=== PATIENT | male | born 1955 | race Two or more races ===

== ENCOUNTER → 2017-04-24 | Outpatient (CLI) | payer MEDICAID ==
[~2017-04-24] VITALS: Ht 167.6 cm; Wt 72.6 kg
== END | disposition home or self-care (01) ==
LOC: Rad HDHVI 09:44
PROVIDERS: ATTEND Internal Medicine Cardiovascular Disease
DX: I10 Essential (primary) hypertension (principal); E78.5 Hyperlipidemia, unspecified; I31.3 Pericardial effusion (noninflammatory); R07.89 Other chest pain; K21.9 Gastro-esophageal reflux disease without esophagitis
CPT/HCPCS: 78452; 93017; 93306; 96374; A9500

== ENCOUNTER 2020-01-12 16:06 | Inpatient (IN) | payer MEDICAID, OTHER ==
[~2020-01-12] VITALS: Ht 167.6 cm; Wt 73.6 kg
[2020-01-12 17:13] LABS: Basophils # (auto) 0 10 ^3/uL (0-0.2); Basophils % (auto) 0.1 % (0.0-2.0); Eosinophils # (auto) 0 10 ^3/uL (0-0.8); Hematocrit 48.8 % (41.0-53.0); Hemoglobin 16.4 g/dL (13.5-17.5); Lymphocytes # (auto) 0.6 10 ^3/uL (0.4-5.4); Mean Corpuscular Hemoglobin 27.4 pg (28.0-32.0); Mean Corpuscular Hgb Conc. 33.5 g/dL (32.0-36.0); Mean Corpuscular Volume 81.8 fL (80.0-100.0); Monocytes # (auto) 0.2 10 ^3/uL (0-1.3); Monocytes % (auto) 4.5 % (0.0-12.0); Neutrophils % (auto) 79.4 % (37.0-80.0); Nucleated Red Blood Cells % 0.3 %; Platelet Count (auto) 98 10^3/uL (140-450); Red Blood Cells 5.97 10^6/uL (4.5-5.90); Red Cell Distribution Width 14.6 % (11.8-14.3); White Blood Cell 3.8 10^3/uL (4.4-10.8)
[2020-01-12 17:26] LABS: Albumin 3.5 g/dL (3.4-5.0); Anion Gap 8 (5-15); BUN/Creatinine Ratio 16.2; Blood Urea Nitrogen 16 mg/dL (7-18); Calcium 9.2 mg/dL (8.5-10.1); Carbon Dioxide 27 mmol/L (21-32); Chloride 104 mmol/L (98-107); GFR African American 97 mL/min; GFR Non-African American 80 mL/min; Glucose 331 mg/dL (74-106); Magnesium 2.2 mg/dL (1.6-2.6); Potassium 4.2 mmol/L (3.5-5.1); Sodium 139 mmol/L (136-145)
[2020-01-12 17:31] LABS: Alanine Aminotransferase 60 U/L (16-61); Alkaline Phosphatase 88 U/L (45-117); Aspartate Aminotransferase 72 U/L (15-37); Bilirubin, Total 0.6 mg/dL (0.2-1.0); Total Protein 8.2 g/dL (6.4-8.2)
[2020-01-12 17:42] LABS: INR 1.03 (0.9-1.15); Partial Thromboplastin Time 34.2 sec (23.64-32.05)
[2020-01-12] MEDS ORDERED: SODIUM CHLORIDE 0.9% 1,000 ML IVB ONE (17:52)
[2020-01-12] MEDS ORDERED: DOXYCYCLINE 100 MG TAB/CAP PO ONE (18:00)
[2020-01-12] MEDS ORDERED: AZITHROMYCIN 500MG/ 250ML 250 ML IV ONE (18:00)
[2020-01-12] MEDS ORDERED: ASCORBIC ACID 500 MG TAB PO ONE (18:00)
[2020-01-12] MEDS ORDERED: ZINC SULFATE 220mg CAP or TAB PO ONE (18:00)
[2020-01-12] MEDS ORDERED: SODIUM CHLORIDE 0.9% 1,000 ML IV SCH (20:55)
[2020-01-12] MEDS ORDERED: MORPHINE SULF INJ 2 MG/ML SYRINGE 1ML IV PRN (21:00)
[2020-01-12] MEDS ORDERED: DEXTROSE (50%) 50ML SYRG IV PRN (21:00)
[2020-01-12] MEDS ORDERED: TEMAZEPAM 15 MG CAP PO PRN (21:00)
[2020-01-12] MEDS ORDERED: ONDANSETRON HCL 4 MG/2 ML VIAL IV PRN (21:00)
[2020-01-12] MEDS ORDERED: NITROGLYCERIN 0.4 MG SL TAB SL PRN (21:00)
[2020-01-12] MEDS ORDERED: cloNIDine HCL 0.1 MG TAB PO PRN (21:45)
[2020-01-12] MEDS: ALBUTEROL SULF HFA 90MCG INH 200DOSE IN SCH (22:00)
[2020-01-12 23:30] VITALS: BP 152/83
--- NOTE | 2020-01-12 23:30 | NUR ---
Telemetry admit from SEKOU WOODARD admitted to Telemetry unit. Patient oriented to primary RN, unit, room, bed, and unit policies regarding patient care and visiting hours. Patient now on continuous telemetry monitoring, tele box #21 and telemetry reading on arrival to unit is NSR. Patient placed on bedside oxygen, weighed by bedscale and encouraged to call if they need something. All questions and concerns addressed, patient verbalized understanding. Bed in lowest locked position, call light within reach, side rails upx 2. Will continue to monitor Q1hr and PRN.
[2020-01-12] MEDS: FAMOTIDINE 20 MG TAB PO SCH (23:35)
[2020-01-12] MEDS: DOXYCYCLINE 100MG/250ML 250 ML IV SCH (23:35)
[2020-01-13 00:36] VITALS: BP 133/80
[2020-01-13] MEDS: ACETAMINOPHEN 325 MG TAB PO PRN ×2 (00:50→23:30)
[2020-01-13] MEDS: InsuLIN REG 1unit/0.01ml Soln (100units/ml) SC SCH ×5 (00:50→23:45)
[2020-01-13] MEDS: ACCU-CHEK COMFORT CURVE STRIP VI SCH ×5 (00:51→23:29)
[2020-01-13 05:00] VITALS: BP 144/77
[2020-01-13 06:37] LABS: Basophils # (auto) 0 10 ^3/uL (0-0.2); Basophils % (auto) 0.4 % (0.0-2.0); Eosinophils # (auto) 0 10 ^3/uL (0-0.8); Hematocrit 46.7 % (41.0-53.0); Hemoglobin 15.5 g/dL (13.5-17.5); Lymphocytes # (auto) 0.8 10 ^3/uL (0.4-5.4); Lymphocytes % (auto) 17.3 % (10.0-50.0); Mean Corpuscular Hgb Conc. 33.1 g/dL (32.0-36.0); Mean Corpuscular Volume 81.5 fL (80.0-100.0); Monocytes # (auto) 0.2 10 ^3/uL (0-1.3); Monocytes % (auto) 5.4 % (0.0-12.0); Neutrophils # (auto) 3.5 10 ^3/uL (1.6-8.6); Neutrophils % (auto) 76.9 % (37.0-80.0); Nucleated Red Blood Cells % 0.2 %; Platelet Count (auto) 82 10^3/uL (140-450); Red Blood Cells 5.74 10^6/uL (4.5-5.90); Red Cell Distribution Width 14.7 % (11.8-14.3); White Blood Cell 4.6 10^3/uL (4.4-10.8)
[2020-01-13 07:02] LABS: Calcium 8.3 mg/dL (8.5-10.1); Magnesium 1.8 mg/dL (1.6-2.6); Potassium 3.9 mmol/L (3.5-5.1)
[2020-01-13 07:10] LABS: BUN/Creatinine Ratio 17.6; Bilirubin, Total 0.6 mg/dL (0.2-1.0); CRP High Sensitivity 10.7 mg/dL (< 0.3); Total Protein 7.1 g/dL (6.4-8.2)
[2020-01-13] MEDS: ALBUTEROL SULF HFA 90MCG INH 200DOSE IN SCH ×3 (08:12→23:05)
--- NOTE | 2020-01-13 08:12 | NUR ---
RT NOTE: MEDS HAD NOT BEEN ORDERED FROM PHARMACY PRIOR TO SHIFT CHANGE. WILL NOTIFY PHARMACY TO BULLET MEDS UP FOR NEXT SCHEDULED TX.
[2020-01-13 08:34] VITALS: BP 130/72
[2020-01-13] MEDS: ZINC SULFATE 220mg CAP or TAB PO SCH (09:57)
[2020-01-13] MEDS: ENOXAPARIN SOD 40 MG/0.4 ML SYRINGE SC SCH (09:58)
[2020-01-13] MEDS: ASCORBIC ACID 1,000 MG TAB PO SCH (09:58)
[2020-01-13] MEDS: DOXYCYCLINE 100MG/250ML 250 ML IV SCH ×2 (09:58→22:33)
[2020-01-13] MEDS: CHOLECALCIFEROL (VITD3) 1,000UNIT=25mCg TAB PO SCH (09:58)
[2020-01-13] MEDS: FAMOTIDINE 20 MG TAB PO SCH ×2 (09:58→22:33)
[2020-01-13 12:26] VITALS: BP 139/71
[2020-01-13] MEDS: amLODIPine BESYLATE 5 MG TAB PO SCH (13:34)
--- NOTE | 2020-01-13 16:26 | NUR ---
Assessment Patient is a 64- year-old male who is alert and oriented. Prior to admission patient lived home with family and function independently. Per patient he can care for her own ADLs. Per patient he does not have any medical equipment now. Per patient he will return to his prior living arrangements post discharge and family will transport him home. Patient PCP Dr. Lizarraga. Advise patient there is a social service consult for home oxygen and home health safety evaluation. Informed patient clinical information will be faxed to and contracted agencies for home health. Advised patient to follow up with his primary doctor. Informed patient he has the right to participate in all discharge planning. Patient verbalized understanding and agreed to discharge plan. Faxed clinical information to requesting to deliver portable oxygen to front lobby. Faxed clinical information to [facility] and [facility]. [facility] and [place] are unable to accommodate patient needs at this time. Per Ayleen with [facility] they can accept patient and will be seen within 24-48hrs upon d/c day. faxed clinical information to [facility] requesting authorization for home health and SG. Placed call to ABHINAV Quezada with [facility]. Per ABHINAV Quezada they will authorized for home health and SG. SG will deliver oxygen portable to front lobby between 16:00-19:00. Addendum: 01/13/20 at 1633 by KELBY SINGH Amended: Links added.
[2020-01-13] MEDS ORDERED: AML5T PO (16:40)
[2020-01-13] MEDS ORDERED: DOXY-338 PO (16:40)
[2020-01-13] MEDS ORDERED: ALBUAER3 IN (16:40)
[2020-01-13] MEDS ORDERED: IPRIH IN (16:40)
[2020-01-13 16:59] VITALS: BP 154/80
--- NOTE | 2020-01-13 19:20 | NUR ---
Opening note pt is A&Ox4. respirations even and nonlabored on 4Lnc. pt has a nonproductive cough. pt is ambulatory, and is encouraged to ask for standby assistance if wanting to get out of bed. POC discussed. bed in low locked position, call light within reach.
[2020-01-13 22:00] VITALS: BP 160/83
[2020-01-14 00:35] VITALS: BP 125/90
[2020-01-14 05:00] VITALS: BP 144/79
[2020-01-14] MEDS: ACCU-CHEK COMFORT CURVE STRIP VI SCH ×3 (05:17→17:44)
[2020-01-14] MEDS: InsuLIN REG 1unit/0.01ml Soln (100units/ml) SC SCH ×3 (05:22→17:46)
--- NOTE | 2020-01-14 07:18 | NUR ---
Closing note Pt is A&Ox4. respirations even and nonlabored on 4Lnc. Spo2 saturations are at 92%. no s/s of pain or discomfort at this time. pt is ambulatory. Endorsed care to day shift RN. Bed in low locked position, call light within reach.
[2020-01-14] MEDS: ALBUTEROL SULF HFA 90MCG INH 200DOSE IN SCH ×2 (07:30→15:52)
[2020-01-14 09:02] VITALS: BP 131/71
[2020-01-14] MEDS ORDERED: DexAMETHasone SOD PHOS 4 MG/1ML SDV INJ IV SCH (10:00)
[2020-01-14] MEDS: ASCORBIC ACID 1,000 MG TAB PO SCH (11:32)
[2020-01-14] MEDS: amLODIPine BESYLATE 5 MG TAB PO SCH (11:33)
[2020-01-14] MEDS: DOXYCYCLINE 100MG/250ML 250 ML IV SCH (11:34)
[2020-01-14] MEDS: CHOLECALCIFEROL (VITD3) 1,000UNIT=25mCg TAB PO SCH (11:34)
[2020-01-14] MEDS: FAMOTIDINE 20 MG TAB PO SCH (11:34)
[2020-01-14] MEDS: ACETAMINOPHEN 325 MG TAB PO PRN (11:34)
[2020-01-14] MEDS: ENOXAPARIN SOD 40 MG/0.4 ML SYRINGE SC SCH (11:36)
[2020-01-14] MEDS ORDERED: DexAMETHasone SOD PHOS 10MG/1ML VIAL INJ IV SCH (11:36)
[2020-01-14] MEDS: ZINC SULFATE 220mg CAP or TAB PO SCH (12:00)
[2020-01-14 12:30] VITALS: BP 151/79
[2020-01-14] MEDS ORDERED: PRED20TA2 PO (13:57)
[2020-01-14 17:30] VITALS: BP 132/72
--- NOTE | 2020-01-14 17:50 | NUR ---
spoke with dr nova. stated pt was cleared to dc.
--- NOTE | 2020-01-14 18:15 | NUR ---
SPOKE WITH SON REGARDING DC. STATED HE COULD BE HERE AT 1930.
[2020-01-14 18:28] VITALS: BP 132/72
--- NOTE | 2020-01-14 18:55 | NUR ---
DURING DC PROCESSES, HOME O2 TANKS AT BEDSIDE WERE FOUND TO BE LEAKING O2 WHEN VALVE WAS OPENED. PHONED SG REGARDING THIS AND UPDATED SON. SG STATED THEY WOULD REACH OUT TO A RESOURCE COORDINATOR AND CALLBACK. DC ENDORSED TO LAI SILVA.
--- NOTE | 2020-01-14 19:15 | NUR ---
Opening note pt A&Ox4. [place] Islander speaking. Respirations even and nonlabored on 3Lnc. pt denies pain or discomfort at this time. Pt will be discharged today, pending delivery of functional home oxygen tank delivery by [employer].
--- NOTE | 2020-01-14 20:35 | NUR ---
Jesus Alberto of [employer] delivered oxygen tank for pt.
--- NOTE | 2020-01-14 21:00 | NUR ---
Discharge IV and tele monitor removed. Pt escorted to down to the main entrance with Resource RN Rocio, EVS, and Public Safety. Pt escorted via wheel chair. Pts Son Chris is waiting at main entrance for picking tech.
--- NOTE | 2020-01-15 14:51 | NUR ---
Received page for consult for hospice eval. Per pt's sister Laurel she is requesting [facility]. Contacted DAMARIS Fairchild for [facility], and faxed clinical information. Pt accepted onto service and portatble tank to be delivered to the bedside. Transportation setup through [employer] for a 4 pm orange picking supervisor. No further social service concerns or issues.
== END 2020-01-14 21:15 | disposition home health service (06) | DRG 177 ==
LOC: ER 16:06 → TELE 16:07 → TELE-EAST 23:26
PROVIDERS: ADMIT Nurse Practitioner; ATTEND Internal Medicine
DX: U07.1 COVID-19 (principal); J12.89 Other viral pneumonia; J96.01 Acute respiratory failure with hypoxia; J98.11 Atelectasis; E11.9 Type 2 diabetes mellitus without complications; I10 Essential (primary) hypertension; E66.9 Obesity, unspecified; E78.5 Hyperlipidemia, unspecified; Z79.4 Long term (current) use of insulin; Z82.49 Family history of ischemic heart disease and other diseases of the circulatory system; Z83.3 Family history of diabetes mellitus; Z68.26 Body mass index [BMI] 26.0-26.9, adult
CPT/HCPCS: 36415; 71045; 80053; 82728; 82962; 83605; 83615; 83735; 84443; 84484; 85025; 85379; 85610; 85730; 86141; 87040; 93005; 94640; 96365; 96366; G0378; J1100; J1815; J3490

== ENCOUNTER 2020-01-18 19:28 | Inpatient (IN) | payer OTHER ==
[~2020-01-18] VITALS: Ht 170.2 cm; Wt 84.2 kg
[2020-01-18] MEDS: LORazepam 2MG/ML-1ML VIAL IV PRN (00:05)
[~2020-01-18 19:28] MED LIST: ALBUAER3 IN; AML5T PO; DOXY-338 PO; IPRIH IN; PRED20TA2 PO
[2020-01-18 20:44] LABS: Basophils # (auto) 0 10 ^3/uL (0-0.2); Basophils % (auto) 0.1 % (0.0-2.0); Eosinophils # (auto) 0 10 ^3/uL (0-0.8); Lymphocytes # (auto) 0.7 10 ^3/uL (0.4-5.4); Monocytes # (auto) 0.7 10 ^3/uL (0-1.3)
[2020-01-18 20:45] LABS: Hematocrit 51.6 % (41.0-53.0); Hemoglobin 16.6 g/dL (13.5-17.5); Lymphocytes % (auto) 8.4 % (10.0-50.0); Mean Corpuscular Hemoglobin 26.3 pg (28.0-32.0); Mean Corpuscular Hgb Conc. 32.2 g/dL (32.0-36.0); Mean Corpuscular Volume 81.8 fL (80.0-100.0); Monocytes % (auto) 8.1 % (0.0-12.0); Neutrophils # (auto) 7.2 10 ^3/uL (1.6-8.6); Neutrophils % (auto) 83.4 % (37.0-80.0); Nucleated Red Blood Cells % 0.2 %; Platelet Count (auto) 182 10^3/uL (140-450); Red Blood Cells 6.31 10^6/uL (4.5-5.90); Red Cell Distribution Width 15.9 % (11.8-14.3); White Blood Cell 8.6 10^3/uL (4.4-10.8)
[2020-01-18 20:58] LABS: Urine WBC None Seen /hpf (0 - 3)
[2020-01-18 21:02] LABS: Albumin 2.9 g/dL (3.4-5.0); Anion Gap 12 (5-15); Blood Urea Nitrogen 33 mg/dL (7-18); Calcium 9.2 mg/dL (8.5-10.1); Carbon Dioxide 22 mmol/L (21-32); Chloride 100 mmol/L (98-107); Potassium 4.5 mmol/L (3.5-5.1); Sodium 134 mmol/L (136-145)
[2020-01-18 21:04] LABS: Alanine Aminotransferase 47 U/L (16-61); Aspartate Aminotransferase 49 U/L (15-37); Bilirubin, Total 0.8 mg/dL (0.2-1.0); GFR African American 76 mL/min; GFR Non-African American 63 mL/min; Total Protein 7.8 g/dL (6.4-8.2)
[2020-01-18 21:11] LABS: Alkaline Phosphatase 111 U/L (45-117)
[2020-01-18 21:21] LABS: Glucose 616 mg/dL (74-106)
[2020-01-18 21:23] LABS: Urine Bacteria NONE SEEN /hpf (None Seen); Urine Blood Negative /uL (Negative); Urine Specific Gravity 1.028 (1.001-1.035)
[2020-01-18] MEDS ORDERED: SODIUM CHLORIDE 0.9% 1,000 ML IV ONE (21:30)
[2020-01-18] MEDS ORDERED: LORazepam 2MG/ML-1ML VIAL IV ONE ×2 (21:30→22:30)
[2020-01-18] MEDS ORDERED: InsuLIN REG 1unit/0.01ml Soln (100units/ml) IV ONE (21:30)
[2020-01-18] MEDS ORDERED: SUCCINYLCHOLINE CHLORIDE 20 MG/ML 10ML VIAL IV ONE (22:30)
[2020-01-18] MEDS: MIDAZOLAM DRIP 50 mg/50mL 50 ML IV SCH ×2 (22:30→23:20)
[2020-01-18] MEDS ORDERED: ETOMIDATE (2MG/ML) 20ML VIAL IV ONE (22:30)
[2020-01-18] MEDS: NOREPINEPHRINE 8 MG/250ML KIT 250 ML IV SCH ×2 (22:30→23:19)
[2020-01-19] MEDS: LORazepam 2MG/ML-1ML VIAL IV PRN ×3 (00:05→15:29)
[2020-01-19] MEDS ORDERED: InsuLIN REG 1unit/0.01ml Soln (100units/ml) IV ONE (00:30)
[2020-01-19] MEDS ORDERED: SODIUM CHLORIDE 0.9% 1,000 ML IV SCH (05:54)
[2020-01-19] MEDS ORDERED: NITROGLYCERIN 0.4 MG SL TAB SL PRN (06:00)
[2020-01-19] MEDS ORDERED: ONDANSETRON HCL 4 MG/2 ML VIAL IV PRN (06:00)
[2020-01-19] MEDS ORDERED: MORPHINE SULF INJ 2 MG/ML SYRINGE 1ML IV PRN (06:00)
[2020-01-19] MEDS ORDERED: DEXTROSE (50%) 50ML SYRG IV PRN (06:00)
[2020-01-19] MEDS: ALBUTEROL SULF HFA 90MCG INH 200DOSE IN SCH ×2 (06:15→13:42)
[2020-01-19] MEDS: ACCU-CHEK COMFORT CURVE STRIP VI SCH ×3 (06:49→18:00)
[2020-01-19] MEDS: InsuLIN REG 1unit/0.01ml Soln (100units/ml) SC SCH ×3 (06:50→18:00)
[2020-01-19] MEDS: levoFLOXacin 750MG 150 ML IV SCH (07:00)
[2020-01-19 07:38] LABS: Magnesium 2.4 mg/dL (1.6-2.6)
[2020-01-19 07:47] LABS: CRP High Sensitivity 9.62 mg/dL (< 0.3)
[2020-01-19] MEDS ORDERED: ENOXAPARIN SOD 40 MG/0.4 ML SYRINGE SC SCH (10:00)
[2020-01-19] MEDS: DexAMETHasone SOD PHOS 10MG/1ML VIAL INJ IV SCH (10:30)
[2020-01-19] MEDS: ASCORBIC ACID 1,000 MG TAB PO SCH (10:30)
[2020-01-19] MEDS: ZINC SULFATE 220mg CAP or TAB PO SCH (10:30)
[2020-01-19] MEDS: DOXYCYCLINE 100MG/250ML 250 ML IV SCH ×2 (10:30→23:05)
[2020-01-19] MEDS: ENOXAPARIN SOD 40 MG/0.4 ML SYRINGE SC SCH (10:30)
[2020-01-19] MEDS: CHOLECALCIFEROL (VITD3) 2,000 UNIT CAP PO SCH (10:30)
[2020-01-19] MEDS: FAMOTIDINE 20 MG TAB PO SCH ×2 (10:30→23:05)
[2020-01-19 14:10] VITALS: BP 137/64
[2020-01-19 23:39] LABS: BUN/Creatinine Ratio 28.8; Calcium 8.6 mg/dL (8.5-10.1); Potassium 3.9 mmol/L (3.5-5.1)
[2020-01-20] MEDS: LORazepam 2MG/ML-1ML VIAL IV PRN ×2 (00:05→07:48)
[2020-01-20] MEDS: ALBUTEROL SULF HFA 90MCG INH 200DOSE IN SCH ×2 (00:11→06:00)
[2020-01-20] MEDS: InsuLIN REG 1unit/0.01ml Soln (100units/ml) SC SCH ×4 (00:38→18:01)
[2020-01-20] MEDS: ACCU-CHEK COMFORT CURVE STRIP VI SCH ×4 (00:46→18:01)
[2020-01-20] MEDS: levoFLOXacin 750MG 150 ML IV SCH (07:27)
[2020-01-20 07:38] LABS: Basophils # (auto) 0 10 ^3/uL (0-0.2); Eosinophils # (auto) 0 10 ^3/uL (0-0.8); Mean Corpuscular Hgb Conc. 32.9 g/dL (32.0-36.0); Nucleated Red Blood Cells % 0.2 %
[2020-01-20 07:41] LABS: Basophils % (auto) 0.2 % (0.0-2.0); Hematocrit 53.2 % (41.0-53.0); Hemoglobin 17.5 g/dL (13.5-17.5); Lymphocytes # (auto) 0.6 10 ^3/uL (0.4-5.4); Lymphocytes % (auto) 3.8 % (10.0-50.0); Mean Corpuscular Hemoglobin 26.8 pg (28.0-32.0); Mean Corpuscular Volume 81.5 fL (80.0-100.0); Monocytes % (auto) 6.6 % (0.0-12.0); Neutrophils # (auto) 14.1 10 ^3/uL (1.6-8.6); Neutrophils % (auto) 89.4 % (37.0-80.0); Platelet Count (auto) 185 10^3/uL (140-450); Red Blood Cells 6.53 10^6/uL (4.5-5.90); Red Cell Distribution Width 15.4 % (11.8-14.3); White Blood Cell 15.7 10^3/uL (4.4-10.8)
[2020-01-20 07:55] LABS: Calcium 8.6 mg/dL (8.5-10.1); Potassium 3.9 mmol/L (3.5-5.1)
[2020-01-20 07:59] LABS: Albumin 2.7 g/dL (3.4-5.0); BUN/Creatinine Ratio 29.9; Magnesium 2.2 mg/dL (1.6-2.6)
[2020-01-20 08:02] LABS: Bilirubin, Total 1.1 mg/dL (0.2-1.0); Total Protein 7.8 g/dL (6.4-8.2)
[2020-01-20 08:04] LABS: Lactic Acid w/Reflex 3.3 mmol/L (0.4-2.0)
[2020-01-20] MEDS ORDERED: SUCCINYLCHOLINE CHLORIDE 20 MG/ML 10ML VIAL IV ONE ×2 (08:45→11:30)
[2020-01-20] MEDS ORDERED: ETOMIDATE (2MG/ML) 20ML VIAL IV ONE ×2 (08:45→11:30)
[2020-01-20 08:46] LABS: Alcohol, Urine < 3.0 mg/dL (0-10); Amphetamine Screen, Urine NEGATIVE (NEGATIVE); Barbiturate Scree,Urine NEGATIVE (NEGATIVE); Benzodiazephine Screen, Urine NEGATIVE (NEGATIVE); Cannabinoid Screen, Urine NEGATIVE (NEGATIVE); Cocaine Screen, Urine NEGATIVE (NEGATIVE); Opiate Scree,Urine NEGATIVE (NEGATIVE); Phencyclidine Screen, Urine NEGATIVE (NEGATIVE)
[2020-01-20] MEDS ORDERED: MIDAZOLAM DRIP 50 mg/50mL 50 ML IV ONE (08:46)
[2020-01-20 09:20] VITALS: BP 143/88
[2020-01-20] MEDS: ZINC SULFATE 220mg CAP or TAB PO SCH (10:00)
[2020-01-20] MEDS: FAMOTIDINE 20 MG TAB PO SCH ×2 (10:00→22:00)
[2020-01-20] MEDS ORDERED: LORazepam 2MG/ML-1ML VIAL ONE (10:08)
[2020-01-20] MEDS ORDERED: LORazepam 2MG/ML-1ML VIAL IV ONE (10:15)
[2020-01-20] MEDS ORDERED: HALOPERIDOL LACTATE 5 MG/ML INJ VIAL IM ONE (10:15)
[2020-01-20] MEDS: hydrOXYchloroQUINE SULFATE 200 MG TAB PO SCH (10:30)
[2020-01-20] MEDS: ASCORBIC ACID 1,000 MG TAB PO SCH (10:30)
[2020-01-20] MEDS: CHOLECALCIFEROL (VITD3) 2,000 UNIT CAP PO SCH (10:31)
[2020-01-20] MEDS: ENOXAPARIN SOD 40 MG/0.4 ML SYRINGE SC SCH (10:32)
[2020-01-20] MEDS: DexAMETHasone SOD PHOS 10MG/1ML VIAL INJ IV SCH (10:48)
[2020-01-20] MEDS: DOXYCYCLINE 100MG/250ML 250 ML IV SCH ×2 (10:49→22:48)
[2020-01-20 11:09] VITALS: BP 138/81
[2020-01-20] MEDS ORDERED: PROPOFOL 100 ML IV ONE (11:33)
[2020-01-20] MEDS: MIDAZOLAM DRIP 50 mg/50mL 50 ML IV SCH (11:38)
[2020-01-20 11:40] VITALS: BP 114/75
[2020-01-20] MEDS: fentaNYL Drip 2500mCg/250mlNS 250 ML IV SCH (11:40)
[2020-01-20] MEDS: PROPOFOL 100 ML IV SCH (11:40)
[2020-01-20 15:10] VITALS: BP 114/75
[2020-01-20 19:05] VITALS: BP 97/69
[2020-01-20 22:51] VITALS: BP 92/58
[2020-01-20] MEDS: ALBUTEROL SULF 2.5 MG/0.5ML(0.5%) NEB SOLN NEB SCH (23:09)
[2020-01-21] MEDS: PIPERACILLIN-TAZOB 3.375GM 100 ML IV SCH ×4 (00:44→18:11)
[2020-01-21] MEDS: InsuLIN REG 1unit/0.01ml Soln (100units/ml) SC SCH ×4 (00:45→18:28)
[2020-01-21] MEDS: ACCU-CHEK COMFORT CURVE STRIP VI SCH ×4 (00:45→18:21)
[2020-01-21 02:12] VITALS: BP 99/69
[2020-01-21 06:52] VITALS: BP 100/67
[2020-01-21] MEDS: ALBUTEROL SULF 2.5 MG/0.5ML(0.5%) NEB SOLN NEB SCH ×3 (06:52→22:23)
[2020-01-21 07:55] LABS: Basophils # (auto) 0 10 ^3/uL (0-0.2); Eosinophils # (auto) 0 10 ^3/uL (0-0.8); Hemoglobin 15.7 g/dL (13.5-17.5); Lymphocytes # (auto) 0.2 10 ^3/uL (0.4-5.4); Lymphocytes % (auto) 1.4 % (10.0-50.0); Mean Corpuscular Hemoglobin 26.8 pg (28.0-32.0); Mean Corpuscular Hgb Conc. 32.8 g/dL (32.0-36.0); Mean Corpuscular Volume 81.7 fL (80.0-100.0); Monocytes # (auto) 0.4 10 ^3/uL (0-1.3); Monocytes % (auto) 3.7 % (0.0-12.0); Red Cell Distribution Width 15.3 % (11.8-14.3)
[2020-01-21 07:57] LABS: Basophils % (auto) 0.2 % (0.0-2.0); Hematocrit 47.9 % (41.0-53.0); Neutrophils # (auto) 11.1 10 ^3/uL (1.6-8.6); Neutrophils % (auto) 94.7 % (37.0-80.0); Platelet Count (auto) 119 10^3/uL (140-450); Red Blood Cells 5.86 10^6/uL (4.5-5.90); White Blood Cell 11.7 10^3/uL (4.4-10.8)
[2020-01-21 08:14] LABS: Albumin 2.4 g/dL (3.4-5.0)
[2020-01-21 08:20] LABS: BUN/Creatinine Ratio 37.8; Bilirubin, Total 0.9 mg/dL (0.2-1.0); Total Protein 6.9 g/dL (6.4-8.2)
[2020-01-21] MEDS: DexAMETHasone SOD PHOS 10MG/1ML VIAL INJ IV SCH (09:48)
[2020-01-21] MEDS: DOXYCYCLINE 100MG/250ML 250 ML IV SCH ×2 (09:48→22:00)
[2020-01-21] MEDS: ZINC SULFATE 220mg CAP or TAB PO SCH (09:49)
[2020-01-21] MEDS: FAMOTIDINE 20 MG TAB PO SCH ×2 (09:49→22:00)
[2020-01-21] MEDS: ASCORBIC ACID 1,000 MG TAB PO SCH (09:49)
[2020-01-21] MEDS: CHOLECALCIFEROL (VITD3) 2,000 UNIT CAP PO SCH (09:49)
[2020-01-21] MEDS: ENOXAPARIN SOD 40 MG/0.4 ML SYRINGE SC SCH (09:49)
[2020-01-21] MEDS: hydrOXYchloroQUINE SULFATE 200 MG TAB PO SCH (09:49)
[2020-01-21 10:20] VITALS: BP 98/59
[2020-01-21] MEDS: fentaNYL Drip 2500mCg/250mlNS 250 ML IV SCH (11:25)
[2020-01-21] MEDS: PROPOFOL 100 ML IV SCH (11:26)
[2020-01-21] MEDS: MIDAZOLAM DRIP 50 mg/50mL 50 ML IV SCH ×2 (11:26→23:00)
[2020-01-21 14:30] VITALS: BP 99/67
--- NOTE | 2020-01-21 14:56 | NUR ---
Nutrition Assessment Notes please see attached link for complete assessment [employer] needs BW 65 [id number] kcals (25-30 kcal/kgBW), Est Protein needs: 65-78 gms/day (1.0-1.2 gm/kgBW). Will continue to monitor and reassess prn. Rec: En support with Glucerna @ 65 ml/hr per MD approval Addendum: 01/21/20 at [address] Amended: Links added.
[2020-01-21 19:01] VITALS: BP 94/61
[2020-01-21 22:52] VITALS: BP 100/61
[2020-01-22] VITALS (30 sets, daily range): BP systolic 93–121; BP diastolic 57–74
[2020-01-22] MEDS: PROPOFOL 100 ML IV SCH
[2020-01-22] MEDS: MIDAZOLAM DRIP 50 mg/50mL 50 ML IV SCH ×2 (04:00→19:21)
[2020-01-22] MEDS: PIPERACILLIN-TAZOB 3.375GM 100 ML IV SCH ×4 (06:00→20:12)
[2020-01-22] MEDS: ALBUTEROL SULF 2.5 MG/0.5ML(0.5%) NEB SOLN NEB SCH ×3 (06:37→22:22)
[2020-01-22] MEDS: ACCU-CHEK COMFORT CURVE STRIP VI SCH ×4 (07:07→20:12)
[2020-01-22] MEDS: InsuLIN REG 1unit/0.01ml Soln (100units/ml) SC SCH ×4 (07:08→20:12)
--- NOTE | 2020-01-22 09:28 | NUR ---
WOUND CARE NOTE: SPECIALTY AIR BED ORDERED AT THIS TIME. PATIENT TO BE PLACED, PENDING DELIVERY BY ALFRED TAYLOR
[2020-01-22] MEDS ORDERED: MIDAZOLAM DRIP 50 mg/50mL 50 ML IV ONE (09:59)
[2020-01-22] MEDS: ENOXAPARIN SOD 40 MG/0.4 ML SYRINGE SC SCH (10:16)
[2020-01-22] MEDS: FAMOTIDINE 20 MG TAB PO SCH ×2 (10:16→22:00)
[2020-01-22] MEDS: ASCORBIC ACID 1,000 MG TAB PO SCH (10:16)
[2020-01-22] MEDS: CHOLECALCIFEROL (VITD3) 2,000 UNIT CAP PO SCH (10:16)
[2020-01-22] MEDS: hydrOXYchloroQUINE SULFATE 200 MG TAB PO SCH (10:16)
[2020-01-22] MEDS: DexAMETHasone SOD PHOS 10MG/1ML VIAL INJ IV SCH (10:16)
[2020-01-22] MEDS: ZINC SULFATE 220mg CAP or TAB PO SCH (10:16)
[2020-01-22] MEDS: DOXYCYCLINE 100MG/250ML 250 ML IV SCH ×2 (10:40→21:26)
[2020-01-22] MEDS: fentaNYL Drip 2500mCg/250mlNS 250 ML IV SCH (11:21)
[2020-01-22] MEDS ORDERED: DEXTROSE (50%) 50ML SYRG IV PRN (12:45)
[2020-01-22] MEDS ORDERED: INSULIN LANTUS (GLARGINE) 1 /0.01ml (100units/ml) SC ONE (12:45)
--- NOTE | 2020-01-22 14:30 | NUR ---
WOUND CARE NOTE: IN TO SEE PATIENT AT THIS TIME PER WOUND CARE CONSULT REQUEST. PATIENT IS INTUBATED, SEDATED IN ER. PATIENT IS AIRBORNE ISOLATION FOR COVID 19. HE WAS ADMITTED TO [facility] WITH DIAGNOSIS OF PNA, COVID 19. CURRENT STORM SCORE IS 10. PATIENT IS INTUBATED, SEDATED. DELIVERY OF IRONS ROM BED IS PENDING, PATIENT CONTINUES TO REST ON GURNEY. PATIENT TURNED TO RIGHT SIDE. HE IS NOTED TO HAVE A BLANCHABLE REDDENED SACRUM NOTED. SKIN INTACT, BLANCHES. APPLIED OPTIFOAM GENTLE SACRAL DRESSING PREVENTATIVE. RECOMMEND: FREQUENT TURN SCHEDULE Q 2 HOURS, PRN CONDITION PERMITS, WITH PRESSURE REDISTRIBUTION USING PILLOWS/WEDGES, BID/PRN APPLICATION WITH MOISTURE BARRIER CREAM, OPTIFOAM GENTLE SACRAL DRESSING, SKIN/WOUND CARE PLAN, [facility] AIR BED, DIETARY CONSULT FOR INTUBATION, CONTINUED MONITORING BY WOUND CARE TEAM.
[2020-01-22] MEDS ORDERED: [UNRECOGNIZED DRUG - OTHER] IV SCH (17:00)
--- NOTE | 2020-01-22 18:05 | NUR ---
Received patient from ED, report given from assigned RN. COVID 19 positive . Assumed care of patient in ICU. Paitient on Mechanical Vent AC 16 FIO2 55% PEEP 12 TV 450. Vega catheter to gravity yellow/pink urine. NSR HR 80-'s . Patient on Versed, Fentanyl and Propofol. Active bowel sounds. Last BSC 379, new orders for steep sliding scale and Lantus.Will continue care.
--- NOTE | 2020-01-22 19:00 | NUR ---
Report given to assigned PM nurse. Endorsed care.
--- NOTE | 2020-01-22 19:00 | NUR ---
Patient in no signs of distress. Sedated on propofol, versed and fentanyl. Oral secretions scant and clear. ETT secretions via inline suctioning scant, clear. Oral care completed. Vega catheter total 800 ml urine output. Skin WNL. Left 3x Lumen IJ central line.
--- NOTE | 2020-01-22 19:26 | NUR ---
Opening Shift Note Assumed care of patient sedated and intubated. Patient on continuous bedside patient monitor and continuous pulse oximetry. No S/S of distress/SOB. Bed is in lowest position and locked. Board updated. Ventilator settings match orders. FiO2 is 55%. Vega catheter secured to bedside and non-moveable part of bed rail. Instructed on POC and to call for assist PRN, will continue to monitor for changes Q1hr and PRN.
--- NOTE | 2020-01-22 20:38 | NUR ---
Received a call from Chris, patient's son and NOK and set up password with him and gave him an update on his father's condition.
--- NOTE | 2020-01-22 20:59 | NUR ---
Spoke to MD Lentz, who is on-call for MD Cunningham, and notified him of critical blood glucose level (428). Order received: Increase Lantus to 15 units q AM and give Lantus 15 units SC now. Order repeated, verified, and placed.
--- NOTE | 2020-01-22 21:00 | NUR ---
Unable to perform sedation vacation at this time. Patient is too hemodynamically unstable and requires 55% FiO2 to maintain oxygen saturation in low 90s. Addendum: 01/23/20 at 0104 by RAFFAELE RANGEL RN Amended: Links added.
[2020-01-22] MEDS: INSULIN LANTUS (GLARGINE) 1 /0.01ml (100units/ml) SC SCH (21:26)
[2020-01-23] VITALS (79 sets, daily range): BP systolic 96–125; BP diastolic 57–75
[2020-01-23] MEDS: ACCU-CHEK COMFORT CURVE STRIP VI SCH ×4 (00:14→17:55)
[2020-01-23] MEDS: InsuLIN REG 1unit/0.01ml Soln (100units/ml) SC SCH ×5 (00:24→17:56)
[2020-01-23] MEDS: PIPERACILLIN-TAZOB 3.375GM 100 ML IV SCH ×4 (00:24→19:00)
--- NOTE | 2020-01-23 00:24 | NUR ---
Cooling measures started. Patient's temp is currently 98.8. Will continue to assess.
--- NOTE | 2020-01-23 00:29 | NUR ---
Spoke to MD Lentz and notified him of elevated blood glucose of 439. Also notified him of ST elevation and EKG results (Normal sinus rhythm). MD Lentz ordered potassium draw for AM but BMP is already ordered so I will draw that instead. MD Lentz was told that patient was on aggressive scale q 6 hrs. No other orders given.
[2020-01-23] MEDS ORDERED: SODIUM BICARBONATE 8.4 % INJ 50ML VIAL IV ONE (02:45)
[2020-01-23] MEDS ORDERED: SODIUM BICARBONATE 8.4% INJ 50ML SYRINGE ONE (02:46)
[2020-01-23] MEDS ORDERED: DULA0.5I SC (03:07)
--- NOTE | 2020-01-23 03:25 | NUR ---
Bed bath and complete linen change performed. Patient tolerated well.
[2020-01-23 04:53] LABS: Basophils # (auto) 0 10 ^3/uL (0-0.2); Eosinophils # (auto) 0 10 ^3/uL (0-0.8); Hematocrit 44.8 % (41.0-53.0); Lymphocytes # (auto) 0.1 10 ^3/uL (0.4-5.4); Monocytes # (auto) 0.4 10 ^3/uL (0-1.3); Neutrophils # (auto) 7.7 10 ^3/uL (1.6-8.6); Nucleated Red Blood Cells % 0.2 %; White Blood Cell 8.2 10^3/uL (4.4-10.8)
[2020-01-23 04:57] LABS: Basophils % (auto) 0.2 % (0.0-2.0); Hemoglobin 14.5 g/dL (13.5-17.5); Lymphocytes % (auto) 0.9 % (10.0-50.0); Mean Corpuscular Hemoglobin 26.7 pg (28.0-32.0); Mean Corpuscular Hgb Conc. 32.4 g/dL (32.0-36.0); Mean Corpuscular Volume 82.3 fL (80.0-100.0); Monocytes % (auto) 5.1 % (0.0-12.0); Neutrophils % (auto) 93.8 % (37.0-80.0); Platelet Count (auto) 98 10^3/uL (140-450); Red Blood Cells 5.44 10^6/uL (4.5-5.90); Red Cell Distribution Width 15.7 % (11.8-14.3)
[2020-01-23 05:11] LABS: Calcium 7.8 mg/dL (8.5-10.1); Potassium 4.8 mmol/L (3.5-5.1)
[2020-01-23 05:22] LABS: Albumin 1.9 g/dL (3.4-5.0); BUN/Creatinine Ratio 37.9; Bilirubin, Total 0.7 mg/dL (0.2-1.0); CRP High Sensitivity 5.26 mg/dL (< 0.3); Total Protein 6.5 g/dL (6.4-8.2)
--- NOTE | 2020-01-23 05:48 | NUR ---
Patient's temp is now 98.2. Cooling measures stopped. Will continue to assess.
[2020-01-23] MEDS: INSULIN LANTUS (GLARGINE) 1 /0.01ml (100units/ml) SC SCH (06:44)
[2020-01-23] MEDS: MIDAZOLAM DRIP 50 mg/50mL 50 ML IV SCH ×2 (06:58→21:30)
[2020-01-23] MEDS ORDERED: INSULIN LANTUS (GLARGINE) 1 /0.01ml (100units/ml) SC SCH (07:00)
--- NOTE | 2020-01-23 07:00 | NUR ---
Report received from NIGHT RN, assumed care of patient. Patient in no signs of distress. Mechanical vent settings TV 450 AC 16 FIO2 50% PEEP 5 SPO2 93%. Sedation propofol 15 mcg, Versed 4 mg, Fentanyl 50 mcg. Patient in NSR HR 60, patient has peaked T-waves, doctor notified by p.m. nurse. Patient withdraws to pain, pupils 3mm brisk. No BM, NPO. Vega catheter to gravity, output 1150 ml. Skin WNL. Will continue to monitor.
--- NOTE | 2020-01-23 07:12 | NUR ---
Report given to day shift RN. Patient exhibiting no signs of distress or SOB at this time.
--- NOTE | 2020-01-23 08:30 | NUR ---
AM care Patient repositioned, able to tolerate lying flat, sedation vacation until patient started coughing. Oral care and partial hygiene completed. Patient tolerated . Will continue to monitor.
[2020-01-23] MEDS: ALBUTEROL SULF 2.5 MG/0.5ML(0.5%) NEB SOLN NEB SCH ×3 (08:40→22:31)
[2020-01-23] MEDS: CHOLECALCIFEROL (VITD3) 2,000 UNIT CAP PO SCH (10:00)
[2020-01-23] MEDS: ENOXAPARIN SOD 40 MG/0.4 ML SYRINGE SC SCH (10:00)
--- NOTE | 2020-01-23 10:00 | NUR ---
RN bedside patient repositioned and oral care completed. SPO2 upon entry into room 88%, repsponded to suctioning and repositioning.
--- NOTE | 2020-01-23 10:49 | NUR ---
Consult/Nutrition Followup Note Wt 64.8kg Pt is covid positive transferred to ICU. Pt is intubated and sedated per MD note with propofol running at 5.171 ml/hr which provides 137 kcal from lipids. Consider TF of Glucerna 1.2 at 65ml/hr if GI is accessible. Est Energy needs BW 65 [id number] kcals (25-30 kcal/kgBW), Est Protein needs: 65-78 gms/day (1.0-1.2 gm/kgBW). Will continue to monitor and reassess prn. Rec: En support with Glucerna @ 65 ml/hr per MD approval Labs: BUN 39H, GLUC 361H, Alb 1.9L, Ca 7.8L BM: pt with no recorded BMs per RN note Skin: BS 10 high risk, skin intact, full details in special needs child caregiver note PES; Altered nutrition related lab values r.t current chronic medical condition aeb elev BUN hyperglycemia, mod hypoalb Impaired swallowing r.t current medical condition aeb pt`s intubated sedated with order of NPO Comments: 1) consider EN support with Glucerna @ 65 ml/hr per MD approval at current rate of propofol 2) advanced diet as medically feasible 3) refer to CDE on DC 4) continue current plan of care Expected Outcomes/Goals: pt will have improved labs pt will get > 75% of needs F/u high 2-3 days
[2020-01-23] MEDS: DOXYCYCLINE 100MG/250ML 250 ML IV SCH ×2 (11:24→22:00)
[2020-01-23] MEDS: hydrOXYchloroQUINE SULFATE 200 MG TAB PO SCH (11:25)
[2020-01-23] MEDS: ZINC SULFATE 220mg CAP or TAB PO SCH (11:25)
[2020-01-23] MEDS: ASCORBIC ACID 1,000 MG TAB PO SCH (11:25)
[2020-01-23] MEDS: FAMOTIDINE 20 MG TAB PO SCH ×2 (11:25→22:00)
[2020-01-23] MEDS: DexAMETHasone SOD PHOS 10MG/1ML VIAL INJ IV SCH (11:27)
--- NOTE | 2020-01-23 11:30 | NUR ---
RN bedside. Patient tolerating repositioning, ETT incline secretions scant/none , clear. Oral secretions scant. Patient withdraws to pain and moves when sedation is backed off.
--- NOTE | 2020-01-23 12:10 | NUR ---
RN bedside, repositioning, oral care. Patient in no signs of distress, tolerating ventilation well.
[2020-01-23] MEDS: PROPOFOL 100 ML IV SCH (12:15)
--- NOTE | 2020-01-23 13:00 | NUR ---
Primary physician bedside. Requesting information as to why patient was not given prescribed Tocilizumab . RN spoke with pharmacist - per protocol, patient does not meet parameters for administration of the medication. The pharmacist has tried to call physician in response to the order, but has been unable to reach him. Pharmacy is faxing/bulletting protocol to the unit and RN will let adebayo know - additionally the lpn medical assistant has not approved of the medication.
--- NOTE | 2020-01-23 13:56 | NUR ---
Patients son called for update on status. 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 Family teaching regarding quarantine and tracing. The [place] and is around many of the residents as described by the family.
--- NOTE | 2020-01-23 14:20 | NUR ---
RN bedside, patient tolerating repositioning, oral care. In no signs of distress.
--- NOTE | 2020-01-23 16:00 | NUR ---
RN bedside patient tolerating repositioning well, including lying flat while in room. Oral care completed.
--- NOTE | 2020-01-23 17:30 | NUR ---
RN bedside for repositioning and oral care. Patient in no signs of distress, withdraws to pain, moves eyebrows when suctioning.
--- NOTE | 2020-01-23 17:49 | NUR ---
Dr. Edmond on unit, updated on status. New order for tube feeding at Nutrition recommendation.
--- NOTE | 2020-01-23 19:34 | NUR ---
Report given to Annalisa HOYT
--- NOTE | 2020-01-23 19:45 | NUR ---
Opening Shift Note: Patient is intubated/sedated. ET size 8.0/24 @ lip. Settings: AC rate 16, FiO2 55%, PEEP 5, vT 450. Neuro: 3 mm/brisk pupils; flaccid extremities; moves mouth and head with deep pain; positive cough/gag. Cardio: NSR 60s with slight ST elevation, MD aware; BPs 110s; pulses palpable. Resp: ET secretions thick/creamy small amount; scant oral secretions; anterior lung sounds clear/diminished in bases and lateral. GI: OGT glucerna started at 15 ml/hr with a goal of 65 ml. Vega inserted on 01/20/20 for strict I/O. Skin: blanchable redness to sacral area: optifoam in place. IV: right IJ TLC running propofol @ 10; Versed @ 4; Fentanyl @ 50 inserted on 01/20/20. Will continue to round/reposition/perform oral care prn.
[2020-01-24] VITALS (98 sets, daily range): BP systolic 88–139; BP diastolic 52–79
[2020-01-24] MEDS: PIPERACILLIN-TAZOB 3.375GM 100 ML IV SCH ×4 (00:38→18:00)
[2020-01-24] MEDS: InsuLIN REG 1unit/0.01ml Soln (100units/ml) SC SCH ×3 (00:38→14:57)
--- NOTE | 2020-01-24 03:00 | NUR ---
Patient bathe/linen change Patient given complete CHG bath. Skin integrity assessed for any changes; optifoam changed. Linens and gown changed. Patient repositioned for comfort.
[2020-01-24 04:16] LABS: Hemoglobin 14.8 g/dL (13.5-17.5); Mean Corpuscular Hemoglobin 26.9 pg (28.0-32.0); Mean Corpuscular Hgb Conc. 32.9 g/dL (32.0-36.0); Mean Corpuscular Volume 81.7 fL (80.0-100.0); Red Cell Distribution Width 15.4 % (11.8-14.3)
[2020-01-24 04:18] LABS: Platelet Count (auto) 139 10^3/uL (140-450); Red Blood Cells 5.51 10^6/uL (4.5-5.90); White Blood Cell 7.5 10^3/uL (4.4-10.8)
[2020-01-24 04:26] LABS: Band Neutrophils % (manual) 0; Basophils % (manual) 0 (0.0-2.0); Blast Cells 0; Eosinophils % (manual) 0 (0-7); Metamyelocytes % 0; Myelocytes % 0; Promyelocytes % 0; Reactive Lymphocytes 0
[2020-01-24 04:37] LABS: Calcium 7.9 mg/dL (8.5-10.1)
[2020-01-24 04:41] LABS: Bilirubin, Total 0.8 mg/dL (0.2-1.0); Total Protein 6.2 g/dL (6.4-8.2)
[2020-01-24 05:22] LABS: Lymphocytes % (manual) 1 (10.0-50.0); Monocytes % (manual) 2 (0-12)
[2020-01-24] MEDS: INSULIN LANTUS (GLARGINE) 1 /0.01ml (100units/ml) SC SCH (05:47)
[2020-01-24] MEDS: ACCU-CHEK COMFORT CURVE STRIP VI SCH ×3 (05:47→12:02)
[2020-01-24] MEDS: ALBUTEROL SULF 2.5 MG/0.5ML(0.5%) NEB SOLN NEB SCH ×3 (06:52→21:58)
--- NOTE | 2020-01-24 06:58 | NUR ---
Respiratory note: RECEIVED PATIENT ON V2 V200 VENT ORALLY INTUBATED WITH AN 8.0 ETT SECURED VIA CARLEE AT THE 24CM MARKING AT THE LIP, AND MECHANICALLY VENTILATED WITH THE CHARTED SETTINGS. SPO2 94%, LUNG SOUNDS DIM T/O, NO SECRETIONS WHEN SUCTIONED. SKIN IS WARM/DRY TO THE TOUCH AND IS INTACT NEAR CARLEE SITE. THERE IS AN OGT IN PLACE AND IS SECURED TO THE ETT. EDEMA NOTED THROUGHOUT UPPER EXTREMITIES AND HANDS. LEG SEQUENTIALS IN PLACE AND OPERATIONAL. AM CXR ASSESSED AND IT SHOWS ETT IN SATISFACTORY POSITION SITTING APPROX 4.8 CM ABOVE THE INGRIS; NO INDICATION TO ADJUST TUBE. PATIENT IS UNRESPONSIVE TO BOTH VERBAL/TACTILE STIMULI AND IS SEDATED ON VERSED, PROPOFOL, AND FENTANYL DRIPS. HE IS RESTING COMFORTABLY AND TOLERATING VENT WELL, NO CHANGES MADE. VENT PLUGGED INTO RED OUTLET AND ALL ALARMS ARE SET AND AUDIBLE. WILL CONTINUE TO ASSES PATIENT WELL VENTILATOR FUNCTION. MED-NEB RUN INLINE.
--- NOTE | 2020-01-24 07:10 | NUR ---
Received report from Annalisa HOYT. Patient remains mechanically ventilated with TV 450 PEEP 54 FIO2 55% AC 16. Patient saturation SPO2 94%. ETT tube secretions bernabe creamy, moderate. Oral secretions bernabe, creamy, small. Patient is in no signs of distress. Patient is sedated on Propofol 15 mcg, Versed 4 mcg, Fentanyl 50 mcg. Patient responds to stimulation, will turn head and open eyes on command when sedation is decreased. Patient moves all extremities. NSR HR 80's, pulses palpable WNL, no edema. Vega catheter to gravity, cameron urine. Active bowel sounds, tube feeding at 40 ml/hr with 5 ml residual. Patient in no signs of distress, will continue to monitor.
--- NOTE | 2020-01-24 09:00 | NUR ---
RN bedside, patient moving around, RN assessed airway, suctioned ETT and oral and repositioned patient then increased sedation.
--- NOTE | 2020-01-24 10:00 | NUR ---
RN bedside, patient is moving around in bed without environmental stimulation. Increased sedation.
--- NOTE | 2020-01-24 10:19 | NUR ---
Dr. Powell on unit. New orders to downgrade to Telemetry upon result of second COVID 19 swab collected at 1015. Oil Boiler consult for movement to [facility]. Addendum: 01/24/20 at 1203 by Jordan Isaacs RN WRONG PATIENT
[2020-01-24] MEDS: DexAMETHasone SOD PHOS 10MG/1ML VIAL INJ IV SCH (11:00)
[2020-01-24] MEDS: ZINC SULFATE 220mg CAP or TAB PO SCH (11:00)
[2020-01-24] MEDS: FAMOTIDINE 20 MG TAB PO SCH ×2 (11:00→22:00)
[2020-01-24] MEDS: CHOLECALCIFEROL (VITD3) 2,000 UNIT CAP PO SCH (11:01)
[2020-01-24] MEDS: hydrOXYchloroQUINE SULFATE 200 MG TAB PO SCH (11:01)
[2020-01-24] MEDS: ASCORBIC ACID 1,000 MG TAB PO SCH (11:01)
[2020-01-24] MEDS: MIDAZOLAM DRIP 50 mg/50mL 50 ML IV SCH (11:04)
[2020-01-24] MEDS: fentaNYL Drip 2500mCg/250mlNS 250 ML IV SCH (11:21)
--- NOTE | 2020-01-24 11:25 | NUR ---
Called Pharmacy for Fentanyl IV drip.
--- NOTE | 2020-01-24 12:00 | NUR ---
RN bedside, for cool bathing measures and PRN Acetaminophhen. Patient given cool bath and ice bags at groin and head for Temp of 101.5 F
--- NOTE | 2020-01-24 12:16 | NUR ---
PHARMACY received and signed for Fentanyl IV drip for patient.
--- NOTE | 2020-01-24 13:38 | NUR ---
Paging hospitalist to notify of Fever of 101.5, and hypotension.
[2020-01-24] MEDS ORDERED: SODIUM CHLORIDE 0.9% 500 ML IV ONE (14:00)
--- NOTE | 2020-01-24 14:02 | NUR ---
Dr. Trinidad returned call. Order for 0.9% NS 500ml bolus, draw lactic/blood cultures, and norephinephrine per protocol to maintain systolic BP greater than 90 /MAP greater or equal to 65.
--- NOTE | 2020-01-24 14:35 | NUR ---
Blood cultures drawn and lactic acid by RN central line. Patient receiving 500 ml bolus and cooling measures.
[2020-01-24 15:03] LABS: Lactic Acid w/Reflex 2.6 mmol/L (0.4-2.0)
--- NOTE | 2020-01-24 16:30 | NUR ---
Patient received 500 ml bolus, Levophed on standby if needed.
--- NOTE | 2020-01-24 20:00 | NUR ---
Opening Shift Note: Patient is intubated/sedated. ET size 8.0/24 @ lip. Settings: AC rate 16, FiO2 55%, PEEP 5, vT 450. Neuro: 3 mm/brisk pupils; flaccid extremities; moves mouth and head with deep pain; positive cough/ hypoactive gag. Cardio: NSR 60s with slight ST elevation, MD aware; BPs 100s-110s; pulses palpable. Resp: ET secretions none; oral secretions none; anterior lung sounds clear/diminished in bases and lateral. GI: OGT glucerna at 40 ml/hr with a goal of 65 ml; 5 ml residual; feedings increased to 45 ml/hr. Vega inserted on 01/20/20 for strict I/O. Skin: blanchable redness to sacral area: optifoam in place. IV: right IJ TLC running propofol @ 15; Versed @ 10; Fentanyl @ 100 inserted on 01/20/20. Will continue to round/reposition/perform oral care prn.
[2020-01-24] MEDS: SODIUM CHLORIDE 0.9% 1,000 ML IV SCH (20:30)
--- NOTE | 2020-01-24 20:35 | NUR ---
RN spoke with Yuli, the patients daughter in law , updated on status and change in condition with fever and elevated Lactic Acid, meaning patient is septic.
[2020-01-25] VITALS (96 sets, daily range): BP systolic 81–170; BP diastolic 17–83
[2020-01-25] MEDS: ACETAMINOPHEN 325 MG TAB PO PRN ×3 (00:30→21:30)
[2020-01-25] MEDS: MIDAZOLAM DRIP 50 mg/50mL 50 ML IV SCH ×4 (01:00→18:35)
[2020-01-25] MEDS: PROPOFOL 100 ML IV SCH ×2 (01:00→14:30)
[2020-01-25] MEDS: PIPERACILLIN-TAZOB 3.375GM 100 ML IV SCH ×4 (01:00→18:39)
[2020-01-25] MEDS: NOREPINEPHRINE 8 MG/250ML KIT 250 ML IV SCH ×2 (03:00→14:00)
--- NOTE | 2020-01-25 03:00 | NUR ---
Desaturation/low blood pressure: Patient started to sustain in high 80s for oxygen saturation on current vent settings. Patient ET suctioned, repositioned, and oral suctioned with no change in saturations. Patient started to present with stacking breaths over the vent and unable to pull adequate volumes. Propofol increased to help with ventilator synchrony. No change in oxygen saturations and in turn, patient also become hypotensive with SBPs in the 80s sustaining. Levophed started per order protocol. Oxygen was increased by RT to 100%.
[2020-01-25] MEDS: SODIUM CHLORIDE 0.9% 1,000 ML IV SCH ×3 (03:30→21:27)
[2020-01-25] MEDS: ACCU-CHEK COMFORT CURVE STRIP VI SCH ×4 (05:31→18:15)
[2020-01-25] MEDS: InsuLIN REG 1unit/0.01ml Soln (100units/ml) SC SCH ×4 (05:51→18:15)
[2020-01-25] MEDS: INSULIN LANTUS (GLARGINE) 1 /0.01ml (100units/ml) SC SCH (05:53)
[2020-01-25] MEDS: ALBUTEROL SULF 2.5 MG/0.5ML(0.5%) NEB SOLN NEB SCH ×3 (06:41→22:12)
--- NOTE | 2020-01-25 07:30 | NUR ---
REPORT REPORT RECEIVED FROM ARIA RNDEEPIKA. PT IN ISOLATION FOR + COVID AND VISUALIZED PT THROUGH THE GLASS DOOR. VSS AND NO DISTRESS NOTED. PT INTUBATED AND SEDATED. CONTINUE TO MONITOR.
--- NOTE | 2020-01-25 08:30 | NUR ---
ASSESSMENT PT RESTING IN BED WITH EYES CLOSED AND SEDATED. VENTILATOR SETTINGS OF : 8 FR ETT/ 24 AT THE LIP, AC 16, TV 450, 100% FIO2 AND PEEP OF 12. LUNGS CLEAR THROUGHOUT. O2 SAT OF 98%. TELE SR 72. PALPABLE PULSES TO ALL EXTREMITIES. ABD SOFT WITH HYPOACTIVE BOWEL SOUNDS. LAST BM WAS PRIOR TO ADMISSION. OGT WITH + PLACEMENT AND GLUCERNA CARB STEADY INFUSING AT 50 ML/HR WITH RESIDUAL OF 30 ML. NAZARIO CATHETER DRAINING CLEAR WEN URINE. TURNED FOR COMFORT TO HIS RIGHT SIDE. SACRAL OPTIFOAM IN PLACE AND SKIN CLEAR. BED IN LOW POSITION AND RAILS UP X4 FOR PT SAFETY. CONTINUE TO MONITOR.
--- NOTE | 2020-01-25 08:40 | NUR ---
PT TEACHING PT UNABLE TO BENEFIT FROM PT TEACHING AT THIS TIME HE IS INTUBATED AND SEDATED. Addendum: 01/25/20 at 0918 by Venita Whitaker RN Amended: Links added.
[2020-01-25] MEDS: fentaNYL Drip 2500mCg/250mlNS 250 ML IV SCH ×2 (10:35→11:21)
[2020-01-25] MEDS: ZINC SULFATE 220mg CAP or TAB PO SCH (10:36)
[2020-01-25] MEDS: CHOLECALCIFEROL (VITD3) 2,000 UNIT CAP PO SCH (10:36)
[2020-01-25] MEDS: hydrOXYchloroQUINE SULFATE 200 MG TAB PO SCH (10:36)
[2020-01-25] MEDS: ASCORBIC ACID 1,000 MG TAB PO SCH (10:36)
[2020-01-25] MEDS: FAMOTIDINE 20 MG TAB PO SCH ×2 (10:36→21:27)
[2020-01-25] MEDS: DexAMETHasone SOD PHOS 10MG/1ML VIAL INJ IV SCH (10:41)
--- NOTE | 2020-01-25 11:21 | NUR ---
Consult/Nutrition Followup Note Wt 64.8kg Pt is covid positive transferred to ICU. Pt is intubated and sedated per MD note with propofol running at 7.756 ml/hr which provides 205 kcal from lipids. Per MD order pt with a order of Glucerna 1.2 at 65 ml/hr. Pt provided 540 ml TF 01/24 so far per RN note Est Energy needs BW 65 [id number] kcals (25-30 kcal/kgBW), Est Protein needs: 65-78 gms/day (1.0-1.2 gm/kgBW). Will continue to monitor and reassess prn. Rec: En support with Glucerna @ 65 ml/hr per MD approval Labs: GLUC 280H, Ca 7.9L, Alb 2.0L BM: pt with no recorded BMs per RN note Skin: BS 16 mod risk, skin intact, full details in child care worker note PES; Altered nutrition related lab values r.t current chronic medical condition aeb elev BUN hyperglycemia, mod hypoalb Impaired swallowing r.t current medical condition aeb pt`s intubated sedated with order of NPO Comments: 1) consider EN support with Glucerna @ 65 ml/hr per MD approval at current rate of propofol 2) advanced diet as medically feasible 3) refer to CDE on DC 4) continue current plan of care Expected Outcomes/Goals: pt will have improved labs pt will get > 75% of needs F/u high 2-3 days
[2020-01-25] MEDS ORDERED: VANCOMYCIN PER PHARMACY 0 MG IV SCH (13:00)
--- NOTE | 2020-01-25 14:40 | NUR ---
SPOKE WITH DR CHAVEZ, BY PHONE, AND MADE HIM AWARE OF THE ATRIAL FIB/FLUTTER WHICH CONVERTED BACK INTO A SR/ST WITH PACS AT ABOUT 1431. HE ORDERED A 150MG AMIODARONE BOLUS TO BE GIVEN FOR ATRIAL FIB/FLUTTER SUSTAINED OVER 10 MINUTES. IF 10 MINUTES AFTER BOLUS IS GIVEN, THE PT HAS NOT CONVERTED BACK TO SR/ST , THEN START PT ON AMIODARONE DRIP PER PROTOCOL. Addendum: 01/25/20 at 1446 by Venita Whitaker RN ERROR WRONG PATIENT
--- NOTE | 2020-01-25 15:17 | NUR ---
assessment Patient is a 64 year old male who is on vent in ICU. I have left a message for patients bree Perez to return my call for assessment. waiting for call back now. Addendum: 01/25/20 at 1518 by Krissy LAZO Amended: Links added.
--- NOTE | 2020-01-25 16:30 | NUR ---
FAMILY SPOKE WITH PT'S DAUGHTER, MAHAMED, BY PHONE, AFTER VERIFYING THE PASSWORD. SHE WOULD LIKE TO SPEAK WITH THE MD. I CALLED AND SPOKE WITH DR ALMANZA AND HE STATED HE WILL CONTACT HER TOMORROW WHEN HE MAKES ROUNDS. I CALLED MAHAMED AND LET HER KNOW TO EXPECT A CALL FROM DR ALMANZA TOMORROW.
[2020-01-25] MEDS: VANCOMYCIN 1GM/250ML 250 ML IV SCH (16:37)
--- NOTE | 2020-01-25 19:30 | NUR ---
REPORT GIVEN AND CHECKED PT VIA GLASS DOOR.
--- NOTE | 2020-01-25 20:00 | NUR ---
Opening Shift Note: Patient is intubated/sedated. ET size 8.0/24 @ lip. Settings: AC rate 16, FiO2 90%, PEEP 5, vT 450. Neuro: 3 mm/sluggish pupils; flaccid extremities; moves mouth and head with deep pain; positive cough/ hypoactive gag. Cardio: NSR 60s-70s ; BPs 100s-120s; pulses palpable. Resp: ET secretions none; oral secretions none; anterior lung sounds clear/diminished in bases and lateral. GI: OGT glucerna at 50 ml/hr with a goal of 65 ml; 10 ml residual. Vega inserted on 01/20/20 for strict I/O. Skin: blanchable redness to sacral area: optifoam in place. IV: right IJ TLC running propofol @ 15; Versed @ 12; Fentanyl @ 100 inserted on 01/20/20. Will continue to round/reposition/perform oral care prn.
--- NOTE | 2020-01-25 20:45 | NUR ---
Ilya Perez called to receive update on plan of care. All questions and concerns addressed.
[2020-01-25] MEDS ORDERED: MEROPENEM 1GM IVPB 0 ML IV ONE (22:46)
[2020-01-26] VITALS (98 sets, daily range): BP systolic 96–151; BP diastolic 54–77
[2020-01-26] MEDS: VANCOMYCIN 1GM/250ML 250 ML IV SCH ×2 (04:00→15:00)
[2020-01-26] MEDS: InsuLIN REG 1unit/0.01ml Soln (100units/ml) SC SCH ×4 (06:30→17:43)
[2020-01-26] MEDS: PIPERACILLIN-TAZOB 3.375GM 100 ML IV SCH ×4 (06:30→17:43)
[2020-01-26] MEDS: ACCU-CHEK COMFORT CURVE STRIP VI SCH ×4 (06:30→17:43)
[2020-01-26] MEDS: INSULIN LANTUS (GLARGINE) 1 /0.01ml (100units/ml) SC SCH (06:30)
[2020-01-26 06:34] LABS: Basophils # (auto) 0 10 ^3/uL (0-0.2); Eosinophils # (auto) 0 10 ^3/uL (0-0.8); Lymphocytes # (auto) 0.1 10 ^3/uL (0.4-5.4); Monocytes # (auto) 0.2 10 ^3/uL (0-1.3); White Blood Cell 6.4 10^3/uL (4.4-10.8)
[2020-01-26 06:38] LABS: Basophils % (auto) 0.5 % (0.0-2.0); Hematocrit 39.7 % (41.0-53.0); Hemoglobin 13.3 g/dL (13.5-17.5); Lymphocytes % (auto) 1.8 % (10.0-50.0); Mean Corpuscular Hemoglobin 27.2 pg (28.0-32.0); Mean Corpuscular Hgb Conc. 33.4 g/dL (32.0-36.0); Mean Corpuscular Volume 81.4 fL (80.0-100.0); Monocytes % (auto) 3.6 % (0.0-12.0); Neutrophils % (auto) 94.1 % (37.0-80.0); Platelet Count (auto) 145 10^3/uL (140-450); Red Blood Cells 4.88 10^6/uL (4.5-5.90)
[2020-01-26] MEDS: ALBUTEROL SULF 2.5 MG/0.5ML(0.5%) NEB SOLN NEB SCH ×3 (06:50→22:12)
[2020-01-26 06:56] LABS: Albumin 1.5 g/dL (3.4-5.0); Calcium 7.7 mg/dL (8.5-10.1)
[2020-01-26 07:05] LABS: BUN/Creatinine Ratio 24.7; Bilirubin, Total 0.7 mg/dL (0.2-1.0); CRP High Sensitivity 17.8 mg/dL (< 0.3); Total Protein 5.7 g/dL (6.4-8.2)
[2020-01-26 07:15] LABS: Potassium 5.1 mmol/L (3.5-5.1)
--- NOTE | 2020-01-26 08:00 | NUR ---
OPENING Report received from Annalisa MILLER RN. Care initiated and initial assessment complete.
[2020-01-26] MEDS: SODIUM CHLORIDE 0.9% 1,000 ML IV SCH ×2 (08:30→17:43)
[2020-01-26] MEDS: ZINC SULFATE 220mg CAP or TAB PO SCH (10:25)
[2020-01-26] MEDS: hydrOXYchloroQUINE SULFATE 200 MG TAB PO SCH (10:25)
[2020-01-26] MEDS: ASCORBIC ACID 1,000 MG TAB PO SCH (10:25)
[2020-01-26] MEDS: CHOLECALCIFEROL (VITD3) 2,000 UNIT CAP PO SCH (10:25)
[2020-01-26] MEDS: DexAMETHasone SOD PHOS 10MG/1ML VIAL INJ IV SCH (10:25)
[2020-01-26] MEDS: PROPOFOL 100 ML IV SCH ×2 (10:25→18:11)
[2020-01-26] MEDS: FAMOTIDINE 20 MG TAB PO SCH ×2 (10:25→22:23)
[2020-01-26] MEDS: MIDAZOLAM DRIP 50 mg/50mL 50 ML IV SCH ×2 (10:26→18:11)
[2020-01-26] MEDS: fentaNYL Drip 2500mCg/250mlNS 250 ML IV SCH (13:53)
[2020-01-26] MEDS: NOREPINEPHRINE 8 MG/250ML KIT 250 ML IV SCH (13:57)
--- NOTE | 2020-01-26 16:00 | NUR ---
BEDSIDE Dr. Octavio mittal. called patients family to update them on patients condition. New orders received.
--- NOTE | 2020-01-26 19:35 | NUR ---
STARTED WARMING MEASURES TEMP RECTAL 95.5 TURNED OFF COOLING BLANKET TURNED ON WARMING SETTINGS PLACED WARM BLANKET OVER PATIENT INCREASED ROOM TEMPERATURE VS: HR 49 BP 133/76
--- NOTE | 2020-01-26 20:00 | NUR ---
PAUSED FEEDING residual 210 cc feeding was running at 50 cc/hr
--- NOTE | 2020-01-26 21:20 | NUR ---
SPOKE TO MAHAMED (DAUGHTER) UPDATED ON PATIENTS STATUS AND POC, ALL QUESTIONS AND CONCERNS ADDRESSED.
[2020-01-27] VITALS (101 sets, daily range): BP systolic 101–158; BP diastolic 53–81
--- NOTE | 2020-01-27 00:02 | NUR ---
STARTED FEEDING RESIDUAL 2CC STARTING RATE 30
[2020-01-27] MEDS: PIPERACILLIN-TAZOB 3.375GM 100 ML IV SCH ×2 (00:18→06:29)
[2020-01-27] MEDS: ACCU-CHEK COMFORT CURVE STRIP VI SCH ×4 (00:18→17:57)
[2020-01-27] MEDS: PROPOFOL 100 ML IV SCH (00:19)
[2020-01-27] MEDS: MIDAZOLAM DRIP 50 mg/50mL 50 ML IV SCH ×2 (00:19→04:52)
[2020-01-27] MEDS: InsuLIN REG 1unit/0.01ml Soln (100units/ml) SC SCH ×4 (00:20→17:57)
--- NOTE | 2020-01-27 03:03 | NUR ---
INCREASED FEEDING RATE RESIDUAL 30 CC INCREASED FROM 30 CC TO 45 CC/HR
[2020-01-27] MEDS: VANCOMYCIN 1GM/250ML 250 ML IV SCH (03:06)
[2020-01-27 03:42] LABS: Basophils # (auto) 0 10 ^3/uL (0-0.2); Eosinophils # (auto) 0 10 ^3/uL (0-0.8); Lymphocytes # (auto) 0.1 10 ^3/uL (0.4-5.4); Monocytes # (auto) 0.3 10 ^3/uL (0-1.3)
[2020-01-27 03:45] LABS: Basophils % (auto) 0.2 % (0.0-2.0); Hematocrit 40.4 % (41.0-53.0); Hemoglobin 13.3 g/dL (13.5-17.5); Lymphocytes % (auto) 1.2 % (10.0-50.0); Mean Corpuscular Hemoglobin 26.8 pg (28.0-32.0); Mean Corpuscular Hgb Conc. 32.9 g/dL (32.0-36.0); Mean Corpuscular Volume 81.4 fL (80.0-100.0); Monocytes % (auto) 5.5 % (0.0-12.0); Neutrophils # (auto) 5.7 10 ^3/uL (1.6-8.6); Neutrophils % (auto) 93.1 % (37.0-80.0); Nucleated Red Blood Cells % 0.1 %; Platelet Count (auto) 153 10^3/uL (140-450); Red Blood Cells 4.96 10^6/uL (4.5-5.90); Red Cell Distribution Width 15.4 % (11.8-14.3); White Blood Cell 6.1 10^3/uL (4.4-10.8)
[2020-01-27 04:05] LABS: Albumin 1.6 g/dL (3.4-5.0); Calcium 8.1 mg/dL (8.5-10.1); Potassium 4.5 mmol/L (3.5-5.1)
[2020-01-27 04:14] LABS: BUN/Creatinine Ratio 29.4; Bilirubin, Total 0.5 mg/dL (0.2-1.0); CRP High Sensitivity 11.4 mg/dL (< 0.3); Total Protein 5.6 g/dL (6.4-8.2)
--- NOTE | 2020-01-27 05:00 | NUR ---
DECREASED FEEDING RATE RESIDUAL 65 CC DECREASED RATE FROM 45 TO 40 CC/HR.
[2020-01-27] MEDS: INSULIN LANTUS (GLARGINE) 1 /0.01ml (100units/ml) SC SCH (06:55)
[2020-01-27] MEDS: ALBUTEROL SULF 2.5 MG/0.5ML(0.5%) NEB SOLN NEB SCH ×3 (06:56→22:10)
[2020-01-27] MEDS: ZINC SULFATE 220mg CAP or TAB PO SCH (09:26)
[2020-01-27] MEDS: CHOLECALCIFEROL (VITD3) 2,000 UNIT CAP PO SCH (09:26)
[2020-01-27] MEDS: DexAMETHasone SOD PHOS 10MG/1ML VIAL INJ IV SCH (09:26)
[2020-01-27] MEDS: FAMOTIDINE 20 MG TAB PO SCH ×2 (09:26→21:46)
[2020-01-27] MEDS: ASCORBIC ACID 1,000 MG TAB PO SCH ×2 (09:26→21:46)
[2020-01-27] MEDS ORDERED: VANCOMYCIN 1GM/250ML 250 ML IV SCH (11:00)
[2020-01-27] MEDS: fentaNYL Drip 2500mCg/250mlNS 250 ML IV SCH (11:20)
--- NOTE | 2020-01-27 11:24 | NUR ---
Consult/Nutrition Followup Note Wt 64.8kg, pt wt up 15kg to 79.5 kg per new wt, will continue to monitor wt Pt is covid positive transferred to ICU. Pt is intubated and sedated per MD note with propofol running at 7.756 ml/hr which provides 205 kcal from lipids. Per MD order pt with a order of Glucerna 1.2 at 65 ml/hr. Pt TF was running at 45 ml/hr, per RN note pt with high residuals, TF turned down to 40 ml/hr. Pt provided 421 ml TF 01/26 so far per RN note Est Energy needs BW 65 [id number] kcals (25-30 kcal/kgBW), Est Protein needs: 65-78 gms/day (1.0-1.2 gm/kgBW). Will continue to monitor and reassess prn. Rec: En support with Glucerna @ 65 ml/hr per MD approval Labs: BUN 20H, Creat 0.68L, GLUC 304H BM: pt with no recorded BMs per RN note Skin: BS 10 low risk, skin intact, full details in acute care occupational therapist note PES; Altered nutrition related lab values r.t current chronic medical condition aeb elev BUN hyperglycemia, mod hypoalb Impaired swallowing r.t current medical condition aeb pt`s intubated sedated with order of NPO Comments: 1) consider EN support with Glucerna @ 65 ml/hr per MD approval at current rate of propofol 2) advanced diet as medically feasible 3) refer to CDE on DC 4) continue current plan of care Expected Outcomes/Goals: pt will have improved labs pt will get > 75% of needs F/u high 2-3 days
--- NOTE | 2020-01-27 11:40 | NUR ---
ROUNDING Dr. Eleuterio Lugo rounding. New orders received and verified.
[2020-01-27] MEDS: amLODIPine BESYLATE 5 MG TAB PO SCH (11:45)
--- NOTE | 2020-01-27 11:59 | NUR ---
UPDATED FAMILY Family of Bobby updated.
--- NOTE | 2020-01-27 12:30 | NUR ---
ROUNDING Dr. Fatima rounding. Patient excluded from HIT.
--- NOTE | 2020-01-27 15:21 | NUR ---
assessment Patient is a 64 year old male who is on a vent in ICU. Per patients daughter Courtney prior to admission patient lived home with his and family and was independent. Patient is Covid positive. Patient was just discharged from the hospital with oxygen. Patient was re-admitted for increased shortness of breath per Courtney. Patients PCP is Dr Lizarraga. Patient is on service with [facility]. Patient will return home on discharge with family per Courtney. I informed Courtney I will continue to monitor and follow up as appropriate. Courtney verbalized understanding. Addendum: 01/27/20 at 1525 by Krissy LAZO Amended: Links added.
--- NOTE | 2020-01-27 19:30 | NUR ---
Opening Shift Note: Patient is intubated/sedated. ET size 8.0/24 @ lip. Settings: AC rate 16, FiO2 55%, PEEP 5, vT 450. Neuro: 3 mm/sluggish pupils; flaccid extremities; moves mouth and head with deep pain; positive cough/ hypoactive gag. Cardio: SB 50s- NSR 60s ; BPs 100s-120s; pulses palpable. Resp: ET secretions none; oral secretions none; anterior lung sounds clear/diminished in bases and lateral. GI: OGT glucerna at 40 ml/hr with a goal of 65 ml; 50 ml residual; feedings held at this time. Vega inserted on 01/20/20 for strict I/O. Skin: blanchable redness to sacral area: optifoam in place. IV: right IJ TLC running propofol @ 25; Fentanyl @ 200 inserted on 01/20/20. Will continue to round/reposition/perform oral care prn.
--- NOTE | 2020-01-27 20:30 | NUR ---
Consents for convalescent plasma/CTA received over the phone with LAI Winchester from next of kin: Son: Chris [phone]
--- NOTE | 2020-01-27 22:14 | NUR ---
Per blood bank, convalescent plasma has been ordered but has not arrived yet. There is no estimated time of arrival. Will place consents in the front of the hard chart.
[2020-01-28] VITALS (98 sets, daily range): BP systolic 86–174; BP diastolic 47–91
[2020-01-28] MEDS: InsuLIN REG 1unit/0.01ml Soln (100units/ml) SC SCH ×4 (00:05→18:17)
[2020-01-28] MEDS: ACCU-CHEK COMFORT CURVE STRIP VI SCH ×4 (00:05→18:16)
[2020-01-28] MEDS: fentaNYL Drip 2500mCg/250mlNS 250 ML IV SCH (01:10)
[2020-01-28] MEDS: PROPOFOL 100 ML IV SCH (01:57)
[2020-01-28] MEDS: INSULIN LANTUS (GLARGINE) 1 /0.01ml (100units/ml) SC SCH (05:01)
[2020-01-28 05:24] LABS: Basophils # (auto) 0 10 ^3/uL (0-0.2); Basophils % (auto) 0.1 % (0.0-2.0); Eosinophils # (auto) 0 10 ^3/uL (0-0.8); Eosinophils % (auto) 0.1 % (0.0-7.0); Hematocrit 41.4 % (41.0-53.0); Hemoglobin 13.9 g/dL (13.5-17.5); Lymphocytes # (auto) 0.3 10 ^3/uL (0.4-5.4); Lymphocytes % (auto) 5.5 % (10.0-50.0); Mean Corpuscular Hemoglobin 27.3 pg (28.0-32.0); Mean Corpuscular Hgb Conc. 33.7 g/dL (32.0-36.0); Mean Corpuscular Volume 80.9 fL (80.0-100.0); Monocytes # (auto) 0.4 10 ^3/uL (0-1.3); Monocytes % (auto) 7.6 % (0.0-12.0); Neutrophils # (auto) 4.5 10 ^3/uL (1.6-8.6); Neutrophils % (auto) 86.7 % (37.0-80.0); Nucleated Red Blood Cells % 0.1 %; Platelet Count (auto) 161 10^3/uL (140-450); Red Blood Cells 5.11 10^6/uL (4.5-5.90); Red Cell Distribution Width 15.4 % (11.8-14.3); White Blood Cell 5.2 10^3/uL (4.4-10.8)
[2020-01-28 05:39] LABS: Potassium 4.4 mmol/L (3.5-5.1)
[2020-01-28 05:48] LABS: Albumin 1.6 g/dL (3.4-5.0); BUN/Creatinine Ratio 39.6; Bilirubin, Total 0.4 mg/dL (0.2-1.0); Total Protein 5.5 g/dL (6.4-8.2)
[2020-01-28] MEDS: ALBUTEROL SULF 2.5 MG/0.5ML(0.5%) NEB SOLN NEB SCH ×3 (06:47→23:07)
[2020-01-28] MEDS: THIAMINE 100mg/ml INJ (200mg/2ml VIAL) IV SCH (10:00)
[2020-01-28] MEDS: CHOLECALCIFEROL (VITD3) 2,000 UNIT CAP PO SCH (10:00)
[2020-01-28] MEDS: FAMOTIDINE 20 MG TAB PO SCH ×2 (10:00→19:28)
[2020-01-28] MEDS: ZINC SULFATE 220mg CAP or TAB PO SCH (10:00)
[2020-01-28] MEDS: ASCORBIC ACID 1,000 MG TAB PO SCH ×2 (10:00→19:28)
[2020-01-28] MEDS: amLODIPine BESYLATE 5 MG TAB PO SCH (10:00)
[2020-01-28] MEDS: ENOXAPARIN SOD 40 MG/0.4 ML SYRINGE SC SCH (10:00)
[2020-01-28] MEDS: DexAMETHasone SOD PHOS 10MG/1ML VIAL INJ IV SCH (10:00)
[2020-01-28] MEDS: MIDAZOLAM DRIP 50 mg/50mL 50 ML IV SCH (11:21)
--- NOTE | 2020-01-28 14:00 | NUR ---
TITRATED FIO2 TO 50%, PT TOLERATING CHANGES SPO2 93%.
[2020-01-29] VITALS (83 sets, daily range): BP systolic 79–200; BP diastolic 45–101
[2020-01-29] MEDS: ACCU-CHEK COMFORT CURVE STRIP VI SCH ×4 (00:13→17:36)
[2020-01-29] MEDS: InsuLIN REG 1unit/0.01ml Soln (100units/ml) SC SCH ×4 (00:15→17:41)
[2020-01-29] MEDS: fentaNYL Drip 2500mCg/250mlNS 250 ML IV SCH ×2 (00:30→14:19)
[2020-01-29] MEDS: PROPOFOL 100 ML IV SCH ×4 (00:31→16:41)
[2020-01-29 04:37] LABS: Basophils # (auto) 0 10 ^3/uL (0-0.2); Eosinophils # (auto) 0 10 ^3/uL (0-0.8); Eosinophils % (auto) 0.1 % (0.0-7.0); Hemoglobin 14.9 g/dL (13.5-17.5); Lymphocytes # (auto) 0.5 10 ^3/uL (0.4-5.4); Monocytes # (auto) 0.7 10 ^3/uL (0-1.3); Neutrophils % (auto) 84.4 % (37.0-80.0); Nucleated Red Blood Cells % 0.3 %
[2020-01-29 04:40] LABS: Basophils % (auto) 0.2 % (0.0-2.0); Hematocrit 44.8 % (41.0-53.0); Lymphocytes % (auto) 6.1 % (10.0-50.0); Mean Corpuscular Hemoglobin 27.3 pg (28.0-32.0); Mean Corpuscular Hgb Conc. 33.3 g/dL (32.0-36.0); Mean Corpuscular Volume 81.9 fL (80.0-100.0); Monocytes % (auto) 9.2 % (0.0-12.0); Neutrophils # (auto) 6.4 10 ^3/uL (1.6-8.6); Platelet Count (auto) 183 10^3/uL (140-450); Red Blood Cells 5.47 10^6/uL (4.5-5.90); Red Cell Distribution Width 15.4 % (11.8-14.3); White Blood Cell 7.5 10^3/uL (4.4-10.8)
[2020-01-29] MEDS: MIDAZOLAM DRIP 50 mg/50mL 50 ML IV SCH (04:46)
[2020-01-29 04:55] LABS: Potassium 3.5 mmol/L (3.5-5.1)
[2020-01-29 05:09] LABS: BUN/Creatinine Ratio 30.8; Bilirubin, Total 0.5 mg/dL (0.2-1.0); CRP High Sensitivity 3.57 mg/dL (< 0.3); Calcium 8.4 mg/dL (8.5-10.1)
[2020-01-29] MEDS: INSULIN LANTUS (GLARGINE) 1 /0.01ml (100units/ml) SC SCH (05:21)
[2020-01-29] MEDS: ALBUTEROL SULF 2.5 MG/0.5ML(0.5%) NEB SOLN NEB SCH ×3 (06:52→22:20)
--- NOTE | 2020-01-29 07:15 | NUR ---
START OF SHIFT RECEIVED PATIENT RELAXED AND ON VENTILATOR SUPPORT WITH SEDATION OF PROPOFOL AT 50MCG/KG AND FENTANYL AT 200MCG/HR TO KEEP PATIENT FROM BUCKING THE VENT, MODERATELY SEDATED. ORAL GASTRIC TUBE IN PLACE WITH TUBE FEEDING RESIDUAL OF 150, FEEDING HELD FOR 1 HOUR AND WILL RECHECK RESIDUAL, ABDOMEN ROUND AND SOFT WITH HYPOACTIVE BOWEL SOUND, NO BM. NAZARIO IN PLACE AND DRAINING ADEQUATE URINE FOR THE HOUR. ORAL CARE WITH ORAL AND ET SUCTIONING SMALL AMOUNT SECRETION. SCD IN PLACE. CENTRAL LINE AT RIGHT SIDE OF NECK INTACT AND PATENT. TOTAL ISOLATION PROTOCOL FOR COVID PATIENT.
[2020-01-29] MEDS: ASCORBIC ACID 1,000 MG TAB PO SCH ×2 (10:18→22:00)
[2020-01-29] MEDS: CHOLECALCIFEROL (VITD3) 2,000 UNIT CAP PO SCH (10:18)
[2020-01-29] MEDS: ZINC SULFATE 220mg CAP or TAB PO SCH (10:18)
[2020-01-29] MEDS: FAMOTIDINE 20 MG TAB PO SCH ×2 (10:18→22:00)
[2020-01-29] MEDS: DexAMETHasone SOD PHOS 10MG/1ML VIAL INJ IV SCH (10:19)
[2020-01-29] MEDS: THIAMINE 100mg/ml INJ (200mg/2ml VIAL) IV SCH (10:19)
[2020-01-29] MEDS: ENOXAPARIN SOD 40 MG/0.4 ML SYRINGE SC SCH (10:20)
[2020-01-29] MEDS: POLYETHYLENE GLYCOL 17 GM PWDR PO PRN (12:19)
--- NOTE | 2020-01-29 13:29 | NUR ---
Nutrition Followup Notes Wt 78.90kg Pt is covid positive transferred to ICU. Pt is intubated and sedated per MD note with propofol running at 20.684 ml/hr providing 546 kcal from lipids. Per MD order pt with a order of Glucerna 1.2 at 65 ml/hr goal rate. Pt TF was running at 20 ml/hr, per RN d/t pt with high residuals of 150 ml. Will continue to monitor PO status, skin status, pertinent labs and weight trends. Will f/u in 2-3 days. Est Energy needs BW 65 [id number] kcals (25-30 kcal/kgBW), Est Protein needs: 65-78 gms/day (1.0-1.2 gm/kgBW). Will continue to monitor and reassess prn. Rec: EN support with Glucerna @ 65 ml/hr goal rate per MD approval Labs: GLUC 169 H, Ca 8.4 L, Alb 2.0 L BM: Pt with no recorded BMs, last BM unknown per RN note Skin: BS 10 high risk, skin intact, full details in hospice home care coordinator note PES; Altered nutrition related lab values r.t current chronic medical condition aeb elev BUN hyperglycemia, mod hypoalb Impaired swallowing r.t current medical condition aeb pt`s intubated sedated with order of NPO Comments: 1) consider EN support with Glucerna @ 65 ml/hr per MD approval at current rate of propofol 2) advanced diet as medically feasible 3) refer to CDE on DC 4) continue current plan of care
--- NOTE | 2020-01-29 15:30 | NUR ---
RN COMMUNICATION PER BLOOD BANK, PATIENT STILL WAITING FOR CONVALESCENT PLASMA ACCORDING TO HIS BLOOD TYPE OF B+, AVAILABLE IN THE BLOOD BANK IS O. BLOOD BANK STAFF WILL CALL NURSE WHEN PLASMA AVAILABLE.
--- NOTE | 2020-01-29 17:45 | NUR ---
SHIFT SUMMARY REMAINS INTUBATED AND ON VENTILATOR SUPPORT, FIO2 DOWN TO 45% AND DR KAPADIA AWARE, PATIENT TOLERATING VENT SETTINGS, REMAINS ON PROPOFOL, FENTANYL AND VERSED DRIP TO KEEP CALM.
--- NOTE | 2020-01-29 18:10 | NUR ---
WOUND CARE NOTE: Wound care in to see patient for skin integrity monitoring. Patient continue resting on air bed in ICU Rm. 105. Patient is intubated, sedated and mechanically ventilated. Patient appears to be in no pain using Daugherty Purcell Faces pain Scale. His Landry score is 10. Skin assessment done with the assistance of patient's nurse, LAI Gupta. Patient's L buttock noted with thin scabbed abrasion, surrounding skin is pink and blanchable, clean and dry. Mariah care given,applied Z Guard cream and covered with Opti foam sacral dressing. Patient's L heel noted with 2.5x1.5cm non-blanchable redness (Stage 1 pressure injury), advised LAI Gupta to apply Foam boots to patient's BLE. Patient's heels are offloaded on pillows at this time. Photographs of mentioned skin issue are taken for reference. Repositioned patient for comfort facing his Lt. side, redistributed pressure points with pillows. Patient tolerated well. LAI Gupta at bedside. RECOMMENDATION: [place] foam boots to BLE per MD order, Continuation of all other wound care orders prescribed by MD, continue with skin/wound plan of care, continue monitoring by wound care while patient is hospitalized. Addendum: 01/29/20 at 1856 by Chantelle Yap RN Amended: Links added.
--- NOTE | 2020-01-29 19:51 | NUR ---
DR CABA CALLED UNIT DR. Aileen CABA CALLED UNIT FOR UPDATE ON PT CONDITION. UPDATE PROVIDED. MD FURTHER INQUIRING REGARDING ACTEMRA AND REMDESIVIR ORDERING. PER MD COMMUNICATION ORDER PLACED IN MEDICAL RECORD. UPDATED MD REGARDING ORDERING PROCESS THROUGH DR. WILSON OR DR. BLAND.
[2020-01-30] VITALS (86 sets, daily range): BP systolic 82–196; BP diastolic 42–97
[2020-01-30] MEDS: InsuLIN REG 1unit/0.01ml Soln (100units/ml) SC SCH ×5 (00:22→22:30)
[2020-01-30] MEDS: ACCU-CHEK COMFORT CURVE STRIP VI SCH ×5 (00:24→22:29)
[2020-01-30 06:00] LABS: Basophils # (auto) 0 10 ^3/uL (0-0.2); Basophils % (auto) 0.3 % (0.0-2.0); Eosinophils # (auto) 0 10 ^3/uL (0-0.8); Eosinophils % (auto) 0.4 % (0.0-7.0); Hematocrit 43.7 % (41.0-53.0); Hemoglobin 14.9 g/dL (13.5-17.5); Lymphocytes # (auto) 0.6 10 ^3/uL (0.4-5.4); Lymphocytes % (auto) 8.7 % (10.0-50.0); Mean Corpuscular Hemoglobin 27.2 pg (28.0-32.0); Mean Corpuscular Hgb Conc. 34.1 g/dL (32.0-36.0); Mean Corpuscular Volume 79.9 fL (80.0-100.0); Monocytes # (auto) 0.5 10 ^3/uL (0-1.3); Monocytes % (auto) 8.3 % (0.0-12.0); Neutrophils # (auto) 5.3 10 ^3/uL (1.6-8.6); Neutrophils % (auto) 82.3 % (37.0-80.0); Nucleated Red Blood Cells % 0.1 %; Platelet Count (auto) 172 10^3/uL (140-450); Red Blood Cells 5.47 10^6/uL (4.5-5.90); Red Cell Distribution Width 15.5 % (11.8-14.3); White Blood Cell 6.4 10^3/uL (4.4-10.8)
[2020-01-30] MEDS: ALBUTEROL SULF 2.5 MG/0.5ML(0.5%) NEB SOLN NEB SCH ×3 (06:24→22:25)
[2020-01-30] MEDS: INSULIN LANTUS (GLARGINE) 1 /0.01ml (100units/ml) SC SCH (06:25)
[2020-01-30 06:31] LABS: Potassium 3.4 mmol/L (3.5-5.1)
[2020-01-30 06:44] LABS: BUN/Creatinine Ratio 34.7; Bilirubin, Total 0.9 mg/dL (0.2-1.0); Calcium 8.2 mg/dL (8.5-10.1); Total Protein 6.1 g/dL (6.4-8.2)
--- NOTE | 2020-01-30 07:00 | NUR ---
START OF SHIFT RECEIVED PATIENT ORALLY INTUBATED AND ON VENTILATOR SUPPORT, KEPT SEDATED ON PROPOFOL AT 40MCG/KG, VERSED AT 5MG/HR AND FENTANYL AT200 MCG. PATIENT TOTALLY RELAXED AND NOT REACHING FOR THE ET TUBE, NOTED ORAL GASTRIC TUBE CURRENTLY OFF FEEDING DUE TO RESIDUAL ABOVE 100, MEDICATIONS GIVEN, STILL NO BM BUT ABDOMEN SOFT AND HAS BOWEL SOUNDS, NAZARIO INTACT AND DRAINING WELL.
[2020-01-30] MEDS: ASCORBIC ACID 1,000 MG TAB PO SCH ×2 (08:37→21:55)
[2020-01-30] MEDS: FAMOTIDINE 20 MG TAB PO SCH ×2 (08:37→21:55)
[2020-01-30] MEDS: ENOXAPARIN SOD 40 MG/0.4 ML SYRINGE SC SCH (08:37)
[2020-01-30] MEDS: ZINC SULFATE 220mg CAP or TAB PO SCH (08:37)
[2020-01-30] MEDS: DexAMETHasone SOD PHOS 10MG/1ML VIAL INJ IV SCH (08:37)
[2020-01-30] MEDS: POLYETHYLENE GLYCOL 17 GM PWDR PO PRN (08:38)
[2020-01-30] MEDS: CHOLECALCIFEROL (VITD3) 2,000 UNIT CAP PO SCH (08:38)
[2020-01-30] MEDS: THIAMINE 100mg/ml INJ (200mg/2ml VIAL) IV SCH (08:38)
[2020-01-30] MEDS: PROPOFOL 100 ML IV SCH ×3 (10:22→23:50)
[2020-01-30] MEDS: MIDAZOLAM DRIP 50 mg/50mL 50 ML IV SCH (11:21)
[2020-01-30] MEDS ORDERED: fentaNYL Drip 2500mCg/250mlNS 250 ML IV ONE (13:36)
--- NOTE | 2020-01-30 14:00 | NUR ---
Respiratory note: TITRATED FIO2 TO 45%, SPO2 95%.BS CLEAR AND DIMINISHED. RN AT BEDSIDE TURNING PT. MED NEB TX GIVEN INLINE,VIA AEROGEN, TOLERATED WELL. ALARMS VERIFIED AND AUDIBLE. NO VENT CHANGES ORDERED AT THIS TIME. WILL CONTINUE TO MONITOR.
--- NOTE | 2020-01-30 18:00 | NUR ---
SHIFT SUMMARY PATIENT REMAINS CALM ON VENTILATOR SUPPORT WITH SEDATION OF PROPOFOL AT 40 MCG/KG AND VERSED AT 4MG AND FENTANYL AT 200MCG, LOW RESIDUAL AND TUBE FEEDING RESUMED AT 10ML/HOUR, NO BM THIS SHIFT.
--- NOTE | 2020-01-30 19:00 | NUR ---
RECD REPORT FROM DAY RN FULLY SEDATED AND VENTILATED, VSS,AFEBRILE,TUBE FEEDING ON FLOW.FC IN PLACE GOOD OUTPUT. SECRETIONS MINIMAL CLEAR.
--- NOTE | 2020-01-30 23:28 | NUR ---
2100 Sedation vacation not performed patients condition contraindicated at this time
[2020-01-31] VITALS (98 sets, daily range): BP systolic 74–191; BP diastolic 41–96
[2020-01-31] MEDS: MIDAZOLAM DRIP 50 mg/50mL 50 ML IV SCH ×2 (04:25→23:22)
[2020-01-31] MEDS: fentaNYL Drip 2500mCg/250mlNS 250 ML IV SCH ×2 (04:26→20:55)
[2020-01-31] MEDS: InsuLIN REG 1unit/0.01ml Soln (100units/ml) SC SCH ×4 (05:56→23:23)
[2020-01-31] MEDS: ACCU-CHEK COMFORT CURVE STRIP VI SCH ×4 (05:57→23:25)
--- NOTE | 2020-01-31 06:07 | NUR ---
STABLE OVERNIGHT FULLY SEDATED RASS-3 ,CURRENTLY ON FENTANYL AT 150MCG,VERSED AT 4MG AND PROPOFOL AT 40 MCG/KG/MIN.VSS, AFEBRILE,SECRETIONS MINIMAL CLEAR, GOOD OURPUT WEN YELLOW TOLERATED TUBE FEEDING AT 20ML/HR. NO BM TODAY.GOOD BOWEL SOUND, LUNGS DIMINISHED. BSL WNL.
[2020-01-31] MEDS: INSULIN LANTUS (GLARGINE) 1 /0.01ml (100units/ml) SC SCH (06:31)
[2020-01-31] MEDS: ALBUTEROL SULF 2.5 MG/0.5ML(0.5%) NEB SOLN NEB SCH ×3 (06:57→22:26)
--- NOTE | 2020-01-31 07:10 | NUR ---
0700 REPORT GIVEN TO LAI MAYFIELD FOR CONTINUITY OF CARE
--- NOTE | 2020-01-31 09:01 | NUR ---
PT UNSTABLE FOR TRANSPORT TO CT. WILL DC ORDER AND REORDER WHEN PT IS STABLE PER PROTOCOL. CHAPARRO HOYT AWARE
[2020-01-31] MEDS: CHOLECALCIFEROL (VITD3) 2,000 UNIT CAP PO SCH (10:00)
[2020-01-31] MEDS: ZINC SULFATE 220mg CAP or TAB PO SCH (10:00)
[2020-01-31] MEDS: ASCORBIC ACID 1,000 MG TAB PO SCH ×2 (10:00→22:10)
[2020-01-31] MEDS: FAMOTIDINE 20 MG TAB PO SCH ×2 (10:00→22:10)
[2020-01-31] MEDS: THIAMINE 100mg/ml INJ (200mg/2ml VIAL) IV SCH (10:00)
[2020-01-31] MEDS: ENOXAPARIN SOD 40 MG/0.4 ML SYRINGE SC SCH (10:00)
--- NOTE | 2020-01-31 12:42 | NUR ---
Nutrition Followup Notes Wt 78.20 kg Pt is covid positive. Pt is intubated and sedated per MD note with propofol running at 2.585 ml/hr providing 68 kcal from lipids. Pt with En nutrition support Glucerna 1.2 at 20 ml/hr d/t pt previous residuals. Will continue to monitor PO status, skin status, pertinent labs and weight trends. Will f/u in 2-3 days. Est Energy needs BW 65 [id number] kcals (25-30 kcal/kgBW), Est Protein needs: 65-78 gms/day (1.0-1.2 gm/kgBW). Will continue to monitor and reassess prn. Rec: EN support with Glucerna @ 65 ml/hr goal rate per MD approval Labs: GLUC 154 H, Alb 2.0 L BM: Pt with no recorded BMs, last BM unknown per RN note Skin: BS 10 high risk, skin intact, full details in hospice home care coordinator note PES; Altered nutrition related lab values r.t current chronic medical condition aeb elev BUN hyperglycemia, mod hypoalb Impaired swallowing r.t current medical condition aeb pt`s intubated sedated with order of NPO Comments: 1) consider EN support with Glucerna @ 65 ml/hr per MD approval at current rate of propofol 2) advanced diet as medically feasible 3) refer to CDE on DC 4) continue current plan of care
[2020-01-31] MEDS: NOREPINEPHRINE 8 MG/250ML KIT 250 ML IV SCH (12:52)
[2020-01-31] MEDS: ACETAMINOPHEN 325 MG TAB PO PRN (15:52)
--- NOTE | 2020-01-31 16:13 | NUR ---
VENT CHANGES MADE PER DR CABA ORDERS. PT NOW ON AC RR 16, VT 450, PEEP 10. 45% FIO2.
--- NOTE | 2020-01-31 21:01 | NUR ---
2100 No sedation vacation at this time no weaning trial as plan at the moment continue current sedation see flow sheet spread
[2020-01-31] MEDS: PROPOFOL 100 ML IV SCH (23:21)
[2020-02-01] VITALS (95 sets, daily range): BP systolic 89–139; BP diastolic 46–78
[2020-02-01] MEDS: ACETAMINOPHEN 325 MG TAB PO PRN ×2 (04:46→18:20)
[2020-02-01] MEDS: InsuLIN REG 1unit/0.01ml Soln (100units/ml) SC SCH ×4 (06:00→23:35)
[2020-02-01] MEDS: ACCU-CHEK COMFORT CURVE STRIP VI SCH ×4 (06:00→23:33)
[2020-02-01] MEDS: INSULIN LANTUS (GLARGINE) 1 /0.01ml (100units/ml) SC SCH (06:14)
--- NOTE | 2020-02-01 06:50 | NUR ---
STABLE OVERNIGHT REMAINS ON 1 PRESSOR LEVOPHED AT LOW DOSE 5MCG, SEDATED WITH FENTANYL 150MCG,DIPRIVAN AT 35 MCG, AND VERSED 5 MG, VSS MAINTAINING MAP>65mmhg ,FEBRILE LOW GRADE 100.6 TMAX GIVEN TYLENOL AND TSB TEMP DOWN TO 99.3 CONTINUE CARE. COVID SWAB TAKEN YESTERDAY CAME BACK POSITIVE STILL.
[2020-02-01] MEDS: ALBUTEROL SULF 2.5 MG/0.5ML(0.5%) NEB SOLN NEB SCH ×3 (07:01→22:23)
--- NOTE | 2020-02-01 07:08 | NUR ---
Respiratory note: RECEIVED PATIENT ON V2 V200 VENT ORALLY INTUBATED WITH AN 8.0 ETT SECURED VIA CARLEE AT THE 24CM MARKING AT THE LIP, AND MECHANICALLY VENTILATED WITH THE CHARTED SETTINGS. SPO2 95%, LUNG SOUNDS DIM T/O, SMALL AMOUNT OF MAO SECRETIONS WHEN SUCTIONED. SKIN IS WARM/DRY TO THE TOUCH AND IS INTACT NEAR CARLEE SITE. THERE IS A TRIPLE LUMEN CENTRAL LINE PLACED IN THE RIGHT IJ AND IT IS PATENT. PITTING EDEMA NOTED IN BILATERAL UPPER EXTREMITIES. LEG SEQUENTIALS ARE IN PLACE AND OPERATIONAL. NO NEW AM CXR TO ASSESS. PATIENT IS UNRESPONSIVE TO BOTH VERBAL/TACTILE STIMULI AND IS SEDATED ON PROPOFOL, VERSED, AND FENTANYL DRIPS. HE IS RESTING COMFORTABLY AND TOLERATING VENT WELL, NO CHANGES MADE. VENT PLUGGED INTO RED OUTLET AND ALL ALARMS ARE SET AND AUDIBLE. WILL CONTINUE TO ASSESS PATIENT WELL VENTILATOR FUNCTION. MED-[employer] RUN INLINE.
[2020-02-01] MEDS: MIDAZOLAM DRIP 50 mg/50mL 50 ML IV SCH ×2 (09:00→21:07)
[2020-02-01] MEDS: FAMOTIDINE 20 MG TAB PO SCH ×2 (10:00→21:57)
[2020-02-01] MEDS: CHOLECALCIFEROL (VITD3) 2,000 UNIT CAP PO SCH (10:00)
[2020-02-01] MEDS: ENOXAPARIN SOD 40 MG/0.4 ML SYRINGE SC SCH (10:00)
[2020-02-01] MEDS: DexAMETHasone SOD PHOS 4 MG/1ML SDV INJ IV SCH (10:00)
[2020-02-01] MEDS: THIAMINE 100mg/ml INJ (200mg/2ml VIAL) IV SCH (10:00)
[2020-02-01] MEDS: ZINC SULFATE 220mg CAP or TAB PO SCH (10:00)
[2020-02-01] MEDS: ASCORBIC ACID 1,000 MG TAB PO SCH ×2 (10:00→21:57)
[2020-02-01] MEDS: fentaNYL Drip 2500mCg/250mlNS 250 ML IV SCH (11:41)
--- NOTE | 2020-02-01 12:26 | NUR ---
FAMILY UPDATED SPOKE TO REMY ERVIN, UPDATED ON PATIENTS CURRENT STATUS. ALL QUESTIONS ANSWERED.
[2020-02-01] MEDS: NOREPINEPHRINE 8 MG/250ML KIT 250 ML IV SCH (12:52)
--- NOTE | 2020-02-01 19:00 | NUR ---
RECD REPORT FROM LAI MAYFIELD REMAINS FULLY SEDATED ON, LOW DOSE OF LEVOPHED VSS, AFEBRILE AT THIS TIME. SB ON TELE HR-58/MIN.CONTINUE CARE.
--- NOTE | 2020-02-01 21:09 | NUR ---
2100 NO SEDATION VACATION CHANTELLE REMAINS FULLY SEDATED WITH FENTANYL AT 125 MCG AND,PROPOFOL AT 35 MCG/KG/HR AND VERSED AT 5 MG/HR. RASS-3
[2020-02-01] MEDS: PROPOFOL 100 ML IV SCH (21:36)
[2020-02-02] VITALS (102 sets, daily range): BP systolic 80–182; BP diastolic 47–100
[2020-02-02] MEDS: MIDAZOLAM DRIP 50 mg/50mL 50 ML IV SCH ×3 (03:22→16:31)
--- NOTE | 2020-02-02 03:22 | NUR ---
0322 accidentally by mistake entered a manual barcobe or this patient for a versed gtt ,its an error and cannot be corrected or undone ,it was a wrong patient
[2020-02-02] MEDS: PROPOFOL 100 ML IV SCH ×4 (04:30→23:21)
[2020-02-02] MEDS ORDERED: SODIUM CHLORIDE 0.9 % NEB SOLN 3ML NEB ONE ×2 (05:32→14:13)
[2020-02-02] MEDS: ALBUTEROL SULF 2.5 MG/0.5ML(0.5%) NEB SOLN NEB SCH ×3 (05:45→23:06)
[2020-02-02] MEDS: ACCU-CHEK COMFORT CURVE STRIP VI SCH ×4 (05:54→23:59)
[2020-02-02] MEDS: INSULIN LANTUS (GLARGINE) 1 /0.01ml (100units/ml) SC SCH (05:56)
[2020-02-02] MEDS: InsuLIN REG 1unit/0.01ml Soln (100units/ml) SC SCH ×3 (05:56→18:07)
--- NOTE | 2020-02-02 06:39 | NUR ---
REMAINS SATUS QOU NO ACUTE CHANGES FULLY SEDATED FENTANYL 125 MCG, PRPOFOL AT 30 MCG, VERSED 5MG, LEVOPHED AT 2 MCG VSS MAINTAINING AFEBRILE,
[2020-02-02] MEDS: fentaNYL Drip 2500mCg/250mlNS 250 ML IV SCH (08:17)
--- NOTE | 2020-02-02 08:50 | NUR ---
AM ASSESSMENT COMPLETED. REMAINS INTUBATED, SEDATED ON LOW DOSE OF LEVOPHED FOR BP SUPPORT. LOW GRADE TEMP. 100.2 R COOLING MEASURES IMPLEMENTED WITH ICE PACKS TO BILAT. ARM PITS, BILAT. GROINS AND BEHIND PT'S NECK. ORAL CARE PROVIDED PER VAP PROTOCOL. REPOSITIONED FOR COMFORT, MONITOR ALARMS VERIFIED. IV TUBING THAT WAS WAS REPLACED. REFER TO IV FLOW SHEET FOR MEDICATION TITRATION AMD THERMOREGULATION.
[2020-02-02] MEDS: ZINC SULFATE 220mg CAP or TAB PO SCH (10:36)
[2020-02-02] MEDS: DexAMETHasone SOD PHOS 4 MG/1ML SDV INJ IV SCH (10:36)
[2020-02-02] MEDS: FAMOTIDINE 20 MG TAB PO SCH ×2 (10:37→21:25)
[2020-02-02] MEDS: CHOLECALCIFEROL (VITD3) 2,000 UNIT CAP PO SCH (10:37)
[2020-02-02] MEDS: ENOXAPARIN SOD 40 MG/0.4 ML SYRINGE SC SCH (10:38)
[2020-02-02] MEDS: THIAMINE 100mg/ml INJ (200mg/2ml VIAL) IV SCH (10:42)
[2020-02-02] MEDS: ASCORBIC ACID 1,000 MG TAB PO SCH ×2 (10:42→21:25)
--- NOTE | 2020-02-02 12:27 | NUR ---
Nutrition Followup Notes Wt 78.0 kg Pt is covid positive. Pt is intubated and sedated per MD note with propofol running at 15.513 ml/hr providing 410 kcal from lipids. Pt with EN nutrition support is suspended for now d/t high residuals per RN. Will continue to monitor PO status, skin status, pertinent labs and weight trends. Will f/u in 2-3 days. Est Energy needs BW 65 [id number] kcals (25-30 kcal/kgBW), Est Protein needs: 65-78 gms/day (1.0-1.2 gm/kgBW). Will continue to monitor and reassess prn. Rec: EN support with Glucerna @ 65 ml/hr goal rate per MD approval Labs: GLUC 148 H, Alb 2.0 L BM: Pt with no recorded BMs, last BM unknown per RN note Skin: BS 10 high risk, skin intact, full details in clinical care coordinator note PES; Altered nutrition related lab values r.t current chronic medical condition aeb elev BUN hyperglycemia, mod hypoalb Impaired swallowing r.t current medical condition aeb pt`s intubated sedated with order of NPO Comments: 1) consider EN support with Glucerna @ 65 ml/hr per MD approval at current rate of propofol 2) advanced diet as medically feasible 3) refer to CDE on DC 4) continue current plan of care
[2020-02-02] MEDS: NOREPINEPHRINE 8 MG/250ML KIT 250 ML IV SCH (12:52)
--- NOTE | 2020-02-02 13:18 | NUR ---
UPDATED PT'S SON ARCADIO ON PT'S CONDITION. HE REQUESTED TO KNOW PT'S BLOOD TYPE AND HE ALSO WANTED TO KNOW IF PT HAD RECEIVED PLASMA. I INFORMED HIM THE PLASMA HAD BEEN ORDERED BUT IT HAS NOT ARRIVED YET. THERE IS A SHORTAGE AND IT MIGHT BE MORE DIFFICULT TO MATCH DUE TO PT'S BLOOD TYPE. HE ALSO WANTED TO BE UPDATED BY PHYSICIAN. I TOLD HIM TO SPEAK TO HIS SISTER MAHAMED IF MD HAS NOT UPDATED HER YESTERDAY TO LET ME KNOW AND I'LL HAVE PHYSICIAN CALL ONE OF THEM, BUT PHYSICIAN WILL NOT CALL BOTH OF THEM.
--- NOTE | 2020-02-02 15:51 | NUR ---
PT'S DAUGHTER MAHAMED CALLED TO SPEAK TO PT'S PHYSICIAN. SHE WANTED TO KNOW IF SHE COULD DONATE BLOOD FOR PT. I CLARIFIED THAT PT NEEDED PLASMA FROM A PT A SOURCE THAT HAS HAD COVID AND THAT HAS HIS BLOOD TYPE. SHE SAYS THAT SHE BELIEVES SHE HAS HAD COVID , I REFERRED HER TO LOOK ON LINE TO DIFFERENT CENTERS NEAR HER LOCATION WHERE SHE CAN FIND OUT WHERE SHE CAN BE TESTED AND THEN GO TO THE [facility] TO DONATE BLOOD AND FIND OUT HOW TO DESIGNATE BLOOD FOR HER FATHER.
--- NOTE | 2020-02-02 16:10 | NUR ---
DR. Aileen MEJIA CALL TO GET AN UPDATE ON PT'S CONDITION.
--- NOTE | 2020-02-02 16:48 | NUR ---
DR. KAPADIA ROUNDING ON PT. HE WANTS PT'S FIO2 BE DROPPED DOWN TO 30% AND IF PT TOLERATES FIO2 OF 30 THEN THE PEEP CAN BE DROPPED DOWN TO 8 AND PT CAN BE CPAP.
--- NOTE | 2020-02-02 16:52 | NUR ---
DR. KAPADIA IN PT'S ROOM ADJUSTING VENTILATOR SETTINGS.
--- NOTE | 2020-02-02 17:00 | NUR ---
DR. KAPADIA STATES IF PT TOLERATES FIO2 OF 30% FOR THE NEXT HOUR THEN THE PEEP OF 10 CAN BE DROP DOWN TO 8 AND PT CAN BE CPAP BY 0800. HE WANTS ALL SEDATION TO BE OFF BY 0800 AND PT TO BE ON CPAP TRIAL IN AM. SETTINGS GIVEN.
--- NOTE | 2020-02-02 19:35 | NUR ---
OPEN NOTES RECEIVED PATIENT SEDATED WITH IV VERSED, PROPOFOL AND FENTANYL. PUPILS BOTH REACTIVE TO LIGHT. NO SPONTANEOUS LIMB MOVEMENT NOTED. HYPOACTIVE COUGH AND GAG. WILL WEAN DOWN SEDATION FOR POSSIBLE CPAP IN AM. INTUBATED AND VENTILATED, ON AC MODE, FIO2 30%. ROCK SOUNDS CLEAR DIMINISHED. SUCTIONED SMALL AMOUNT OF ETT SECRETIONS. ORAL CARE DONE. ECG SR, BP STABLE. ON IV LEVOPHED AT 2MCG/MIN-WILL TITRATE TO KEEP SBP >90 MMHG. OGT CHECKED - ASPIRATED 80MLS OF GREENISH OUTPUT. NAZARIO CATHETER IN PLACED WITH YELLOWISH OUTPUT WITH SEDIMENTS FULL ASSESSMENT DONE -REFER INTERVENTIONS WILL CONTINUE TO MONITOR
--- NOTE | 2020-02-02 19:45 | NUR ---
LEVOPHED WEANED OFF BP HAS BEEN 120-130 MMHG SYSTOLIC FOR FEW READINGS LEVOPHED WEANED OFF REFER IV SPREADSHEET
--- NOTE | 2020-02-02 20:05 | NUR ---
AT BEDSIDE Dr. Eleuterio Pink at bedside informed of CPAP orders for the morning orders received for CBC and CMP in AM
--- NOTE | 2020-02-02 21:50 | NUR ---
CENTRAL LINE DRESSING CHANGED
--- NOTE | 2020-02-02 22:00 | NUR ---
LEVOPHED RE-STARTED BP 83/51 MMHG BP HAS BEEN LOW FOR THE LAST 30MINUTES IV LEVOPHED RE-STARTED AT 2MCG/MIN REFER IV SPREADSHEET FOR TITRATION
[2020-02-03] VITALS (100 sets, daily range): BP systolic 76–191; BP diastolic 44–100
[2020-02-03] MEDS: InsuLIN REG 1unit/0.01ml Soln (100units/ml) SC SCH ×4 (00:17→18:20)
--- NOTE | 2020-02-03 00:43 | NUR ---
RESPIRATORY PATIENT'S SPO2 87-88% - SUCTIONED DONE. NOTED STACKING BREATHS - INCREASED PROPOFOL BACK TO 30MCG/KG/MIN WITH ALL THESE INTERVENTION DONE PATIENT IS STILL DESATURATING RT PAGED - SHE WILL COME AND SEE PATIENT
--- NOTE | 2020-02-03 01:00 | NUR ---
FIO2 INCREASED TO 45% SATS 93-95% STILL STACKING BREATHS ON AND OFF
--- NOTE | 2020-02-03 02:00 | NUR ---
RESPIRATORY SATS 94-95% RR 16-20/MIN NOTED STILL WITH EPISODES OF STACKING BREATHS BUT LESSER THAN EARLIER KEPT SEDATION AT SAME RATE WILL CONTINUE TO MONITOR
[2020-02-03] MEDS: fentaNYL Drip 2500mCg/250mlNS 250 ML IV SCH ×2 (02:46→21:33)
[2020-02-03] MEDS: PROPOFOL 100 ML IV SCH ×5 (03:08→20:54)
--- NOTE | 2020-02-03 03:30 | NUR ---
HYGIENE PATIENT CLEANED WITH CHG WIPES. LINENS CHANGED. ORAL CARE DONE REPOSITIONED.
--- NOTE | 2020-02-03 04:00 | NUR ---
RESPIRATORY PATIENT IS STILL STACKING BREATHS. SATS 92-93% SUCTIONED ETT AND ORALLY - MINIMAL SECRETIONS TRIED TALKING TO PATIENT AND EXPLAIN - NO EFFECT SEDATION INCREASED -REFER IV SPREADSHEET
--- NOTE | 2020-02-03 05:00 | NUR ---
TEMP 100F COOLING MEASURES RENDERED
[2020-02-03] MEDS: ACCU-CHEK COMFORT CURVE STRIP VI SCH ×3 (05:26→18:12)
[2020-02-03] MEDS: INSULIN LANTUS (GLARGINE) 1 /0.01ml (100units/ml) SC SCH (05:26)
[2020-02-03 05:29] LABS: Basophils # (auto) 0 10 ^3/uL (0-0.2); Basophils % (auto) 0.2 % (0.0-2.0); Eosinophils # (auto) 0 10 ^3/uL (0-0.8); Eosinophils % (auto) 0.6 % (0.0-7.0); Hematocrit 44.7 % (41.0-53.0); Hemoglobin 14.7 g/dL (13.5-17.5); Lymphocytes # (auto) 0.6 10 ^3/uL (0.4-5.4); Lymphocytes % (auto) 9.5 % (10.0-50.0); Mean Corpuscular Hemoglobin 26.3 pg (28.0-32.0); Mean Corpuscular Hgb Conc. 32.9 g/dL (32.0-36.0); Mean Corpuscular Volume 79.8 fL (80.0-100.0); Monocytes # (auto) 0.4 10 ^3/uL (0-1.3); Monocytes % (auto) 6.5 % (0.0-12.0); Neutrophils # (auto) 5.1 10 ^3/uL (1.6-8.6); Neutrophils % (auto) 83.2 % (37.0-80.0); Nucleated Red Blood Cells % 0.1 %; Platelet Count (auto) 178 10^3/uL (140-450); Red Cell Distribution Width 15.9 % (11.8-14.3); White Blood Cell 6.2 10^3/uL (4.4-10.8)
--- NOTE | 2020-02-03 05:30 | NUR ---
UNABLE TO WEIGH BED WEIGHT SHOWS -2.9LBS
[2020-02-03 05:44] LABS: Potassium 3.6 mmol/L (3.5-5.1)
[2020-02-03 05:51] LABS: Albumin 2.1 g/dL (3.4-5.0); BUN/Creatinine Ratio 32.4; Bilirubin, Total 1.2 mg/dL (0.2-1.0); Calcium 7.9 mg/dL (8.5-10.1); Total Protein 6.3 g/dL (6.4-8.2)
--- NOTE | 2020-02-03 06:00 | NUR ---
TEMP RE-ASSESS TEMP 99.1F RECTALLY
--- NOTE | 2020-02-03 06:10 | NUR ---
UNABLE TO WEAN OFF SEDATION PATIENT IS STILL STACKING BREATHS TV GOES 0-1000MLS SATS 92-94% PATIENT OPENS EYES TO STIMULATION BUT NOT FOLLOWING COMMANDS MITTENS APPLIED IN BOTH HANDS WILL CONTINUE TO MONITOR
[2020-02-03] MEDS: ALBUTEROL SULF 2.5 MG/0.5ML(0.5%) NEB SOLN NEB SCH ×3 (06:43→22:42)
--- NOTE | 2020-02-03 07:10 | NUR ---
REPORT REPORT GIVEN TO LAI TAVAREZ
--- NOTE | 2020-02-03 07:21 | NUR ---
OPENING Report received from Ny MILLER RN.
[2020-02-03] MEDS: THIAMINE 100mg/ml INJ (200mg/2ml VIAL) IV SCH (09:35)
[2020-02-03] MEDS: ENOXAPARIN SOD 40 MG/0.4 ML SYRINGE SC SCH (09:36)
[2020-02-03] MEDS: FAMOTIDINE 20 MG TAB PO SCH ×2 (09:36→21:23)
[2020-02-03] MEDS: DexAMETHasone SOD PHOS 4 MG/1ML SDV INJ IV SCH (09:36)
[2020-02-03] MEDS: CHOLECALCIFEROL (VITD3) 2,000 UNIT CAP PO SCH (09:36)
[2020-02-03] MEDS: ASCORBIC ACID 1,000 MG TAB PO SCH ×2 (09:36→21:23)
[2020-02-03] MEDS: ZINC SULFATE 220mg CAP or TAB PO SCH (09:36)
[2020-02-03] MEDS: NOREPINEPHRINE 8 MG/250ML KIT 250 ML IV SCH ×2 (12:52→14:45)
--- NOTE | 2020-02-03 13:25 | NUR ---
ROUNDING Dr. Lugo rounding. No new orders received. Updated on vent and sedation changes due to low saturations and patient breathing over the vent.
--- NOTE | 2020-02-03 13:35 | NUR ---
SPOKE TO FAMILY Spoke to Chris, patients son, and updated him on current status. All questions and concerns answered.
--- NOTE | 2020-02-03 13:40 | NUR ---
SPEAKING WITH FAMILY Dr. Eleuterio Grimaldo on the phone with the patients son Chris, updating him on patient condition and plan of care.
--- NOTE | 2020-02-03 16:14 | NUR ---
HANDOFF REPORT GIVEN Report given to Venita HOYT.
--- NOTE | 2020-02-03 16:15 | NUR ---
REPORT REPORT RECEIVED FROM LAI TAVAREZ. CHECKED PT FROM [facility] PT IS ON ISOLATION , + COVID.
--- NOTE | 2020-02-03 16:30 | NUR ---
ASSESSMENT PT RESTING IN BED WITH EYES CLOSED. DOES NOT RESPOND TO VERBAL STIMULI BUT OPENS EYES TO PAIN. NO TRACKING NOTED. VENTILATOR SETTINGS OF: 8 FR ETT/ 24 AT THE LIP, AC 16, TV 450, 45% FIO2 AND PEEP OF 8. LUNGS CLEAR AND DIMINISHED THROUGHOUT. O2 SAT OF 99%. TELE ST 107. PALPABLE PULSES TO ALL EXTREMITIES. ABD SOFT WIT HYPOACTIVE BOWEL SOUNDS. OGT WITH PLACEMENT VERIFIED AND 60 ML BILE RESIDUAL. PASSED SMALL AMOUNT OF MAO MUCUS ROM RECTUM. FIDELIA CARE GIVEN. . NAZARIO CATHETER DRAINING CLEAR GREENISH YELLOW URINE. DTI NOTED TO BOTH LEFT AND RIGHT HEEL AND ABRASION NOTED TO RIGHT INNER COCCYX. OPTIFOAM TO SACRUM. TURNED TO THE RIGHT SIDE. RAILS UP X4 AND BED IN LOW POSITION FOR PT SAFETY.
--- NOTE | 2020-02-03 18:00 | NUR ---
PT TURNED FOR COMFORT. ACCUCHECK OF 218 AND PT GIVEN 8 UNITS REGULAR INSULIN SQ. NAZARIO WITH 975 ML OUT.
--- NOTE | 2020-02-03 18:00 | NUR ---
PT TEACHING PT UNABLE TO BENEFIT FROM PT TEACHING AT THIS TIME HE IS SEDATED WHILE INTUBATED. Addendum: 02/03/20 at 1953 by Venita Whitaker RN Amended: Links added.
--- NOTE | 2020-02-03 18:50 | NUR ---
Respiratory note: RECEIVED PT ON VENT V2, VENT CONNECTED TO RED OUTLET AND O2 SOURCE. ALARMS ARE SET AND AUDIBLE. AMBU BAG AND MASK AT BEDSIDE. PTS CURRENT TEMP READING 99.1F. VENT CHECK DONE FROM PTS ROOM DOOR DUE TO COVID PRECAUTIONS. NO CHANGES MADE WILL CONTINUE TO MONITOR.
--- NOTE | 2020-02-03 19:15 | NUR ---
REPORT REPORT GIVEN TO USMAN KNAPP RN. CHECKED ON THE PT AT THE [facility] PT IN ISOLATION FOR +COVID.
--- NOTE | 2020-02-03 20:00 | NUR ---
FAMILY CALLED PATIENT'S SON ARCADIO CALLED. CORRECT PASSWORD GIVEN. HE IS ASKING IF WHAT WOULD BE THE APPROPRIATE TIME TO CALL AND TALK TO THE MD TOMORROW. THEY HAVE QUESTIONS REGARDING TRACHEOSTOMY AND DIRECT DONOR DONATION TOLD HIM THIS RN WILL TRY TO SET THE TIME FOR TOMORROW IF DR. Eleuterio CABA IS STILL HERE IN THE HOSPITAL BUT IF NOT DAY SHIFT WILL DO IT. THEY'RE AVAILABILITY TIME IS 1200 NOON IF POSSIBLE. HIS NUMBER IS [phone]
--- NOTE | 2020-02-03 20:00 | NUR ---
Respiratory note: VENT CHECK DONE FROM PTS ROOM DOOR DUE TO COVID PRECAUTIONS. PTS CURRENT TEMP READING 99.9F. NO CHANGES MADE WILL CONTINUE TO MONITOR.
--- NOTE | 2020-02-03 20:01 | NUR ---
TRIED PAGING DR. Eleuterio CABA BUT IT GOES TO [employer] NUMBER TRIED CALLING THE FLOOR TO CHECK IF HE IS STILL HERE IN THE HOSPITAL - BUT HE IS NOT WILL WAIT FOR AWHILE IF HE'LL MAKE ROUNDS [place]
--- NOTE | 2020-02-03 21:00 | NUR ---
SEDATION VACATION NOT DONE PATIENT IS STACKING BREATHS WHILE WEANING DOWN SEDATION RR 20-25/MIN Addendum: 02/03/20 at 2136 by Ny Baez RN Amended: Links added.
--- NOTE | 2020-02-03 21:03 | NUR ---
CALLED FAMILY.TALKED TO ARCADIO. INFORMED THAT THIS RN TRIED LOCATING IF DR. CABA IS IN THE HOSPITAL BUT HE IS NOT. AND HIS EXCHANGE SERVICE GOES TO A DIFFERENT DR [employer]. INFORMED THAT THIS RN WILL TALKED TO DAY SHIFT RN TO GET HOLD OFF THE DR TOMORROW. ARCADIO SAID THAT HE TALKED TO [facility] AND THAT THEY SAID THEY CAN DO DIRECT DONATION BUT THE MD NEEDS TO SPEAK TO THE HOSPITAL BLOOD BANK TO COORDINATE IT. ALL THESE INFO WILL RELAY TO DAY SHIFT RN
--- NOTE | 2020-02-03 22:42 | NUR ---
Respiratory note: AT BEDSIDE IN FULL PPE FOR COVID PRECAUTIONS. MED NEB TX GIVEN INLINE VIA AEROGEN NO ADVERSE REACTION NEEDED. BS ARE COURSE SXD VIA ETT FOR MODERATE THICK PALE YELLOW SECRETIONS.PTS CURRENT TEMP READING 99.5F. NO CHANGES MADE WILL CONTINUE TO MONITOR.
[2020-02-04] VITALS (89 sets, daily range): BP systolic 74–189; BP diastolic 45–97
[2020-02-04] MEDS: InsuLIN REG 1unit/0.01ml Soln (100units/ml) SC SCH ×5 (01:30→23:09)
[2020-02-04] MEDS: ACCU-CHEK COMFORT CURVE STRIP VI SCH ×5 (01:30→23:36)
--- NOTE | 2020-02-04 02:25 | NUR ---
Respiratory note: VENT CHECK DONE FROM PTS ROOM DOOR DUE TO COVID PRECAUTIONS.PTS CURRENT TEMP READING 99.9F. NO CHANGES MADE WILL CONTINUE TO MONITOR.
[2020-02-04] MEDS: PROPOFOL 100 ML IV SCH ×5 (05:01→23:34)
[2020-02-04] MEDS: INSULIN LANTUS (GLARGINE) 1 /0.01ml (100units/ml) SC SCH ×2 (06:05→11:39)
[2020-02-04] MEDS: ALBUTEROL SULF 2.5 MG/0.5ML(0.5%) NEB SOLN NEB SCH ×3 (06:35→22:51)
[2020-02-04] MEDS: hydrALAZINE HCL 20 MG/ML VL IV PRN ×2 (10:22→10:31)
[2020-02-04] MEDS: DexAMETHasone SOD PHOS 4 MG/1ML SDV INJ IV SCH (10:28)
[2020-02-04] MEDS: ZINC SULFATE 220mg CAP or TAB PO SCH (10:28)
[2020-02-04] MEDS: amLODIPine BESYLATE 5 MG TAB PO SCH (10:28)
[2020-02-04] MEDS: THIAMINE 100mg/ml INJ (200mg/2ml VIAL) IV SCH (10:28)
[2020-02-04] MEDS: ASCORBIC ACID 1,000 MG TAB PO SCH ×2 (10:29→22:06)
[2020-02-04] MEDS: CHOLECALCIFEROL (VITD3) 2,000 UNIT CAP PO SCH (10:29)
[2020-02-04] MEDS: FAMOTIDINE 20 MG TAB PO SCH ×2 (10:29→22:05)
[2020-02-04] MEDS: fentaNYL Drip 2500mCg/250mlNS 250 ML IV SCH ×2 (10:30→21:53)
[2020-02-04] MEDS: ENOXAPARIN SOD 40 MG/0.4 ML SYRINGE SC SCH (10:30)
--- NOTE | 2020-02-04 12:50 | NUR ---
Nutrition Followup Notes Wt 78.0 kg Pt is covid positive. Pt is intubated and sedated per MD note with propofol running at 18.72 ml/hr providing 494 kcal from lipids. Pt with EN nutrition support is still suspended for now d/t high residuals per RN doc. Consider initiating TPN nutrition support if pt EN support remains suspended over the next 48 hours. Will continue to monitor PO status, skin status, pertinent labs and weight trends. Will f/u in 2-3 days. Est Energy needs BW 65 [id number] kcals (25-30 kcal/kgBW), Est Protein needs: 65-78 gms/day (1.0-1.2 gm/kgBW). Will continue to monitor and reassess prn. Rec: EN support with Glucerna @ 45 ml/hr goal rate at current rate of propofol (18.72 ml/hr) per MD approval If pt EN support remains suspended over the next 48 hours, consider initiating TPN nutrition support Labs: GLUC 132 H, Alb 2.1 L BM: Pt with no recorded BMs, last BM unknown per RN note Skin: BS 10 high risk, skin intact, full details in elderly caregiver note PES; Altered nutrition related lab values r.t current chronic medical condition aeb elev BUN hyperglycemia, mod hypoalb Impaired swallowing r.t current medical condition aeb pt`s intubated sedated with order of NPO Comments: 1) consider EN support with Glucerna @ 45 ml/hr per MD approval at current rate of propofol 2) advanced diet as medically feasible 3) refer to CDE on DC 4) continue current plan of care
[2020-02-04] MEDS: NOREPINEPHRINE 8 MG/250ML KIT 250 ML IV SCH (12:52)
--- NOTE | 2020-02-04 18:45 | NUR ---
Patient in general had a good day with no major concerns or issues. Patient awoke looking straight ahead; increased Propofol to help with this. Patient remains under sedation with no signs or symptoms of acute distress.
--- NOTE | 2020-02-04 19:10 | NUR ---
OPENING NOTES ASSUMED CARE, ON VENT AC MODE, SEDATION WITH PROPOFOL AND FENTANYL INFUSING IN THE RIGHT IJ, OGT IN PLACE, NAZARIO CATHETER DRAINING TO A LIGHT WEN URINE, SCD'S ON BOTH LEGS. CLEAR LUNG SOUNDS NOTED W/ MODERATE THICK CREAMY SECRETIONS NOTED, SINUS RHYTHM-ST NOTED. BED IN LOWEST POSITION WITH SIDE RAILS UP,BED ALARM ON. WILL CONTINUE CARE AND MONITORING.
--- NOTE | 2020-02-04 20:35 | NUR ---
NASOPHARYNGEAL SWAB FOR COVID TESTING DONE. SPECIMEN SENT TO LAB
--- NOTE | 2020-02-04 21:00 | NUR ---
LEVOPHED OFF, SBP INCREASED TO 170'S 180'S. WILL CONTINUE TO MONITOR VS
[2020-02-04] MEDS: ACETAMINOPHEN 325 MG TAB PO PRN (23:31)
--- NOTE | 2020-02-04 23:32 | NUR ---
HYPERTHERMIA TEMP 102, COOLING MEASURES DONE, ACETAMINOPHEN GIVEN PRN ORDERED
[2020-02-05] VITALS (97 sets, daily range): BP systolic 80–147; BP diastolic 47–81
--- NOTE | 2020-02-05 00:45 | NUR ---
TEMP 102.2, COOLING BLANKET PROVIDED
--- NOTE | 2020-02-05 01:14 | NUR ---
MD SANTOS SPOKE WITH DR. HENSLEY THRU PHONE, UPDATED ON PT'S STATUS RE: TACHYCARDIA, TACHYPNEA AND STACKING BREATHING, ON AND OF DESATURATION, 83-88%, GAVE AN ORDER TO START VERSED DRIP. WILL CARRY OUT AN ORDER.
[2020-02-05] MEDS ORDERED: MIDAZOLAM DRIP 50 mg/50mL 50 ML IV ONE (01:17)
[2020-02-05] MEDS: MIDAZOLAM DRIP 50 mg/50mL 50 ML IV SCH ×3 (01:20→22:34)
--- NOTE | 2020-02-05 01:36 | NUR ---
MIDAZOLAM STARTED @ 2MG/HR, HR 120, R 30, SPO2 83-84%, RT AWARE.
[2020-02-05 03:46] LABS: Platelet Count (auto) 155 10^3/uL (140-450)
[2020-02-05 03:49] LABS: Hematocrit 44.3 % (41.0-53.0); Hemoglobin 14.8 g/dL (13.5-17.5); Mean Corpuscular Hemoglobin 26.6 pg (28.0-32.0); Mean Corpuscular Hgb Conc. 33.5 g/dL (32.0-36.0); Mean Corpuscular Volume 79.5 fL (80.0-100.0); Red Blood Cells 5.57 10^6/uL (4.5-5.90); Red Cell Distribution Width 16.2 % (11.8-14.3); White Blood Cell 13.2 10^3/uL (4.4-10.8)
[2020-02-05 03:52] LABS: Band Neutrophils % (manual) 0; Basophils % (manual) 0 (0.0-2.0); Blast Cells 0; Eosinophils % (manual) 0 (0-7); Metamyelocytes % 0; Myelocytes % 0; Promyelocytes % 0; Reactive Lymphocytes 0
--- NOTE | 2020-02-05 04:00 | NUR ---
Morning care done, partial linens changed, repositioned for comfort
[2020-02-05 04:09] LABS: Albumin 2.2 g/dL (3.4-5.0); Potassium 3.6 mmol/L (3.5-5.1)
[2020-02-05 04:15] LABS: BUN/Creatinine Ratio 16.1; Bilirubin, Total 1.7 mg/dL (0.2-1.0); Total Protein 6.5 g/dL (6.4-8.2)
[2020-02-05 04:34] LABS: Lymphocytes % (manual) 5 (10.0-50.0); Monocytes % (manual) 1 (0-12)
[2020-02-05] MEDS: InsuLIN REG 1unit/0.01ml Soln (100units/ml) SC SCH ×3 (06:00→18:26)
--- NOTE | 2020-02-05 06:00 | NUR ---
Oral care done
--- NOTE | 2020-02-05 06:00 | NUR ---
Status update Latest temp 98.5, rectal, HR 78, R 20 BP 99/60, SPO2 96%, Pt resting comfortably w/ no signs of distress.
[2020-02-05] MEDS: ACCU-CHEK COMFORT CURVE STRIP VI SCH ×3 (06:01→18:08)
[2020-02-05] MEDS ORDERED: SODIUM CHLORIDE 0.9 % NEB SOLN 3ML NEB ONE ×2 (06:23→14:23)
--- NOTE | 2020-02-05 10:30 | NUR ---
DR. KAPADIA AT BEDSIDE: ORDERS MD UPDATED ON PT'S CURRENT STATUS, LABS AND POC FOR TODAY. ORDERS GIVEN AND TO BE CARRIED OUT. CONTINUE CARE. INFORMED CURRENT FIO2 AT 80%.
[2020-02-05] MEDS: ZINC SULFATE 220mg CAP or TAB PO SCH (10:38)
[2020-02-05] MEDS: amLODIPine BESYLATE 5 MG TAB PO SCH (10:38)
[2020-02-05] MEDS: ASCORBIC ACID 1,000 MG TAB PO SCH ×2 (10:38→22:36)
[2020-02-05] MEDS: DexAMETHasone SOD PHOS 4 MG/1ML SDV INJ IV SCH (10:38)
[2020-02-05] MEDS: THIAMINE 100mg/ml INJ (200mg/2ml VIAL) IV SCH (10:38)
[2020-02-05] MEDS: FAMOTIDINE 20 MG TAB PO SCH ×2 (10:38→22:36)
[2020-02-05] MEDS: CHOLECALCIFEROL (VITD3) 2,000 UNIT CAP PO SCH (10:39)
[2020-02-05] MEDS: ENOXAPARIN SOD 40 MG/0.4 ML SYRINGE SC SCH (10:39)
[2020-02-05] MEDS: ALBUTEROL SULF 2.5 MG/0.5ML(0.5%) NEB SOLN NEB SCH ×3 (11:35→22:08)
--- NOTE | 2020-02-05 11:48 | NUR ---
WOUND CARE NOTE: Attempted to see patient for reevaluation of wound and skin integrity monitoring. Per RN Dolores's recommendation to delay skin assessment as patient does not tolerate turning as his O2 saturation drops when turn. Wound care will try to see patient at later time when patient is stable to turn.
[2020-02-05] MEDS: NOREPINEPHRINE 8 MG/250ML KIT 250 ML IV SCH (11:54)
--- NOTE | 2020-02-05 14:14 | NUR ---
DR. Babak CABA AT BEDSIDE: ORDERS MD UPDATED ON PT'S CURRENT STATUS, LABS AND POC FOR TODAY. INFORMED PATIENT CONTINUES AT FIO2 AT 80%. COVID TESTING FROM YESTERDAY STILL REMAINS POSITIVE. INFORMED THAT BOTH DR. VENTURA AND DR. VANEGAS WANT TO HOLD OFF ON TRACH AND PEG AT THIS TIME. VERBALIZES UNDERSTANDING. MD OK TO HOLD CT ANGIO AT THIS TIME DUE TO PATIENT BEING UNSTABLE FOR TRANSPORT. OTHER ORDERS GIVEN AND TO BE CARRIED OUT. CONTINUE CARE.
--- NOTE | 2020-02-05 15:06 | NUR ---
PEEP + ON VENT. INCREASED TO +10 BY Juan Antonio MERCADO AT THIS TIME, PER DR. KAPADIA' ORDERS. CURRENT FIO2 NOW AT 75%. CONTINUE CARE.
--- NOTE | 2020-02-05 20:21 | NUR ---
RECEIVED A CALL FROM PT'S SON, ARCADIO, UPDATED ON PT'S STATUS AND POC, ALL QUESTIONS AND CONCERNS WERE ADDRESSED. VERBALIZED UNDERSTANDING.
[2020-02-06] VITALS (100 sets, daily range): BP systolic 77–130; BP diastolic 41–70
--- NOTE | 2020-02-06 05:00 | NUR ---
Morning care done, linens and gown changed
--- NOTE | 2020-02-06 05:20 | NUR ---
Oral care done
[2020-02-06] MEDS: ACCU-CHEK COMFORT CURVE STRIP VI SCH ×4 (05:50→18:04)
[2020-02-06] MEDS: INSULIN LANTUS (GLARGINE) 1 /0.01ml (100units/ml) SC SCH (06:20)
[2020-02-06] MEDS: InsuLIN REG 1unit/0.01ml Soln (100units/ml) SC SCH ×4 (06:20→18:05)
[2020-02-06] MEDS: ALBUTEROL SULF 2.5 MG/0.5ML(0.5%) NEB SOLN NEB SCH ×3 (06:59→22:17)
[2020-02-06] MEDS: PROPOFOL 100 ML IV SCH ×4 (09:42→21:05)
[2020-02-06] MEDS: ZINC SULFATE 220mg CAP or TAB PO SCH (09:56)
[2020-02-06] MEDS: DexAMETHasone SOD PHOS 4 MG/1ML SDV INJ IV SCH (09:56)
[2020-02-06] MEDS: ENOXAPARIN SOD 40 MG/0.4 ML SYRINGE SC SCH (09:56)
[2020-02-06] MEDS: amLODIPine BESYLATE 5 MG TAB PO SCH (09:57)
[2020-02-06] MEDS: FAMOTIDINE 20 MG TAB PO SCH ×2 (09:58→22:00)
[2020-02-06] MEDS: THIAMINE 100mg/ml INJ (200mg/2ml VIAL) IV SCH (09:59)
[2020-02-06] MEDS: ASCORBIC ACID 1,000 MG TAB PO SCH ×2 (10:00→22:00)
--- NOTE | 2020-02-06 10:32 | NUR ---
WOUND CARE NOTE: Wound care in to see patient for skin integrity monitoring. Patient continue resting on air bed in ICU Rm. 105. Patient is intubated, sedated and mechanically ventilated. Patient appears to be in no pain using Daugherty Purcell Faces pain Scale. His Landry score is 12. Skin assessment done with the assistance of patient's nurse, LAI Radford. Patient's L buttock continue to display scabbed abrasion with pink and red surrounding skin. Mariah care given,applied Z Guard cream and covered upper sacrum with Opti foam sacral dressing. Patient's L heel Stage 1 pressure injury looks improving now blanches slowly. Patient's Rt lateral ear noted with 0.8x0.8cm dry dark brown scab, area is clean and dry, left open to air. New photographs of mentioned skin issue are taken for reference. Repositioned patient for comfort facing his Lt. side, redistributed pressure points with pillows. Patient tolerated well. LAI Radford at bedside. RECOMMENDATION: Continuation of all wound care orders prescribed by MD, continue with skin/wound plan of care, continue monitoring by wound care while patient is hospitalized. Addendum: 02/06/20 at 1604 by Chantelle Yap RN Amended: Links added.
--- NOTE | 2020-02-06 11:00 | NUR ---
Nutrition Followup Notes Wt 78.2 kg Pt is covid positive. Pt is intubated and sedated per MD note with propofol running at 25.855 ml/hr providing 683 kcal from lipids. Pt with EN nutrition support, pt received 50ml 8/9 so far per RN note. Continue with TF as tolerated. Est Energy needs BW 65 [id number] kcals (25-30 kcal/kgBW), Est Protein needs: 65-78 gms/day (1.0-1.2 gm/kgBW). Will continue to monitor and reassess prn. Rec: EN support with Glucerna @ 45 ml/hr goal rate at current rate of propofol per MD approval Labs: Gluc 180H, Creat 0.62L, Ca 8.0L, Alb 2.2L BM: Pt with no recorded BMs, last BM unknown per RN note Skin: BS 10 high risk, skin intact, full details in laboratory animal care veterinarian note PES; Altered nutrition related lab values r.t current chronic medical condition aeb elev BUN hyperglycemia, mod hypoalb Impaired swallowing r.t current medical condition aeb pt`s intubated sedated with order of NPO Comments: 1) consider EN support with Glucerna @ 45 ml/hr per MD approval at current rate of propofol 2) advanced diet as medically feasible 3) refer to CDE on DC 4) continue current plan of care
--- NOTE | 2020-02-06 11:59 | NUR ---
Resumed care at 0720, orders reviewed and ongoing assessments being done. Being treated for multiple problems and remains intubated and sedated. Is Covid 19 positive and in isolation per protocol. Not able to open eyes or follow any simple commands due to sedation. Cough and gag intact. Alana jewel hole cornerer was in earlier today and skin assessment done and pictures retaken of documented wounds. Total bed linen changed and wounds cleansed and redressed. Dr. St, scrap shear operator was in and rounded earlier today. Continue current plan of care.
[2020-02-06] MEDS: CHOLECALCIFEROL (VITD3) 2,000 UNIT CAP PO SCH (12:35)
[2020-02-06] MEDS: NOREPINEPHRINE 8 MG/250ML KIT 250 ML IV SCH (12:52)
--- NOTE | 2020-02-06 15:14 | NUR ---
TITRATED FIO2 TO 50%. SPO2 96% AFTER CHANGE. RN JORDIN AWARE.
[2020-02-06 15:47] LABS: Basophils # (auto) 0 10 ^3/uL (0-0.2); Basophils % (auto) 0.1 % (0.0-2.0); Eosinophils # (auto) 0 10 ^3/uL (0-0.8); Hemoglobin 12.7 g/dL (13.5-17.5); Lymphocytes # (auto) 0.2 10 ^3/uL (0.4-5.4); Mean Corpuscular Hemoglobin 26.4 pg (28.0-32.0); Monocytes # (auto) 0.2 10 ^3/uL (0-1.3); Monocytes % (auto) 2.1 % (0.0-12.0); Neutrophils # (auto) 9.8 10 ^3/uL (1.6-8.6); Nucleated Red Blood Cells % 0.1 %; White Blood Cell 10.3 10^3/uL (4.4-10.8)
[2020-02-06 15:48] LABS: Eosinophils % (auto) 0.2 % (0.0-7.0); Hematocrit 38.9 % (41.0-53.0); Mean Corpuscular Hgb Conc. 32.6 g/dL (32.0-36.0); Neutrophils % (auto) 95.6 % (37.0-80.0); Platelet Count (auto) 135 10^3/uL (140-450); Red Cell Distribution Width 16.6 % (11.8-14.3)
[2020-02-06 16:01] LABS: INR 1.11 (0.9-1.15); Partial Thromboplastin Time 24.7 sec (23.0-31.2)
[2020-02-06 16:12] LABS: Calcium 7.9 mg/dL (8.5-10.1); Potassium 3.7 mmol/L (3.5-5.1)
[2020-02-06 16:17] LABS: Albumin 1.8 g/dL (3.4-5.0); BUN/Creatinine Ratio 25.6; Bilirubin, Direct 1.3 mg/dL (0-0.2); Bilirubin, Total 1.7 mg/dL (0.2-1.0); Magnesium 2.2 mg/dL (1.6-2.6); Total Protein 5.9 g/dL (6.4-8.2)
[2020-02-06] MEDS: fentaNYL Drip 2500mCg/250mlNS 250 ML IV SCH (17:47)
[2020-02-06] MEDS: MIDAZOLAM DRIP 50 mg/50mL 50 ML IV SCH ×2 (17:48→23:48)
[2020-02-06] MEDS: FUROSEMIDE 40 MG/4 ML VIAL IV SCH (17:50)
--- NOTE | 2020-02-06 19:30 | NUR ---
Report received from LAI Blue. Patient intubated with ETT 8.0 at 24 CM L/L. Vent setting: AC 16, Vt 450, FiO2 40%, PEEP 10. IVF: Fentanyl drip infusion at 150 mcg/hr; Propofol drip infusion at 50 mcg/kg/min; Versed drip infusion at 10 mg/hr; and, Levophed dip at 2 mcg/min. Will continue with POC; and, will continue to monitor VS, focus on BP, RASS -3, and clinical status.
--- NOTE | 2020-02-06 21:05 | NUR ---
Propofol drip changed to new bottle.
--- NOTE | 2020-02-06 22:00 | NUR ---
Rtn scheduled medication given. See e-MAR.
[2020-02-07] VITALS (95 sets, daily range): BP systolic 85–170; BP diastolic 48–96
--- NOTE | 2020-02-07 | NUR ---
Accucheck 187 mg/dl. Patient covered with Regular Insulin 4 units SQ.
[2020-02-07] MEDS: PROPOFOL 100 ML IV SCH ×6 (01:15→23:00)
--- NOTE | 2020-02-07 04:00 | NUR ---
AM blood collected from CVC Line by public relations writer. Specimens sent to lab.
--- NOTE | 2020-02-07 04:45 | NUR ---
PCXR done at bedside.
[2020-02-07 05:14] LABS: Basophils # (auto) 0 10 ^3/uL (0-0.2); Eosinophils # (auto) 0 10 ^3/uL (0-0.8); Hemoglobin 13.1 g/dL (13.5-17.5); Lymphocytes # (auto) 0.4 10 ^3/uL (0.4-5.4); Monocytes # (auto) 0.5 10 ^3/uL (0-1.3)
[2020-02-07 05:16] LABS: Basophils % (auto) 0.2 % (0.0-2.0); Eosinophils % (auto) 0.4 % (0.0-7.0); Hematocrit 39.7 % (41.0-53.0); Lymphocytes % (auto) 4.1 % (10.0-50.0); Mean Corpuscular Hemoglobin 26.4 pg (28.0-32.0); Mean Corpuscular Hgb Conc. 32.9 g/dL (32.0-36.0); Mean Corpuscular Volume 80.4 fL (80.0-100.0); Monocytes % (auto) 4.9 % (0.0-12.0); Neutrophils # (auto) 9.3 10 ^3/uL (1.6-8.6); Neutrophils % (auto) 90.4 % (37.0-80.0); Nucleated Red Blood Cells % 0.2 %; Platelet Count (auto) 184 10^3/uL (140-450); Red Blood Cells 4.94 10^6/uL (4.5-5.90); White Blood Cell 10.3 10^3/uL (4.4-10.8)
[2020-02-07 05:36] LABS: Magnesium 1.9 mg/dL (1.6-2.6); Potassium 3.3 mmol/L (3.5-5.1)
--- NOTE | 2020-02-07 05:38 | NUR ---
Respiratory note: AM CXR ASSESSED AND IT SHOWS ETT IN SATISFACTORY POSITION SITTING APPROX 3.8 CM ABOVE THE INGRIS.
[2020-02-07 05:51] LABS: Albumin 1.9 g/dL (3.4-5.0); BUN/Creatinine Ratio 29.5; Bilirubin, Direct 0.8 mg/dL (0-0.2); Bilirubin, Total 1.2 mg/dL (0.2-1.0); CRP High Sensitivity 16.1 mg/dL (< 0.3); Total Protein 6.1 g/dL (6.4-8.2)
--- NOTE | 2020-02-07 05:52 | NUR ---
Propofol bottle changed to new bag.
[2020-02-07] MEDS: ACCU-CHEK COMFORT CURVE STRIP VI SCH ×4 (06:00→18:10)
[2020-02-07] MEDS: InsuLIN REG 1unit/0.01ml Soln (100units/ml) SC SCH ×4 (06:00→18:33)
[2020-02-07] MEDS: FUROSEMIDE 40 MG/4 ML VIAL IV SCH ×2 (06:00→18:25)
--- NOTE | 2020-02-07 06:00 | NUR ---
Accucheck 129 mg/dl. No coverage required.
[2020-02-07 06:06] LABS: INR 1.07 (0.9-1.15); Partial Thromboplastin Time 23.3 sec (23.0-31.2)
[2020-02-07] MEDS: MIDAZOLAM DRIP 50 mg/50mL 50 ML IV SCH ×4 (06:30→23:30)
--- NOTE | 2020-02-07 06:30 | NUR ---
Versed drip changed to new bag.
--- NOTE | 2020-02-07 07:15 | NUR ---
Respiratory note: RECEIVED PATIENT ON V2 V200 ORALLY INTUBATED WITH AN 8.0 ETT SECURED VIA CARLEE AT THE 24CM MARKING AT THE LIP,AND MECHANICALLY VENTILATED WITH THE CHARTED SETTINGS. SPO2 92%, LUNG SOUNDS DIM T/O, SMALL AMOUNT OF DARK MAO SECRETIONS WHEN SUCTIONED. SKIN IS WARM/DRY TO THE TOUCH AND IS INTACT NEAR CARLEE SITE. AM CXR ASSESSED AND IT SHOWS ETT IN SATISFACTORY POSITION SITTING APPROX 3.8 CM ABOVE THE INGRIS. PATIENT IS UNRESPONSIVE TO BOTH VERBAL/TACTILE STIMULI AND IS SEDATED ON VERSED, PROPOFOL, AND FENTANYL DRIPS. HE IS RESTING COMFORTABLY AND TOLERATING VENT WELL, NO CHANGES MADE. VENT PLUGGED INTO RED OUTLET AND ALL ALARMS ARE SET AND AUDIBLE. WILL CONTINUE TO ASSESS PATIENT WELL VENTILATOR FUNCTION. Pidgon RUN INLINE.
[2020-02-07] MEDS: ALBUTEROL SULF 2.5 MG/0.5ML(0.5%) NEB SOLN NEB SCH ×3 (07:16→22:42)
[2020-02-07] MEDS: INSULIN LANTUS (GLARGINE) 1 /0.01ml (100units/ml) SC SCH (07:19)
--- NOTE | 2020-02-07 07:20 | NUR ---
Rtn scheduled medication given. See e-MAR.
--- NOTE | 2020-02-07 08:10 | NUR ---
Resumed care at 0715, orders reviewed and ongoing assessments being done. Being treated for multiple problems and remains intubated and sedated. At this time not able to open eyes or follow any direction. Will attempts sedation vacation later today. Remains on Levophed gtt for BP support and will titrate as appropriate. Covid-19 in-house nasal swab collected and walked down to Laboratory and recorded. Is Covid-19 positive and in isolation per protocol.
[2020-02-07] MEDS: amLODIPine BESYLATE 5 MG TAB PO SCH (10:00)
[2020-02-07] MEDS: fentaNYL Drip 2500mCg/250mlNS 250 ML IV SCH (10:18)
[2020-02-07] MEDS: FAMOTIDINE 20 MG TAB PO SCH ×2 (10:23→21:48)
[2020-02-07] MEDS: ASCORBIC ACID 1,000 MG TAB PO SCH ×2 (10:23→21:49)
[2020-02-07] MEDS: THIAMINE 100mg/ml INJ (200mg/2ml VIAL) IV SCH (10:23)
[2020-02-07] MEDS: ZINC SULFATE 220mg CAP or TAB PO SCH (10:23)
[2020-02-07] MEDS: CHOLECALCIFEROL (VITD3) 2,000 UNIT CAP PO SCH (10:23)
[2020-02-07] MEDS: DexAMETHasone SOD PHOS 4 MG/1ML SDV INJ IV SCH (10:23)
[2020-02-07] MEDS: ENOXAPARIN SOD 40 MG/0.4 ML SYRINGE SC SCH (10:23)
[2020-02-07] MEDS ORDERED: POTASSIUM CHL 20MEQ/100ML 100 ML IV ONE (10:30)
[2020-02-07] MEDS: MAGNESIUM SULFATE 1GM/100ML 100 ML IV SCH ×2 (11:15→12:45)
[2020-02-07] MEDS: NOREPINEPHRINE 8 MG/250ML KIT 250 ML IV SCH (13:34)
--- NOTE | 2020-02-07 13:56 | NUR ---
Dr. Pink was in at 1246. Discussed condition and plan of care. Made him aware that today's Covid-19 test is still negative. Repeat chest xray was done. In am 0631 chest xray could not rule out small right side pneumothorax. Chest x ray done at 1317 confirmed no pneumothorax. Continue with current plan of care. Dr. St rv repair technician rounded earlier today.
--- NOTE | 2020-02-07 15:13 | NUR ---
No sedation vacation today. Continues to requiring a peep of 10 on ventilator.
--- NOTE | 2020-02-07 19:17 | NUR ---
Report given to Serjio HOYT who will resume care.
--- NOTE | 2020-02-07 20:55 | NUR ---
SPOKE TO ARCADIO (SON) REGARDING PATIENTS POC AND STATUS, ALL QUESTIONS AND CONCERNS ADDRESSED.
--- NOTE | 2020-02-07 22:00 | NUR ---
No sedation vacation today. Continues to requiring a peep of 10 on ventilator.
[2020-02-08] VITALS (99 sets, daily range): BP systolic 72–135; BP diastolic 37–82
[2020-02-08] MEDS: InsuLIN REG 1unit/0.01ml Soln (100units/ml) SC SCH ×4 (00:33→18:07)
[2020-02-08] MEDS: fentaNYL Drip 2500mCg/250mlNS 250 ML IV SCH ×2 (01:37→19:11)
[2020-02-08 04:33] LABS: Basophils # (auto) 0 10 ^3/uL (0-0.2); Basophils % (auto) 0.3 % (0.0-2.0); Eosinophils # (auto) 0.1 10 ^3/uL (0-0.8); Hemoglobin 13.4 g/dL (13.5-17.5); Lymphocytes # (auto) 0.5 10 ^3/uL (0.4-5.4); Mean Corpuscular Hemoglobin 26.4 pg (28.0-32.0); Monocytes # (auto) 0.4 10 ^3/uL (0-1.3); Neutrophils # (auto) 4.8 10 ^3/uL (1.6-8.6); White Blood Cell 5.8 10^3/uL (4.4-10.8)
[2020-02-08 04:35] LABS: Eosinophils % (auto) 1.4 % (0.0-7.0); Hematocrit 40.3 % (41.0-53.0); Lymphocytes % (auto) 8.4 % (10.0-50.0); Mean Corpuscular Hgb Conc. 33.1 g/dL (32.0-36.0); Mean Corpuscular Volume 79.6 fL (80.0-100.0); Monocytes % (auto) 7.4 % (0.0-12.0); Neutrophils % (auto) 82.5 % (37.0-80.0); Nucleated Red Blood Cells % 0.1 %; Platelet Count (auto) 182 10^3/uL (140-450); Red Blood Cells 5.06 10^6/uL (4.5-5.90); Red Cell Distribution Width 16.5 % (11.8-14.3)
[2020-02-08 04:53] LABS: Albumin 1.9 g/dL (3.4-5.0); Calcium 8.1 mg/dL (8.5-10.1); Magnesium 1.9 mg/dL (1.6-2.6)
[2020-02-08] MEDS: PROPOFOL 100 ML IV SCH ×2 (05:00→22:00)
[2020-02-08 05:03] LABS: BUN/Creatinine Ratio 32.6; Bilirubin, Direct 0.7 mg/dL (0-0.2); CRP High Sensitivity 11.6 mg/dL (< 0.3); INR 1.05 (0.9-1.15); Partial Thromboplastin Time 24.3 sec (23.0-31.2)
[2020-02-08 05:14] LABS: Potassium 2.9 mmol/L (3.5-5.1)
--- NOTE | 2020-02-08 05:26 | NUR ---
DANIELLE NOLASCO REGARDING LOW K 2.9 FOR NOW I WILL HOLD 0600 ROSARIO PATINO MD
[2020-02-08] MEDS: FUROSEMIDE 40 MG/4 ML VIAL IV SCH (06:00)
[2020-02-08] MEDS: MIDAZOLAM DRIP 50 mg/50mL 50 ML IV SCH ×2 (06:00→19:12)
--- NOTE | 2020-02-08 06:00 | NUR ---
COOLING MEASURES, TEMP 99.9 F APPLIED ICE PACKS BILATERAL AXILLA. ICE PACK TO ABDOMEN.
[2020-02-08] MEDS: ACCU-CHEK COMFORT CURVE STRIP VI SCH ×4 (06:08→18:07)
[2020-02-08] MEDS: INSULIN LANTUS (GLARGINE) 1 /0.01ml (100units/ml) SC SCH (06:10)
[2020-02-08] MEDS: ALBUTEROL SULF 2.5 MG/0.5ML(0.5%) NEB SOLN NEB SCH ×3 (06:13→22:21)
--- NOTE | 2020-02-08 08:00 | NUR ---
PAGED DR RUDOLPH REGARDING CRITICAL LAB VALUE: K 2.9
--- NOTE | 2020-02-08 08:33 | NUR ---
SPOKE WITH DR RUDOLPH RECEIVED NEW ORDERS
--- NOTE | 2020-02-08 09:15 | NUR ---
DR KAPADIA AT BEDSIDE DISCUSSED PATIENTS STATUS AND PLAN OF CARE. RECEIVED NEW ORDERS
--- NOTE | 2020-02-08 09:30 | NUR ---
SEDATION VACATION HELD- NOT APPROPRIATE DUE TO RESPIRATORY VENTILATOR DEMANDS Addendum: 02/08/20 at 1143 by Annabella Watt RN Amended: Links added.
[2020-02-08] MEDS: THIAMINE 100mg/ml INJ (200mg/2ml VIAL) IV SCH (10:00)
[2020-02-08] MEDS: POTASSIUM CHL 20MEQ/100ML 100 ML IV SCH ×2 (10:00→13:59)
[2020-02-08] MEDS: amLODIPine BESYLATE 5 MG TAB PO SCH (10:00)
[2020-02-08] MEDS: FAMOTIDINE 20 MG TAB PO SCH ×2 (10:00→21:59)
--- NOTE | 2020-02-08 10:00 | NUR ---
TEMPERATURE PATIENTS RECTAL TEMPERATURE ELEVATED. COOLING MEASURE APPLIED AND COOLING BLANKET. WILL CONTINUE TO MONITOR
[2020-02-08] MEDS: CHOLECALCIFEROL (VITD3) 2,000 UNIT CAP PO SCH (10:10)
[2020-02-08] MEDS: DexAMETHasone SOD PHOS 4 MG/1ML SDV INJ IV SCH (10:10)
[2020-02-08] MEDS: ASCORBIC ACID 1,000 MG TAB PO SCH ×2 (10:10→21:59)
[2020-02-08] MEDS: ZINC SULFATE 220mg CAP or TAB PO SCH (10:10)
[2020-02-08] MEDS: ENOXAPARIN SOD 40 MG/0.4 ML SYRINGE SC SCH (10:10)
--- NOTE | 2020-02-08 10:56 | NUR ---
DR RUDOLPH AT BEDSIDE DISCUSSED PATIENTS PLAN OF CARE, NEW ORDERS PLACED
--- NOTE | 2020-02-08 12:26 | NUR ---
Nutrition Followup Notes Wt 78.0 kg Pt is covid positive, with RN ar bedside when rounded this morning. Pt is intubated and sedated with propofol running at 20.684 ml/hr providing 546 kcal from lipids. Pt sedation vacation cancelled d/t pt respiratory requirements per RN doc. Pt with EN nutrition support suspended for now. Will continue to monitor PO status, skin status, pertinent labs and weight trends. Will f/u in 2-3 days Est Energy needs BW 65 [id number] kcals (25-30 kcal/kgBW), Est Protein needs: 65-78 gms/day (1.0-1.2 gm/kgBW). Will continue to monitor and reassess prn. Rec: EN support with Glucerna @ 40 ml/hr goal rate at current rate of propofol per MD approval Labs: K 2.9 L, Ca 8.1 L, Alb 1.9 L BM: Pt with no recorded BMs, last BM unknown per RN note Skin: BS 11 high risk, skin intact, full details in children's zoo caretaker note PES; 1) Altered nutrition related lab values r.t current chronic medical condition aeb elev BUN hyperglycemia, mod hypoalb 2) Impaired swallowing r.t current medical condition aeb pt`s intubated sedated with order of NPO Comments: 1) consider EN support with Glucerna @ 40 ml/hr per MD approval at current rate of propofol 2) advanced diet as medically feasible 3) refer to CDE on DC 4) continue current plan of care
[2020-02-08] MEDS: NOREPINEPHRINE 8 MG/250ML KIT 250 ML IV SCH (12:52)
--- NOTE | 2020-02-08 14:49 | NUR ---
D/C Planning Regarding social service consult for keno terminal operator care. Placed call to ABHINAV Quezada with [facility] this morning regarding order to transfer to [facility] care after trach and peg. Per ABHINAV Quezada when patient is clear to transfer they will review order and proceed with transfer request.
--- NOTE | 2020-02-08 15:03 | NUR ---
ATTEMPTED TO SPEAK WITH PATIENTS SON AND DAUGHTER TO OBTAIN CONSENT FOR RESMESIVIR, AWAITING RETURN CALL
--- NOTE | 2020-02-08 15:27 | NUR ---
RECEIVED CONSENT FOR REMDESIVIR- CONSENT SENT TO PHARMACY RECEIVED CONSENT FROM DAUGHTER MAHAMED YANG, 2 RNS VERIFIED.
[2020-02-08] MEDS ORDERED: REMDESIVIR 200 MG in NS 210ml LOADING DOSE ADULT IV ONE (20:00)
--- NOTE | 2020-02-08 21:24 | NUR ---
SPOKE TO MAHAMED (SON) UPDATED ON PATIENTS STATUS AND POC, ALL QUESTIONS AND CONCERNS ADDRESSED.
--- NOTE | 2020-02-08 22:25 | NUR ---
NO SEDATION VACATION HIGH PEEP Addendum: 02/08/20 at 2226 by LUIS MANUEL KEITH RN RN Amended: Links added.
[2020-02-09] VITALS (98 sets, daily range): BP systolic 76–165; BP diastolic 42–93
[2020-02-09] MEDS: Glucerna 1.2 Cal 1Liter BOTTLE GT SCH (00:10)
--- NOTE | 2020-02-09 00:10 | NUR ---
STARTED FEEDING STARTED AT 10 CC/HR HOB 35 DEGREES
--- NOTE | 2020-02-09 00:22 | NUR ---
NOTIFIED RT OF LOW SP02 PATIENT MAINTAINING SPO2 AT 88% AFTER REPOSITIONING. SUCTIONING ETT TUBE DID NOT IMPROVE OXYGENATION.
--- NOTE | 2020-02-09 00:47 | NUR ---
FIO2 INCREASED TO .40
[2020-02-09] MEDS: MIDAZOLAM DRIP 50 mg/50mL 50 ML IV SCH ×3 (00:58→22:33)
--- NOTE | 2020-02-09 03:15 | NUR ---
COOLING MEASURES PT IS ON COOLING BLANKET
[2020-02-09 04:32] LABS: Basophils # (auto) 0 10 ^3/uL (0-0.2); Basophils % (auto) 0.9 % (0.0-2.0); Eosinophils # (auto) 0.2 10 ^3/uL (0-0.8); Eosinophils % (auto) 5.2 % (0.0-7.0); Hematocrit 40.9 % (41.0-53.0); Hemoglobin 13.3 g/dL (13.5-17.5); Lymphocytes # (auto) 0.6 10 ^3/uL (0.4-5.4); Lymphocytes % (auto) 11.8 % (10.0-50.0); Mean Corpuscular Hemoglobin 25.8 pg (28.0-32.0); Mean Corpuscular Hgb Conc. 32.5 g/dL (32.0-36.0); Mean Corpuscular Volume 79.5 fL (80.0-100.0); Monocytes # (auto) 0.3 10 ^3/uL (0-1.3); Monocytes % (auto) 6.3 % (0.0-12.0); Neutrophils # (auto) 3.6 10 ^3/uL (1.6-8.6); Neutrophils % (auto) 75.8 % (37.0-80.0); Platelet Count (auto) 189 10^3/uL (140-450); Red Blood Cells 5.14 10^6/uL (4.5-5.90); Red Cell Distribution Width 16.7 % (11.8-14.3); White Blood Cell 4.8 10^3/uL (4.4-10.8)
[2020-02-09 04:50] LABS: Albumin 1.9 g/dL (3.4-5.0); Calcium 7.6 mg/dL (8.5-10.1); Potassium 3.4 mmol/L (3.5-5.1)
[2020-02-09 04:59] LABS: BUN/Creatinine Ratio 31.6; CRP High Sensitivity 10.8 mg/dL (< 0.3); Total Protein 5.9 g/dL (6.4-8.2)
--- NOTE | 2020-02-09 05:31 | NUR ---
COOLING MEASUES ADDED SECOND COOLING BLANKET ON TOP HOLDING TYLENOL - RESIDUAL 65 CC
--- NOTE | 2020-02-09 05:45 | NUR ---
RT AWARE OF LOW SPO2
--- NOTE | 2020-02-09 05:50 | NUR ---
RT AT BEDSIDE
[2020-02-09] MEDS: InsuLIN REG 1unit/0.01ml Soln (100units/ml) SC SCH ×4 (06:00→18:00)
--- NOTE | 2020-02-09 06:00 | NUR ---
COOLING MEASURES APPLIED ICE PACKS BILATERAL AXILLA AND BEHIND NECK.
[2020-02-09] MEDS: PROPOFOL 100 ML IV SCH ×3 (06:10→22:33)
[2020-02-09] MEDS: ACCU-CHEK COMFORT CURVE STRIP VI SCH ×4 (06:13→18:24)
[2020-02-09] MEDS: INSULIN LANTUS (GLARGINE) 1 /0.01ml (100units/ml) SC SCH (06:14)
--- NOTE | 2020-02-09 06:20 | NUR ---
DANIELLE NOLASCO REGARDING LOW K LEFT VOICE MESSAGE
[2020-02-09] MEDS: fentaNYL Drip 2500mCg/250mlNS 250 ML IV SCH (06:45)
[2020-02-09] MEDS ORDERED: SODIUM CHLORIDE 0.9 % NEB SOLN 3ML NEB ONE ×2 (07:01→12:36)
[2020-02-09] MEDS: THIAMINE 100mg/ml INJ (200mg/2ml VIAL) IV SCH (09:24)
[2020-02-09] MEDS: ASCORBIC ACID 1,000 MG TAB PO SCH ×2 (09:25→22:32)
[2020-02-09] MEDS: amLODIPine BESYLATE 5 MG TAB PO SCH (09:25)
[2020-02-09] MEDS: ENOXAPARIN SOD 40 MG/0.4 ML SYRINGE SC SCH ×2 (09:25→22:32)
[2020-02-09] MEDS: CHOLECALCIFEROL (VITD3) 2,000 UNIT CAP PO SCH (09:25)
[2020-02-09] MEDS: ZINC SULFATE 220mg CAP or TAB PO SCH (09:25)
[2020-02-09] MEDS: FAMOTIDINE 20 MG TAB PO SCH ×2 (09:25→22:32)
--- NOTE | 2020-02-09 09:30 | NUR ---
DR KAPADIA AT BEDSIDE
[2020-02-09] MEDS: DexAMETHasone SOD PHOS 4 MG/1ML SDV INJ IV SCH (09:35)
[2020-02-09] MEDS: ALBUTEROL SULF 2.5 MG/0.5ML(0.5%) NEB SOLN NEB SCH ×2 (12:50→22:30)
--- NOTE | 2020-02-09 14:00 | NUR ---
UPDATE GIVEN TO SON OVER PHONE AFTER PASSWORD OBTAINED
[2020-02-09] MEDS: NOREPINEPHRINE 8 MG/250ML KIT 250 ML IV SCH (14:53)
--- NOTE | 2020-02-09 15:21 | NUR ---
DR RUDOLPH AT BEDSIDE DR AWARE OF POTASSIUM LEVEL THIS AM. GAVE ORDER FOR POTASSIUM 40 MEQ IV RIDER ONCE.
[2020-02-09] MEDS: POTASSIUM CHL 20MEQ/100ML 100 ML IV SCH ×2 (17:00→17:30)
--- NOTE | 2020-02-09 19:30 | NUR ---
REPORT GIVEN TO CONSULTING PSYCHOLOGIST RN
--- NOTE | 2020-02-09 20:00 | NUR ---
CONTINUING FEEDING RESIDUAL 40CC RATE 20CC/HR
[2020-02-09] MEDS: REMDESIVIR 100mg in NS 230ml DAILYx4DAYS (NO VENT) IV SCH (20:30)
--- NOTE | 2020-02-09 22:49 | NUR ---
NO SEDATION VACATION PEEP AND FIO2 IS HIGH. Addendum: 02/09/20 at 2250 by LUIS MANUEL KEITH RN RN Amended: Links added.
[2020-02-10] VITALS (97 sets, daily range): BP systolic 81–147; BP diastolic 42–73
--- NOTE | 2020-02-10 00:02 | NUR ---
HOLDING FEEDING RESIDUAL 65 CC FEEDING WAS RUNNING AT 20 CC/HR
--- NOTE | 2020-02-10 03:00 | NUR ---
CHANGED CENTRAL LINE DRESSING AREA CLEANED USING STERILE TECHNIQUE WITH CHLORAPREP APPLICATOR, BIO DISK AND TRANSDERM APPLIED. SKIN INTACT, NO SIGN OF BLEEDING OR DISCHARGE, NO REDNESS OR IRRITATION OF SKIN NOTED. PATIENT TOLERATED CARE WELL.
[2020-02-10] MEDS: MIDAZOLAM DRIP 50 mg/50mL 50 ML IV SCH ×5 (03:10→23:50)
[2020-02-10] MEDS: PROPOFOL 100 ML IV SCH ×4 (03:30→20:50)
[2020-02-10 03:38] LABS: Albumin 1.9 g/dL (3.4-5.0); Calcium 7.7 mg/dL (8.5-10.1); Potassium 3.5 mmol/L (3.5-5.1)
[2020-02-10 03:41] LABS: BUN/Creatinine Ratio 23.1; Total Protein 5.9 g/dL (6.4-8.2)
[2020-02-10] MEDS: fentaNYL Drip 2500mCg/250mlNS 250 ML IV SCH (05:01)
[2020-02-10] MEDS: ALBUTEROL SULF 2.5 MG/0.5ML(0.5%) NEB SOLN NEB SCH ×3 (06:09→22:28)
[2020-02-10] MEDS: ACCU-CHEK COMFORT CURVE STRIP VI SCH ×4 (06:18→18:19)
[2020-02-10] MEDS: InsuLIN REG 1unit/0.01ml Soln (100units/ml) SC SCH ×4 (06:19→18:00)
[2020-02-10] MEDS: INSULIN LANTUS (GLARGINE) 1 /0.01ml (100units/ml) SC SCH (06:20)
[2020-02-10] MEDS: THIAMINE 100mg/ml INJ (200mg/2ml VIAL) IV SCH (10:00)
[2020-02-10] MEDS: DexAMETHasone SOD PHOS 4 MG/1ML SDV INJ IV SCH (11:15)
[2020-02-10] MEDS: ZINC SULFATE 220mg CAP or TAB PO SCH (11:19)
[2020-02-10] MEDS: ENOXAPARIN SOD 40 MG/0.4 ML SYRINGE SC SCH ×2 (11:25→22:00)
[2020-02-10] MEDS: CHOLECALCIFEROL (VITD3) 2,000 UNIT CAP PO SCH (11:28)
[2020-02-10] MEDS: ASCORBIC ACID 1,000 MG TAB PO SCH ×2 (11:29→22:00)
[2020-02-10] MEDS: amLODIPine BESYLATE 5 MG TAB PO SCH (11:32)
[2020-02-10] MEDS: FAMOTIDINE 20 MG TAB PO SCH ×2 (11:32→22:00)
--- NOTE | 2020-02-10 12:05 | NUR ---
Nutrition Followup Notes Wt 78.0 kg Pt is covid positive, with RN ar bedside when rounded this morning. Pt is intubated and sedated with propofol running at 20.684 ml/hr providing 546 kcal from lipids. Pt`s off EN support due to high residuals per RN. Will continue to monitor PO status, skin status, pertinent labs and weight trends. Will f/u in 2-3 days Est Energy needs BW 65 [id number] kcals (25-30 kcal/kgBW), Est Protein needs: 65-78 gms/day (1.0-1.2 gm/kgBW). Will continue to monitor and reassess prn. Labs: CO2 35 H, GLU 137 H CA 7.9 L, BM: Pt with no recorded BMs, last BM unknown per RN note Skin: BS 11 high risk, skin intact, full details in long term care social worker note PES; 1) Altered nutrition related lab values r.t current chronic medical condition aeb elev BUN hyperglycemia, mod hypoalb 2) Impaired swallowing r.t current medical condition aeb pt`s intubated sedated with order of NPO Comments: F/u high 2-3 days 1) consider EN support with Glucerna @ 40 ml/hr per MD approval at current rate of propofol 2) advanced diet as medically feasible 3) refer to CDE on DC 4) continue current plan of care
[2020-02-10] MEDS: NOREPINEPHRINE 8 MG/250ML KIT 250 ML IV SCH (12:52)
--- NOTE | 2020-02-10 19:00 | NUR ---
Report received from LAI Wolf. Patient intubated with ETT 8.0 at 24 CM L/L. Vent settings: AC 16, Vt 450, FiO2 60%, PEEP 5. IVF: Fentanyl drip infusion at 175 mcg/hr; Versed drip infusion at 14 mg/hr; Propofol drip infusion at 40 mcg/kg/min; and Levophed drip infusion at 4 mcg/min. Will continue with POC; and, will continue to monitor VS, focus on BP, RASS -3, and, clinical status.
[2020-02-10] MEDS: REMDESIVIR 100mg in NS 230ml DAILYx4DAYS (NO VENT) IV SCH (19:01)
--- NOTE | 2020-02-10 20:50 | NUR ---
Propofol drip changed to new bottle.
--- NOTE | 2020-02-10 22:00 | NUR ---
Rtn scheduled medication given. See e-MAR.
--- NOTE | 2020-02-10 23:50 | NUR ---
Versed drip changed to new bag.
[2020-02-11] VITALS (90 sets, daily range): BP systolic 80–157; BP diastolic 44–75
--- NOTE | 2020-02-11 | NUR ---
Accucheck 172 mg/dl. Patient covered with Regular Insulin 2 units SQ.
[2020-02-11] MEDS: ACCU-CHEK COMFORT CURVE STRIP VI SCH ×4 (00:28→18:24)
[2020-02-11] MEDS: InsuLIN REG 1unit/0.01ml Soln (100units/ml) SC SCH ×4 (00:30→18:00)
--- NOTE | 2020-02-11 02:15 | NUR ---
Levophed drip decrease to 2.997 mcg/min due to BP 120/61.
[2020-02-11] MEDS: PROPOFOL 100 ML IV SCH (02:34)
--- NOTE | 2020-02-11 02:34 | NUR ---
Propofol drip changed to new bottle.
[2020-02-11] MEDS: MIDAZOLAM DRIP 50 mg/50mL 50 ML IV SCH ×2 (02:59→20:36)
--- NOTE | 2020-02-11 02:59 | NUR ---
Versed drip changed to new bag.
--- NOTE | 2020-02-11 03:50 | NUR ---
Servicenow Administrator Developer collected AM Blood from CVC TLC RI. Specimen given to Transmission And Protection Engineer and sent to lab.
--- NOTE | 2020-02-11 04:00 | NUR ---
Levophed drip increase to 4 mcg/min due to BP 80/44.
[2020-02-11 04:21] LABS: Basophils # (auto) 0 10 ^3/uL (0-0.2); Eosinophils # (auto) 0 10 ^3/uL (0-0.8); Lymphocytes # (auto) 0.8 10 ^3/uL (0.4-5.4); Mean Corpuscular Hemoglobin 25.8 pg (28.0-32.0); Mean Corpuscular Hgb Conc. 32.6 g/dL (32.0-36.0); Monocytes # (auto) 0.4 10 ^3/uL (0-1.3); Nucleated Red Blood Cells % 0.2 %; Red Blood Cells 4.94 10^6/uL (4.5-5.90); White Blood Cell 6.2 10^3/uL (4.4-10.8)
[2020-02-11 04:24] LABS: Basophils % (auto) 0.3 % (0.0-2.0); Eosinophils % (auto) 0.4 % (0.0-7.0); Hemoglobin 12.7 g/dL (13.5-17.5); Lymphocytes % (auto) 13.7 % (10.0-50.0); Monocytes % (auto) 7.1 % (0.0-12.0); Neutrophils # (auto) 4.8 10 ^3/uL (1.6-8.6); Neutrophils % (auto) 78.5 % (37.0-80.0); Platelet Count (auto) 234 10^3/uL (140-450); Red Cell Distribution Width 16.2 % (11.8-14.3)
[2020-02-11 04:43] LABS: Potassium 3.8 mmol/L (3.5-5.1)
[2020-02-11 04:47] LABS: Albumin 1.7 g/dL (3.4-5.0); BUN/Creatinine Ratio 20.6; Calcium 7.7 mg/dL (8.5-10.1); Magnesium 1.7 mg/dL (1.6-2.6)
--- NOTE | 2020-02-11 04:55 | NUR ---
Levophed drip decrease to 2.997 mcg/min due to BP 157/74.
[2020-02-11 04:56] LABS: Bilirubin, Total 0.8 mg/dL (0.2-1.0); CRP High Sensitivity 11.4 mg/dL (< 0.3); Phosphorus 2.2 mg/dL (2.5-4.90); Total Protein 5.8 g/dL (6.4-8.2)
--- NOTE | 2020-02-11 05:10 | NUR ---
Patient given bedbath. Partial linen change done.
--- NOTE | 2020-02-11 05:55 | NUR ---
Accucheck 126 mg/dl. No coverage required.
[2020-02-11] MEDS: ALBUTEROL SULF 2.5 MG/0.5ML(0.5%) NEB SOLN NEB SCH ×3 (06:41→22:13)
[2020-02-11] MEDS: INSULIN LANTUS (GLARGINE) 1 /0.01ml (100units/ml) SC SCH (06:58)
[2020-02-11] MEDS: fentaNYL Drip 2500mCg/250mlNS 250 ML IV SCH (07:07)
--- NOTE | 2020-02-11 07:07 | NUR ---
Fentanyl drip changed to new bag.
[2020-02-11] MEDS: THIAMINE 100mg/ml INJ (200mg/2ml VIAL) IV SCH (10:00)
[2020-02-11] MEDS: NOREPINEPHRINE 8 MG/250ML KIT 250 ML IV SCH (12:52)
[2020-02-11] MEDS: DexAMETHasone SOD PHOS 4 MG/1ML SDV INJ IV SCH (13:22)
[2020-02-11] MEDS: ZINC SULFATE 220mg CAP or TAB PO SCH (13:23)
[2020-02-11] MEDS: ENOXAPARIN SOD 40 MG/0.4 ML SYRINGE SC SCH ×2 (13:24→22:00)
[2020-02-11] MEDS: amLODIPine BESYLATE 5 MG TAB PO SCH (13:24)
[2020-02-11] MEDS: ASCORBIC ACID 1,000 MG TAB PO SCH ×2 (13:25→22:00)
[2020-02-11] MEDS: FAMOTIDINE 20 MG TAB PO SCH ×2 (13:25→22:00)
[2020-02-11] MEDS: CHOLECALCIFEROL (VITD3) 2,000 UNIT CAP PO SCH (13:25)
[2020-02-11] MEDS: REMDESIVIR 100mg in NS 230ml DAILYx4DAYS (NO VENT) IV SCH (20:07)
[2020-02-12] VITALS (76 sets, daily range): BP systolic 88–165; BP diastolic 48–80
[2020-02-12] MEDS: NOREPINEPHRINE 8 MG/250ML KIT 250 ML IV SCH
[2020-02-12] MEDS: MIDAZOLAM DRIP 50 mg/50mL 50 ML IV SCH ×4 (02:50→18:08)
[2020-02-12] MEDS: PROPOFOL 100 ML IV SCH ×4 (03:44→15:15)
--- NOTE | 2020-02-12 03:45 | NUR ---
CHG bath given. Oral care given. Pt tolerating vent. No distress observed. Will continue to monitor.
[2020-02-12] MEDS: InsuLIN REG 1unit/0.01ml Soln (100units/ml) SC SCH ×5 (06:00→23:57)
[2020-02-12] MEDS: ACCU-CHEK COMFORT CURVE STRIP VI SCH ×5 (06:00→23:59)
[2020-02-12] MEDS: ALBUTEROL SULF 2.5 MG/0.5ML(0.5%) NEB SOLN NEB SCH ×3 (06:35→22:21)
--- NOTE | 2020-02-12 06:35 | NUR ---
Respiratory note: PT RECEIVED ON VENT #V2, PLUGGED INTO A RED OUTLET AND PROPER O2 SOURCE. AMBU BAG/MASK AT BEDSIDE. ALARMS ARE PROPERLY SET, FUNCTIONING,AND AUDIBLE. ETT SECURED WITH A HOLISTER. SKIN IS COOL AND DRY TO THE TOUCH WITH EDEMA NOTED BILATERALLY ON THE LOWER EXTREMITIES. BILATERAL BS ARE CLEAR. SX WITH SCANT RETURN. MED NEB TX GIVEN INLINE,TOLERATED WELL. POC:MAINTAIN ADEQUATE OXYGENATION,VENTILATION,AND PULMONARY HYGIENE.
[2020-02-12] MEDS: amLODIPine BESYLATE 5 MG TAB PO SCH (10:00)
[2020-02-12] MEDS: FAMOTIDINE 20 MG TAB PO SCH ×2 (10:05→21:33)
[2020-02-12] MEDS: ASCORBIC ACID 1,000 MG TAB PO SCH ×2 (10:05→21:33)
[2020-02-12] MEDS: CHOLECALCIFEROL (VITD3) 2,000 UNIT CAP PO SCH (10:05)
[2020-02-12] MEDS: ZINC SULFATE 220mg CAP or TAB PO SCH (10:05)
[2020-02-12] MEDS: THIAMINE 100mg/ml INJ (200mg/2ml VIAL) IV SCH (10:06)
[2020-02-12] MEDS: DexAMETHasone SOD PHOS 4 MG/1ML SDV INJ IV SCH (10:06)
[2020-02-12] MEDS: ENOXAPARIN SOD 40 MG/0.4 ML SYRINGE SC SCH ×2 (10:07→21:33)
--- NOTE | 2020-02-12 10:25 | NUR ---
Respiratory note: PEEP CHANGED TO [address] BROWNLEE ORDER. LAI ANGULO AT BEDSIDE. ABG IN ONE HOUR.
--- NOTE | 2020-02-12 10:30 | NUR ---
HOSPITALIST/PULMONOLOGY AT BEDSIDE UPDATED ON PATIENT'S STATUS - ORDERS GIVEN TO Pat RUEDA. NO ORDERS RECEIVED FROM DR RUDOLPH.
[2020-02-12] MEDS: INSULIN LANTUS (GLARGINE) 1 /0.01ml (100units/ml) SC SCH (10:35)
[2020-02-12] MEDS: fentaNYL Drip 2500mCg/250mlNS 250 ML IV SCH (11:39)
--- NOTE | 2020-02-12 12:13 | NUR ---
Nutrition Followup Notes Wt 78.2 kg Pt is covid positive, with RN ar bedside when rounded this morning. Pt is intubated and sedated with propofol running at 15.12 ml/hr providing 399 kcal from lipids. Pt`s off EN support due to high residuals, but will restart today at 10 ml/hr to test pt tolerance per RN. Will continue to monitor PO status, skin status, pertinent labs and weight trends. Will f/u in 2-3 days Est Energy needs BW 65 [id number] kcals (25-30 kcal/kgBW), Est Protein needs: 65-78 gms/day (1.0-1.2 gm/kgBW). Will continue to monitor and reassess prn. Labs: GLU 117 H Alb 1.7 L BM: Pt with no recorded BMs, last BM unknown per RN note Skin: BS 13 mod risk, skin intact, full details in director of home care hospice note PES; 1) Altered nutrition related lab values r.t current chronic medical condition aeb elev BUN hyperglycemia, mod hypoalb 2) Impaired swallowing r.t current medical condition aeb pt`s intubated sedated with order of NPO Comments: F/u high 2-3 days 1) consider EN support with Glucerna @ 40 ml/hr per MD approval at current rate of propofol 2) advanced diet as medically feasible 3) refer to CDE on DC 4) continue current plan of care
[2020-02-12] MEDS: Glucerna 1.2 Cal 1Liter BOTTLE GT SCH (15:15)
--- NOTE | 2020-02-12 15:15 | NUR ---
CENTRAL LINE DRESSING CHANGED RIGHT IJ CENTRAL LINE DRESSING CHANGED VIA STERILE TECHNIQUE.
[2020-02-12] MEDS ORDERED: REMDESIVIR 100mg in NS 230ml DAILYx4DAYS (NO VENT) IV SCH (17:00)
--- NOTE | 2020-02-12 20:30 | NUR ---
son salas called spoke to him and updated patient condition happy with the updates will call back again tomorrow.
--- NOTE | 2020-02-12 21:00 | NUR ---
2100 no sedation vacation at this time still covid positive were not weaning any parameters so far. Addendum: 02/12/20 at 2116 by MARCIAL ROSA RN RN Amended: Links added.
--- NOTE | 2020-02-12 23:25 | NUR ---
pt desaturating to 88-89% after sedation starts to wear off while sedation turn down dose as patient was bradycardic 42-43 and unresponsive,paged RT and came to increase Fio2-60% sedation increase a little bit.
[2020-02-13] VITALS (91 sets, daily range): BP systolic 79–139; BP diastolic 29–85
[2020-02-13] MEDS: fentaNYL Drip 2500mCg/250mlNS 250 ML IV SCH (03:43)
[2020-02-13] MEDS: MIDAZOLAM DRIP 50 mg/50mL 50 ML IV SCH (03:44)
[2020-02-13] MEDS: InsuLIN REG 1unit/0.01ml Soln (100units/ml) SC SCH ×3 (06:00→16:22)
[2020-02-13] MEDS: PROPOFOL 100 ML IV SCH ×2 (06:01→09:38)
[2020-02-13] MEDS: INSULIN LANTUS (GLARGINE) 1 /0.01ml (100units/ml) SC SCH (06:02)
[2020-02-13] MEDS: ACCU-CHEK COMFORT CURVE STRIP VI SCH ×3 (06:02→16:21)
--- NOTE | 2020-02-13 06:30 | NUR ---
INCREASED FIO2 70% At bedside for initial assessment. Pt began to desat with SPO2 85%. Increased FIO2 to 70%. Pt with increased HR 125, RR 31, temp 95.2F. Notified RN, requested to check pt's sedation. ABG drawn, results to follow. Will continue to monitor.
[2020-02-13] MEDS: ALBUTEROL SULF 2.5 MG/0.5ML(0.5%) NEB SOLN NEB SCH ×3 (06:32→22:11)
--- NOTE | 2020-02-13 06:55 | NUR ---
INCREASED FIO2 100% Pt continued to desat to 84-87%, increased FIO2 to 100%. SPO2 currently at 91%.
--- NOTE | 2020-02-13 07:38 | NUR ---
OPENING SHIFT NOTE REPORT RECEIVED FROM DOOR SLINGER RN, MORNING ASSESSMENT ROUNDING PERFORMED WITH DOOR SLINGER RN. PATIENT APPEARS UNSTABLE, HEART RATE IN THE 130'S, RR 30'S, SATURATIONS 85% ON 100% FIO2 WITH NOTED INCREASED WORK OF BREATHING. PER DOOR SLINGER RN, PROPOFOL WAS STOPPED DURING AND VERSED/FENTANYL DECREASED DURING DOOR SLINGER. PER RN, "R.T. WENT IN THIS MORNING TO ASSESS PATIENT WHEN PATIENT'S VITAL SIGNS BECAME UNSTABLE REQUIRING R.T. TO INCREASED FIO2 TO 100%". DOOR SLINGER RN RE-STARTED SEDATION AND WILL MONITOR PATIENT AND NOTIFY MD IF UNABLE TO STABILIZE. CURRENT CORE TEMPERATURE PRIOR TO SHIFT CHANGE IS 95.2 - WILL BEGIN WARMING MEASURES AND CONTINUE TO MONITOR PATIENT.
[2020-02-13] MEDS: DexAMETHasone SOD PHOS 4 MG/1ML SDV INJ IV SCH (09:35)
[2020-02-13] MEDS: amLODIPine BESYLATE 5 MG TAB PO SCH (09:35)
[2020-02-13] MEDS: THIAMINE 100mg/ml INJ (200mg/2ml VIAL) IV SCH (09:35)
[2020-02-13] MEDS: ZINC SULFATE 220mg CAP or TAB PO SCH (09:35)
[2020-02-13] MEDS: ASCORBIC ACID 1,000 MG TAB PO SCH ×2 (09:36→21:18)
[2020-02-13] MEDS: FAMOTIDINE 20 MG TAB PO SCH ×2 (09:36→21:17)
[2020-02-13] MEDS: ENOXAPARIN SOD 40 MG/0.4 ML SYRINGE SC SCH ×2 (09:37→21:18)
[2020-02-13] MEDS: CHOLECALCIFEROL (VITD3) 2,000 UNIT CAP PO SCH (09:37)
--- NOTE | 2020-02-13 10:38 | NUR ---
TITRATED FIO2 DOWN TO 55% Pt appears to be tolerating ventilator better now, vital signs stable. Titrated fio2 down to 55%, SPO2 maintaining at 96%. No s/s of distress.
[2020-02-13] MEDS: NOREPINEPHRINE 8 MG/250ML KIT 250 ML IV SCH (12:19)
--- NOTE | 2020-02-13 14:40 | NUR ---
Family updated on pt status Family of SEKOU URRUTIA updated on patient's status and condition after password verification. All questions and concerns addressed. Chris patient's son verbalized understanding.
--- NOTE | 2020-02-13 15:10 | NUR ---
WOUND CARE NOTE: Wound care in to see patient for weekly reevaluation of wounds and skin integrity monitoring. Patient continue resting on air bed in ICU Rm. 105. Patient is intubated, sedated and mechanically ventilated. Patient appears to be in no pain using Daugherty Purcell Faces pain Scale. His Landry score is 13. Skin assessment done with the assistance of patient's nurse, LAI Feng. Patient's Rt lateral ear noted with 0.8x0.5cm dry,dark brown scab, area is clean and dry, left open to air. Patient's L heel Stage 1 pressure injury continue to improve, still display erythema but blanchable skin. Patient's Rt lateral heel noted with pigmented callous, area is clean and dry, left open to air. Patient's L sacral/ abrasion progress to Stage 2 pressure injury. 2x2cm area has dark red with dry serum blister with bright red surrounding skin, no drainage/odor noted. Mariah care given,applied Z Guard cream and covered with Opti foam gentle dressing.New photographs of wounds/skin issue are taken for reference. Repositioned patient for comfort facing his Rt. side, redistributed pressure points with pillows. Patient tolerated well. LAI Feng at bedside. RECOMMENDATION: Continuation of all wound care orders prescribed by MD, continue with skin/wound plan of care, continue monitoring by wound care while patient is hospitalized. Addendum: 02/13/20 at 1619 by Chantelle Yap RN Amended: Links added.
--- NOTE | 2020-02-13 15:26 | NUR ---
HOSPITALIST VISITS/ACKERMAN CATHETER CHANGED DR RUDOLPH UPDATED ON PATIENT'S STATUS, VITAL SIGNS AND CHANGES DURING SHIFT CHANGE. DOCTOR ALSO UPDATED ON PATIENT NOT TOLERATING FEEDINGS AND ONLY SMEAR OF BOWEL MOVEMENT WITH HYPOACTIVE BOWEL SOUNDS. DR RUDOLPH VERBALIZED UNDERSTANDING AND VERBAL ORDERS GIVEN - INCLUDING AN ORDER TO CHANGE ACKERMAN CATHETER. Ackerman catheter dc'd/Ackerman catheter insertion Order to change ackerman catheter received. Ackerman dc'd with clean technique following deflation of balloon. Ackerman catheter insertion after MD verbal order. Ackerman catheter 16 gauge British inserted with clean sterile technique. Patient tolerated well. A total of 500 mls dark cameron urine emptied from old ackerman catheter bag.
--- NOTE | 2020-02-13 19:00 | NUR ---
Opening Shift Note Assumed care of patient, awake and alert with mild confusion. Patient continues to reach for Bi-pap mask and attempts to remove mask. Patient currently on mittens to prevent taking off of mask. No S/S of distress/SOB or pain. Instructed on POC and to call for assist PRN, will continue to monitor for changes Q1hr and PRN. Addendum: 02/13/20 at 2024 by EVER LEON RN RN Wrong patient.
--- NOTE | 2020-02-13 19:00 | NUR ---
Opening shift note: Primary RN Titi received report on patient. Pt intubated ETT 8.0/ 24cm@LL, VENT settings: AC 16/TV450/FIO2 50/ PEEP 8, O2 SAT 98%, Bilateral lungs clear, diminished. Central line Right IJ TLC, infusing levo, versed, Prop and Fent. OG tube clamped, placement checked. Vega catheter draining via gravity with yellow urine. Rectal probe in place. Safety precautions in place. Will continue to monitor. Patient on isolation for COVID-19.
--- NOTE | 2020-02-13 20:42 | NUR ---
Family: Family called, password verified. Family updated on patient condition and POC.
--- NOTE | 2020-02-13 21:00 | NUR ---
2100 Sedation vacation held d/t patient to unstable at this time.
[2020-02-13] MEDS: METOCLOPRAMIDE HCL 5MG/ml INJ 2ml VIAL IV SCH (21:17)
--- NOTE | 2020-02-13 21:18 | NUR ---
Residual: Patient noted with a gastric residual of 70mL.
[2020-02-14] VITALS (98 sets, daily range): BP systolic 86–140; BP diastolic 48–87
[2020-02-14 04:19] LABS: Basophils # (auto) 0 10 ^3/uL (0-0.2); Basophils % (auto) 0.5 % (0.0-2.0); Eosinophils # (auto) 0.1 10 ^3/uL (0-0.8); Eosinophils % (auto) 0.8 % (0.0-7.0); Hematocrit 39.7 % (41.0-53.0); Hemoglobin 13.1 g/dL (13.5-17.5); Lymphocytes # (auto) 0.6 10 ^3/uL (0.4-5.4); Lymphocytes % (auto) 8.9 % (10.0-50.0); Mean Corpuscular Hgb Conc. 32.9 g/dL (32.0-36.0); Monocytes # (auto) 0.3 10 ^3/uL (0-1.3); Monocytes % (auto) 3.6 % (0.0-12.0); Neutrophils # (auto) 6.1 10 ^3/uL (1.6-8.6); Neutrophils % (auto) 86.2 % (37.0-80.0); Nucleated Red Blood Cells % 0.1 %; Platelet Count (auto) 242 10^3/uL (140-450); Red Blood Cells 5.03 10^6/uL (4.5-5.90); Red Cell Distribution Width 16.6 % (11.8-14.3); White Blood Cell 7.1 10^3/uL (4.4-10.8)
[2020-02-14 04:44] LABS: BUN/Creatinine Ratio 23.5; Calcium 7.6 mg/dL (8.5-10.1); Magnesium 1.8 mg/dL (1.6-2.6); Potassium 3.2 mmol/L (3.5-5.1)
[2020-02-14] MEDS: ACCU-CHEK COMFORT CURVE STRIP VI SCH ×4 (05:43→18:33)
[2020-02-14] MEDS: METOCLOPRAMIDE HCL 5MG/ml INJ 2ml VIAL IV SCH ×3 (05:43→22:00)
[2020-02-14] MEDS: INSULIN LANTUS (GLARGINE) 1 /0.01ml (100units/ml) SC SCH (05:43)
[2020-02-14] MEDS: InsuLIN REG 1unit/0.01ml Soln (100units/ml) SC SCH ×4 (05:43→18:33)
[2020-02-14] MEDS: ALBUTEROL SULF 2.5 MG/0.5ML(0.5%) NEB SOLN NEB SCH ×3 (06:55→23:03)
--- NOTE | 2020-02-14 07:20 | NUR ---
Assumed care of pt., report received per LAI Walls. No distress noted, pt. intubated and vented, tolerating vent, reading sinus rhythm on monitor, VSS, will cont.to monitor for any changes, assessment ongoing.
[2020-02-14] MEDS: amLODIPine BESYLATE 5 MG TAB PO SCH (10:00)
[2020-02-14] MEDS: MIDAZOLAM DRIP 50 mg/50mL 50 ML IV SCH (10:24)
[2020-02-14] MEDS: ENOXAPARIN SOD 40 MG/0.4 ML SYRINGE SC SCH ×2 (10:59→22:00)
[2020-02-14] MEDS: FAMOTIDINE 20 MG TAB PO SCH ×2 (10:59→22:00)
[2020-02-14] MEDS: ZINC SULFATE 220mg CAP or TAB PO SCH (10:59)
[2020-02-14] MEDS: ASCORBIC ACID 1,000 MG TAB PO SCH (10:59)
[2020-02-14] MEDS: CHOLECALCIFEROL (VITD3) 2,000 UNIT CAP PO SCH (11:00)
[2020-02-14] MEDS: DexAMETHasone SOD PHOS 4 MG/1ML SDV INJ IV SCH (11:00)
[2020-02-14] MEDS: THIAMINE 100mg/ml INJ (200mg/2ml VIAL) IV SCH (11:01)
[2020-02-14] MEDS: PROPOFOL 100 ML IV SCH (11:19)
[2020-02-14] MEDS: NOREPINEPHRINE 8 MG/250ML KIT 250 ML IV SCH (11:37)
--- NOTE | 2020-02-14 11:42 | NUR ---
Nutrition Followup Notes Wt 77.2 kg Pt is covid positive. Pt is intubated and sedated with propofol running at 18.098 ml/hr providing 478 kcal from lipids. Pt`s off EN support due to high residuals, and per RN will enter an order for TPN. Will continue to monitor PO status, skin status, pertinent labs and weight trends. Will f/u in 2-3 days [employer] needs BW 65 [id number] kcals (25-30 kcal/kgBW), Est Protein needs: 65-78 gms/day (1.0-1.2 gm/kgBW). Will continue to monitor and reassess prn. Labs: GLU 131 H Alb 1.7 L BM: Pt with 1 BM on 02/12 per RN note Skin: BS 13 mod risk, skin intact, full details in healthcare sales representative note PES; 1) Altered nutrition related lab values r.t current chronic medical condition aeb elev BUN hyperglycemia, mod hypoalb 2) Impaired swallowing r.t current medical condition aeb pt`s intubated sedated with order of NPO Comments: F/u high 2-3 days 1) consider EN support with Glucerna @ 40 ml/hr per MD approval at current rate of propofol 2) advanced diet as medically feasible 3) refer to CDE on DC 4) continue current plan of care
[2020-02-14] MEDS ORDERED: POTASSIUM CHLORIDE 40 MEQ, LIDOCAINE 1% (LOCAL ANESTH.) 4 ML in SODIUM CHL 0.9% 100 ML IV ONE (13:15)
[2020-02-14] MEDS ORDERED: POTASSIUM CHL 20MEQ/100ML 0 ML IV ONE (14:29)
[2020-02-14] MEDS: ACETAMINOPHEN 325 MG TAB PO PRN (16:48)
--- NOTE | 2020-02-14 19:17 | NUR ---
No distress noted, pt. report given to LAI Winchester. Care of pt. assumed per NOC's day shift RN relinquished care and signed off
[2020-02-15] VITALS (73 sets, daily range): BP systolic 67–212; BP diastolic 43–107
[2020-02-15 05:10] LABS: Eosinophils # (auto) 0 10 ^3/uL (0-0.8); Lymphocytes # (auto) 0.8 10 ^3/uL (0.4-5.4); Lymphocytes % (auto) 6.2 % (10.0-50.0); Monocytes # (auto) 0.4 10 ^3/uL (0-1.3); Nucleated Red Blood Cells % 0.1 %
[2020-02-15 05:11] LABS: Basophils # (auto) 0.1 10 ^3/uL (0-0.2); Basophils % (auto) 0.4 % (0.0-2.0); Hematocrit 42.5 % (41.0-53.0); Mean Corpuscular Hemoglobin 26.1 pg (28.0-32.0); Mean Corpuscular Volume 78.9 fL (80.0-100.0); Monocytes % (auto) 3.3 % (0.0-12.0); Neutrophils # (auto) 11.1 10 ^3/uL (1.6-8.6); Neutrophils % (auto) 90.1 % (37.0-80.0); Platelet Count (auto) 207 10^3/uL (140-450); Red Blood Cells 5.38 10^6/uL (4.5-5.90); Red Cell Distribution Width 16.8 % (11.8-14.3); White Blood Cell 12.4 10^3/uL (4.4-10.8)
[2020-02-15 05:28] LABS: BUN/Creatinine Ratio 28.1; Calcium 7.8 mg/dL (8.5-10.1); INR 1.28 (0.9-1.15); Partial Thromboplastin Time 31.9 sec (23.0-31.2); Potassium 3.7 mmol/L (3.5-5.1)
[2020-02-15 05:30] LABS: Bilirubin, Total 1.6 mg/dL (0.2-1.0); Total Protein 6.3 g/dL (6.4-8.2)
[2020-02-15 05:54] LABS: CRP High Sensitivity 12.5 mg/dL (< 0.3)
[2020-02-15] MEDS: InsuLIN REG 1unit/0.01ml Soln (100units/ml) SC SCH ×5 (06:00→22:13)
[2020-02-15] MEDS: METOCLOPRAMIDE HCL 5MG/ml INJ 2ml VIAL IV SCH ×3 (06:00→22:00)
[2020-02-15] MEDS: ACCU-CHEK COMFORT CURVE STRIP VI SCH ×5 (06:00→22:10)
[2020-02-15] MEDS: ALBUTEROL SULF 2.5 MG/0.5ML(0.5%) NEB SOLN NEB SCH ×3 (06:55→22:58)
[2020-02-15] MEDS: INSULIN LANTUS (GLARGINE) 1 /0.01ml (100units/ml) SC SCH (07:20)
--- NOTE | 2020-02-15 07:25 | NUR ---
Assumed care of pt., report received per LAI Winchester. No distress noted, intubated/vented, pt. reading sinus tachycardia 120's on monitor, will cont.to monitor for any changes, assessment ongoing.
--- NOTE | 2020-02-15 08:00 | NUR ---
pt. given SAT/Sed. vacation, noted increasing resp rate, increasing HR, increasing O2 demands, pt. opens eyes, no blink to threat, sclera edema noted, withdrawals slightly to deep pain, pt. re-sedated, will cont.to monitor for any changes, assessment ongoing.
[2020-02-15] MEDS: fentaNYL Drip 2500mCg/250mlNS 250 ML IV SCH ×2 (08:03→14:04)
[2020-02-15] MEDS: NOREPINEPHRINE 8 MG/250ML KIT 250 ML IV SCH (09:15)
--- NOTE | 2020-02-15 09:20 | NUR ---
Pt waking up and not tolerating sedation vacation, O2 desat to 86% due to ventilator asynchrony. HR 130's, RR 40's. Increased FIO2 to 100%. RN increasing sedation. Will continue to monitor.
--- NOTE | 2020-02-15 10:10 | NUR ---
Versed hung at this time, unable to back time in emar.
[2020-02-15] MEDS: amLODIPine BESYLATE 5 MG TAB PO SCH (10:30)
--- NOTE | 2020-02-15 10:39 | NUR ---
TITRATED FIO2 TO 60% PT RESEDATED AND TOLERATING VENT WELL. PT TOLERATING CHANGES MAINTAINING SPO2 95%. NO S/S OF DISTRESS. NOTIFIED RN OF CHANGES.
[2020-02-15] MEDS: DexAMETHasone SOD PHOS 4 MG/1ML SDV INJ IV SCH (10:48)
[2020-02-15] MEDS: FAMOTIDINE 20 MG TAB PO SCH ×2 (10:48→22:00)
[2020-02-15] MEDS: ENOXAPARIN SOD 40 MG/0.4 ML SYRINGE SC SCH ×2 (10:48→22:00)
[2020-02-15] MEDS: ACETAMINOPHEN 325 MG TAB PO PRN (10:49)
[2020-02-15] MEDS: PROPOFOL 100 ML IV SCH ×2 (11:32→16:17)
[2020-02-15] MEDS: MIDAZOLAM DRIP 50 mg/50mL 50 ML IV SCH (12:55)
--- NOTE | 2020-02-15 19:35 | NUR ---
No distress noted, pt. report given to LAI Erazo. Care of pt assumed per NOC supercharger repair supervisor, day shift relinquished care and signed off.
[2020-02-16] VITALS (83 sets, daily range): BP systolic 74–169; BP diastolic 45–90
[2020-02-16] MEDS: INSULIN LANTUS (GLARGINE) 1 /0.01ml (100units/ml) SC SCH (05:27)
[2020-02-16] MEDS: InsuLIN REG 1unit/0.01ml Soln (100units/ml) SC SCH ×4 (06:00→23:11)
[2020-02-16] MEDS: ACCU-CHEK COMFORT CURVE STRIP VI SCH ×4 (06:28→23:00)
[2020-02-16] MEDS: METOCLOPRAMIDE HCL 5MG/ml INJ 2ml VIAL IV SCH ×3 (06:28→22:33)
[2020-02-16] MEDS: ALBUTEROL SULF 2.5 MG/0.5ML(0.5%) NEB SOLN NEB SCH ×3 (06:41→22:01)
[2020-02-16 06:47] LABS: Basophils # (auto) 0.1 10 ^3/uL (0-0.2); Eosinophils # (auto) 0 10 ^3/uL (0-0.8); Lymphocytes # (auto) 0.8 10 ^3/uL (0.4-5.4); Lymphocytes % (auto) 5.3 % (10.0-50.0); Monocytes # (auto) 0.4 10 ^3/uL (0-1.3); Neutrophils # (auto) 13.3 10 ^3/uL (1.6-8.6); Red Cell Distribution Width 16.8 % (11.8-14.3)
[2020-02-16 06:49] LABS: Basophils % (auto) 0.8 % (0.0-2.0); Eosinophils % (auto) 0.1 % (0.0-7.0); Hematocrit 38.9 % (41.0-53.0); Mean Corpuscular Hemoglobin 26.1 pg (28.0-32.0); Mean Corpuscular Hgb Conc. 33.4 g/dL (32.0-36.0); Mean Corpuscular Volume 78.3 fL (80.0-100.0); Monocytes % (auto) 2.6 % (0.0-12.0); Neutrophils % (auto) 91.2 % (37.0-80.0); Nucleated Red Blood Cells % 0.1 %; Platelet Count (auto) 229 10^3/uL (140-450); Red Blood Cells 4.96 10^6/uL (4.5-5.90); White Blood Cell 14.6 10^3/uL (4.4-10.8)
[2020-02-16 07:02] LABS: Calcium 7.9 mg/dL (8.5-10.1); Potassium 3.4 mmol/L (3.5-5.1)
[2020-02-16 07:04] LABS: BUN/Creatinine Ratio 28.1
--- NOTE | 2020-02-16 07:15 | NUR ---
Assumed care of pt. report received per LAI Winchester. No distress noted, pt. reading sinus rhythm /s ectopy, intubated and vented, VSS, will cont.to monitor for any changes, assessment ongoing.
[2020-02-16] MEDS: MIDAZOLAM DRIP 50 mg/50mL 50 ML IV SCH ×3 (07:43→21:08)
[2020-02-16] MEDS: amLODIPine BESYLATE 5 MG TAB PO SCH (10:00)
[2020-02-16] MEDS: ENOXAPARIN SOD 40 MG/0.4 ML SYRINGE SC SCH (10:19)
[2020-02-16] MEDS: FAMOTIDINE 20 MG TAB PO SCH ×2 (10:19→22:33)
[2020-02-16] MEDS: DexAMETHasone SOD PHOS 4 MG/1ML SDV INJ IV SCH (10:19)
[2020-02-16] MEDS: PROPOFOL 100 ML IV SCH ×3 (12:20→23:44)
[2020-02-16] MEDS: NOREPINEPHRINE 8 MG/250ML KIT 250 ML IV SCH ×2 (12:52→21:09)
[2020-02-16] MEDS: fentaNYL Drip 2500mCg/250mlNS 250 ML IV SCH (13:55)
--- NOTE | 2020-02-16 14:06 | NUR ---
Nutrition Followup Notes Wt 82.0 kg Pt is COVID positive. Pt is intubated and sedated with propofol running at 15.573 ml/hr providing 411 kcal from lipids. Pt`s with EN support @ 10 ml/hr, and planning to increase to 20 ml/hr this evening depending on pt tolerance per RN. Pt is scheduled for a trach and PEG tube after COVID test results come out negative per RN. Will continue to monitor PO status, skin status, pertinent labs and weight trends. Will f/u in 2-3 days [employer] needs BW 65 [id number] kcals (25-30 kcal/kgBW), Est Protein needs: 65-78 gms/day (1.0-1.2 gm/kgBW). Will continue to monitor and reassess prn. Labs: GLU 161 H Alb 2.0 L BM: Pt with no BM today per RN note Skin: BS 13 mod risk, skin intact, full details in care attendant note PES; 1) Altered nutrition related lab values r.t current chronic medical condition aeb elev BUN hyperglycemia, mod hypoalb 2) Impaired swallowing r.t current medical condition aeb pt`s intubated sedated with order of NPO Comments: F/u high 2-3 days 1) consider EN support with Glucerna @ 40 ml/hr per MD approval at current rate of propofol 2) advanced diet as medically feasible 3) refer to CDE on DC 4) continue current plan of care
--- NOTE | 2020-02-16 14:50 | NUR ---
CRITICAL LAB VALUE-Called to Dr. Carlisle, new orders received, will implement and cont.to monitor for effectiveness, assessment ongoing.
[2020-02-16] MEDS ORDERED: VANCOMYCIN PER PHARMACY 0 MG IV SCH (15:00)
[2020-02-16] MEDS ORDERED: cefTRIAXone 1GM/50ML D5W 50 ML IV ONE (15:00)
[2020-02-16] MEDS: SODIUM CHLORIDE 0.9% 1,000 ML IV SCH (16:32)
[2020-02-16] MEDS: VANCOMYCIN 1GM/250ML 250 ML IV SCH (16:32)
--- NOTE | 2020-02-16 19:17 | NUR ---
No distress noted, pt. report given to LAI Kidd. Care of pt. assumed per NOC RN. Day shift RN relinquished care and signed off.
--- NOTE | 2020-02-16 21:00 | NUR ---
NO SEDATION VACATION AT THIS TIME PATIENT NOT WEANING ON FULL SEDATION AWAITING SARS-COV-2 SWAB RESULTS SENT OUT TODAY Addendum: 02/16/20 at 2213 by MARCIAL ROSA RN RN Amended: Links added.
--- NOTE | 2020-02-16 22:14 | NUR ---
AT BEDSIDE IN FULL PPE, NO LIP BREAKDOWN NOTED. FIO2 TITRATED TO 50%, TOLERATING WELL. WILL CONTINUE TO MONITOR.
[2020-02-16] MEDS ORDERED: ENOXAPARIN SOD 60 MG/0.6 ML SYRINGE SC ONE (22:30)
[2020-02-17] VITALS (99 sets, daily range): BP systolic 80–149; BP diastolic 48–78
[2020-02-17] MEDS: fentaNYL Drip 2500mCg/250mlNS 250 ML IV SCH ×2 (01:21→13:59)
--- NOTE | 2020-02-17 02:15 | NUR ---
FIO2 TITRATED TO 45%, PT TOLERATING WELL. SPO2 NOTED AT 94%, WILL CONTINUE TO MONITOR.
[2020-02-17] MEDS: MIDAZOLAM DRIP 50 mg/50mL 50 ML IV SCH ×2 (03:56→20:26)
[2020-02-17] MEDS: PROPOFOL 100 ML IV SCH ×2 (03:57→10:37)
[2020-02-17 04:29] LABS: Basophils # (auto) 0 10 ^3/uL (0-0.2); Basophils % (auto) 0.3 % (0.0-2.0); Eosinophils # (auto) 0 10 ^3/uL (0-0.8)
[2020-02-17 04:31] LABS: Hematocrit 38.6 % (41.0-53.0); Hemoglobin 12.6 g/dL (13.5-17.5); Lymphocytes # (auto) 0.8 10 ^3/uL (0.4-5.4); Lymphocytes % (auto) 5.2 % (10.0-50.0); Mean Corpuscular Hemoglobin 25.8 pg (28.0-32.0); Mean Corpuscular Hgb Conc. 32.8 g/dL (32.0-36.0); Mean Corpuscular Volume 78.8 fL (80.0-100.0); Monocytes # (auto) 0.5 10 ^3/uL (0-1.3); Monocytes % (auto) 3.4 % (0.0-12.0); Neutrophils # (auto) 13.3 10 ^3/uL (1.6-8.6); Neutrophils % (auto) 91.1 % (37.0-80.0); Platelet Count (auto) 253 10^3/uL (140-450); Red Blood Cells 4.89 10^6/uL (4.5-5.90); Red Cell Distribution Width 16.9 % (11.8-14.3); White Blood Cell 14.6 10^3/uL (4.4-10.8)
[2020-02-17 04:51] LABS: Calcium 7.7 mg/dL (8.5-10.1); Potassium 3.4 mmol/L (3.5-5.1)
[2020-02-17 04:53] LABS: BUN/Creatinine Ratio 21.4
[2020-02-17] MEDS: VANCOMYCIN 1GM/250ML 250 ML IV SCH ×2 (05:15→16:59)
[2020-02-17] MEDS: ACCU-CHEK COMFORT CURVE STRIP VI SCH ×3 (05:19→17:40)
[2020-02-17] MEDS: METOCLOPRAMIDE HCL 5MG/ml INJ 2ml VIAL IV SCH ×3 (05:19→22:04)
[2020-02-17] MEDS: InsuLIN REG 1unit/0.01ml Soln (100units/ml) SC SCH ×3 (06:24→17:45)
[2020-02-17] MEDS: INSULIN LANTUS (GLARGINE) 1 /0.01ml (100units/ml) SC SCH (06:26)
[2020-02-17] MEDS: ALBUTEROL SULF 2.5 MG/0.5ML(0.5%) NEB SOLN NEB SCH ×3 (06:35→22:48)
[2020-02-17] MEDS: cefTRIAXone 1GM/50ML D5W 50 ML IV SCH (09:00)
--- NOTE | 2020-02-17 09:20 | NUR ---
DR. KAPADIA HERE TO SEE PATIENT. SEE MD NOTES AND EMR FOR ANY NEW ORDERS.
[2020-02-17] MEDS: amLODIPine BESYLATE 5 MG TAB PO SCH (09:51)
[2020-02-17] MEDS: DexAMETHasone SOD PHOS 4 MG/1ML SDV INJ IV SCH (09:51)
[2020-02-17] MEDS: FAMOTIDINE 20 MG TAB PO SCH ×2 (10:00→22:04)
[2020-02-17] MEDS: ENOXAPARIN SOD 40 MG/0.4 ML SYRINGE SC SCH ×2 (10:00→22:04)
[2020-02-17] MEDS: SODIUM CHLORIDE 0.9% 1,000 ML IV SCH (10:44)
--- NOTE | 2020-02-17 10:49 | NUR ---
DR. ALMANZA HERE TO SEE PATIENT. SEE MD NOTES AND EMR FOR ANY NEW ORDERS.
--- NOTE | 2020-02-17 19:00 | NUR ---
RECD REPORT, BP LABILE 88/51 LEVOPHED RE STARTED AT 2 MCG, CONTINUE TO MONITOR FULLY SEDATED VERSED AT 10MG FENT 2 200 MCG AND PROPOFOL AT [address] 8 AT 24 CM VENT SETTINGS FIO2-80%, PEEP-8 AC-16 AND TV-500 SATS-95% CONTINUE CARE.
--- NOTE | 2020-02-17 21:00 | NUR ---
NO SEDATION VACATION AT THIS TIME ON FIO2-80% Addendum: 02/17/20 at 2224 by MARCIAL ROSA RN RN Amended: Links added.
--- NOTE | 2020-02-17 23:01 | NUR ---
FIO2 TITRATED TO 70%. SPO2 REMAINS AT 95%.
[2020-02-18] VITALS (82 sets, daily range): BP systolic 80–152; BP diastolic 35–79
[2020-02-18] MEDS: InsuLIN REG 1unit/0.01ml Soln (100units/ml) SC SCH ×4 (00:31→18:06)
[2020-02-18] MEDS: PROPOFOL 100 ML IV SCH ×2 (00:33→23:42)
[2020-02-18] MEDS: fentaNYL Drip 2500mCg/250mlNS 250 ML IV SCH (02:51)
[2020-02-18] MEDS: MIDAZOLAM DRIP 50 mg/50mL 50 ML IV SCH (02:52)
[2020-02-18 04:52] LABS: Basophils # (auto) 0 10 ^3/uL (0-0.2); Eosinophils # (auto) 0 10 ^3/uL (0-0.8); Hematocrit 35.3 % (41.0-53.0); Monocytes # (auto) 0.3 10 ^3/uL (0-1.3); Red Blood Cells 4.45 10^6/uL (4.5-5.90); White Blood Cell 9.5 10^3/uL (4.4-10.8)
[2020-02-18 04:55] LABS: Basophils % (auto) 0.1 % (0.0-2.0); Hemoglobin 11.8 g/dL (13.5-17.5); Lymphocytes # (auto) 0.7 10 ^3/uL (0.4-5.4); Lymphocytes % (auto) 7.1 % (10.0-50.0); Mean Corpuscular Hemoglobin 26.5 pg (28.0-32.0); Mean Corpuscular Hgb Conc. 33.4 g/dL (32.0-36.0); Mean Corpuscular Volume 79.3 fL (80.0-100.0); Monocytes % (auto) 3.5 % (0.0-12.0); Neutrophils # (auto) 8.5 10 ^3/uL (1.6-8.6); Neutrophils % (auto) 89.3 % (37.0-80.0); Nucleated Red Blood Cells % 0.1 %; Platelet Count (auto) 253 10^3/uL (140-450); Red Cell Distribution Width 16.9 % (11.8-14.3)
[2020-02-18 05:07] LABS: Potassium 3.2 mmol/L (3.5-5.1)
[2020-02-18] MEDS: VANCOMYCIN 1GM/250ML 250 ML IV SCH ×3 (05:11→18:11)
[2020-02-18] MEDS: METOCLOPRAMIDE HCL 5MG/ml INJ 2ml VIAL IV SCH ×3 (05:12→22:00)
[2020-02-18 05:14] LABS: Albumin 1.7 g/dL (3.4-5.0); BUN/Creatinine Ratio 21.7; Bilirubin, Total 0.8 mg/dL (0.2-1.0); Calcium 7.7 mg/dL (8.5-10.1); Total Protein 5.5 g/dL (6.4-8.2)
[2020-02-18] MEDS: ACCU-CHEK COMFORT CURVE STRIP VI SCH ×4 (05:16→18:06)
[2020-02-18] MEDS: INSULIN LANTUS (GLARGINE) 1 /0.01ml (100units/ml) SC SCH (06:35)
[2020-02-18] MEDS: SODIUM CHLORIDE 0.9% 1,000 ML IV SCH ×3 (07:27→19:30)
[2020-02-18] MEDS: cefTRIAXone 1GM/50ML D5W 50 ML IV SCH (09:05)
[2020-02-18] MEDS: FAMOTIDINE 20 MG TAB PO SCH ×2 (09:20→22:00)
[2020-02-18] MEDS: DexAMETHasone SOD PHOS 4 MG/1ML SDV INJ IV SCH (09:21)
[2020-02-18] MEDS: ENOXAPARIN SOD 40 MG/0.4 ML SYRINGE SC SCH ×2 (09:21→22:00)
[2020-02-18] MEDS: ALBUTEROL SULF 2.5 MG/0.5ML(0.5%) NEB SOLN NEB SCH ×3 (09:25→22:42)
[2020-02-18] MEDS: NOREPINEPHRINE 8 MG/250ML KIT 250 ML IV SCH ×2 (12:48→23:41)
[2020-02-18] MEDS: ACETAMINOPHEN 325 MG TAB PO PRN (12:49)
[2020-02-18] MEDS: POTASSIUM CHL 20MEQ/100ML 100 ML IV SCH ×2 (13:54→15:25)
--- NOTE | 2020-02-18 14:22 | NUR ---
Nutrition Followup Notes Wt 84.2 kg Pt is COVID positive. Pt is intubated and sedated with propofol running at 15.513 ml/hr providing 411 kcal from lipids. Pt`s with TF support halted for 24 hrs d/t pt was aspirating per RN. Pt is scheduled for a trach and PEG tube after COVID test results come out negative per RN. Est [employer] needs BW 65 [id number] kcals (25-30 kcal/kgBW), Est Protein needs: 65-78 gms/day (1.0-1.2 gm/kgBW). Will continue to monitor and reassess prn. Labs: GLU 131 H Alb 1.7 L BM: Pt with no BM today per RN note Skin: BS 13 mod risk, skin intact, full details in home care liaison note PES; 1) Altered nutrition related lab values r.t current chronic medical condition aeb elev BUN hyperglycemia, mod hypoalb 2) Impaired swallowing r.t current medical condition aeb pt`s intubated sedated with order of NPO Comments: Will continue to monitor PO status, skin status, pertinent labs and weight trends. Will f/u in 2-3 days. 1) consider EN support with Glucerna @ 40 ml/hr per MD approval at current rate of propofol 2) advanced diet as medically feasible 3) refer to CDE on DC 4) continue current plan of care
[2020-02-18] MEDS ORDERED: NOREPINEPHRINE 8 MG/250ML KIT 250 ML IV ONE (23:01)
[2020-02-19] VITALS (71 sets, daily range): BP systolic 69–166; BP diastolic 39–86
[2020-02-19] MEDS: InsuLIN REG 1unit/0.01ml Soln (100units/ml) SC SCH ×5 (00:29→23:48)
[2020-02-19] MEDS: ACCU-CHEK COMFORT CURVE STRIP VI SCH ×5 (00:29→23:48)
[2020-02-19] MEDS: VANCOMYCIN 1GM/250ML 250 ML IV SCH ×4 (01:16→23:23)
[2020-02-19] MEDS: MIDAZOLAM DRIP 50 mg/50mL 50 ML IV SCH (02:09)
[2020-02-19 04:15] LABS: Eosinophils # (auto) 0 10 ^3/uL (0-0.8); Eosinophils % (auto) 0.1 % (0.0-7.0); Neutrophils # (auto) 7.7 10 ^3/uL (1.6-8.6); Neutrophils % (auto) 86.2 % (37.0-80.0); White Blood Cell 8.9 10^3/uL (4.4-10.8)
[2020-02-19 04:17] LABS: Basophils # (auto) 0 10 ^3/uL (0-0.2); Basophils % (auto) 0.5 % (0.0-2.0); Hemoglobin 12.6 g/dL (13.5-17.5); Lymphocytes # (auto) 0.8 10 ^3/uL (0.4-5.4); Lymphocytes % (auto) 8.9 % (10.0-50.0); Mean Corpuscular Hemoglobin 26.3 pg (28.0-32.0); Mean Corpuscular Hgb Conc. 33.1 g/dL (32.0-36.0); Mean Corpuscular Volume 79.6 fL (80.0-100.0); Monocytes # (auto) 0.4 10 ^3/uL (0-1.3); Monocytes % (auto) 4.3 % (0.0-12.0); Nucleated Red Blood Cells % 0.2 %; Platelet Count (auto) 264 10^3/uL (140-450); Red Blood Cells 4.78 10^6/uL (4.5-5.90); Red Cell Distribution Width 16.6 % (11.8-14.3)
[2020-02-19 05:21] LABS: Alkaline Phosphatase 130 U/L (45-117); Anion Gap 4 (5-15); BUN/Creatinine Ratio 16.7; Blood Urea Nitrogen 5 mg/dL (7-18); Carbon Dioxide 33 mmol/L (21-32); Chloride 101 mmol/L (98-107); GFR African American 386 mL/min; GFR Non-African American 319 mL/min; Glucose 161 mg/dL (74-106); Potassium 3.2 mmol/L (3.5-5.1); Sodium 138 mmol/L (136-145)
[2020-02-19 05:22] LABS: Alanine Aminotransferase 61 U/L (16-61); Albumin 1.7 g/dL (3.4-5.0); Aspartate Aminotransferase 53 U/L (15-37); Bilirubin, Total < 0.1 mg/dL (0.2-1.0); CRP High Sensitivity 10 mg/dL (< 0.3); Calcium 7.6 mg/dL (8.5-10.1); Total Protein 6.1 g/dL (6.4-8.2)
[2020-02-19] MEDS: METOCLOPRAMIDE HCL 5MG/ml INJ 2ml VIAL IV SCH ×3 (06:19→22:00)
[2020-02-19] MEDS: PROPOFOL 100 ML IV SCH ×2 (06:20→23:29)
[2020-02-19] MEDS: ALBUTEROL SULF 2.5 MG/0.5ML(0.5%) NEB SOLN NEB SCH ×3 (06:35→23:17)
[2020-02-19] MEDS: INSULIN LANTUS (GLARGINE) 1 /0.01ml (100units/ml) SC SCH (07:00)
[2020-02-19] MEDS: POTASSIUM CHL 20MEQ/100ML 100 ML IV SCH ×2 (07:30→08:54)
[2020-02-19] MEDS: ACETAMINOPHEN 325 MG TAB PO PRN ×2 (08:04→23:50)
[2020-02-19] MEDS ORDERED: POTASSIUM CHL 20MEQ/100ML 200 ML IV ONE (08:15)
[2020-02-19] MEDS: cefTRIAXone 1GM/50ML D5W 50 ML IV SCH (09:30)
[2020-02-19] MEDS: ENOXAPARIN SOD 40 MG/0.4 ML SYRINGE SC SCH ×2 (10:34→22:00)
[2020-02-19] MEDS: FAMOTIDINE 20 MG TAB PO SCH ×2 (10:34→22:00)
[2020-02-19] MEDS ORDERED: SODIUM CHLORIDE 0.9 % NEB SOLN 3ML NEB ONE (13:49)
--- NOTE | 2020-02-19 16:05 | NUR ---
PATIENT HAVING PERIODS OF DESATURATION TO LOW 80'S ALERTED RT ROGELIO, SHE IS AWARE.
[2020-02-19] MEDS: SODIUM CHLORIDE 0.9% 1,000 ML IV SCH (18:00)
[2020-02-19] MEDS: fentaNYL Drip 2500mCg/250mlNS 250 ML IV SCH ×2 (18:01→22:20)
--- NOTE | 2020-02-19 18:45 | NUR ---
Respiratory note: DECREASED FIO2 TO 85% FROM 100%. PT MAINTAINING O2 SATS OF 98%. PT IS ON SEDATION, BREATH STACKING EVERY OTHER BREATH. ET TUBE MOVED TO RIGHT SIDE, NO BREAKDOWN NOTED. BREATH SOUNDS DIMINISHED THROUGHOUT. SUCTIONED PT FOR SMALL AMT OF YELLOW/GREEN PLUGS, + COUGH/GAG NOTED. VENT IS PLUGGED INTO RED OUTLET, AMBU BAG AT BEDSIDE, ALARMS ON AND AUDIBLE. WILL CONTINUE WITH CARE.
--- NOTE | 2020-02-19 20:25 | NUR ---
Respiratory note: ABG DRAWN VIA RIGHT RADIAL AT THIS TIME ORDERED BY DR. KAPADIA. PEEP INCREASED TO 10 POST ABG ORDERED. PT REMAINS BREATH STACKING, ATTEMPTED ADJUSTING PEAK FLOW AND SENSITIVITY, NO IMPROVEMENT.
--- NOTE | 2020-02-19 22:38 | NUR ---
Respiratory note: VENT CHECKED, NO CHANGES MADE. PT REMAINS BREATH STACKING ON EVERY BREATH. TX GIVEN WITH AEROGEN, TOLERATED WELL.
[2020-02-20] VITALS (64 sets, daily range): BP systolic 80–116; BP diastolic 44–70
--- NOTE | 2020-02-20 00:25 | NUR ---
Respiratory note: CALLED INTO ROOM BY RN DUE TO VENT ALARMING. RN STATES VENT HAS BEEN ALARMING AND SHE IS UNABLE TO PASS SUCTION CATHETER. ENTERED ROOM, PTS RR NOTED TO BE IN THE HIGH 30'S TO LOW 40'S, PT CONTINUING TO BREATH STACK, EVEN TWO BREATHS ON TOP OF DELIVERED BREATH. VENT ALARMING HIGH PRESSURE, LOW PRESSURE, LOW VT, LOW PEEP. PEAK PRESSURES RANGING FROM 7 TO 50, VT'S OF 600/800'S AND 0'S. PTS O2 SATS AT 86%, INCREASED FIO2 FROM 85% TO 100%. SATS INCREASED TO 89-91%. SUCTIONED PT VIA ET TUBE, NO DIFFICULTY IN ADVANCING CATHETER. MODERATE AMT OF THICK MAO SECRETIONS WITH SALINE LAVAGE. PTS RR REMAINS ELEVATED WITH VARIABLE VT'S AND PRESSURES, BREATH STACKING. RN NOTIFIED OF PTS CONDITION, HAS INCREASED PTS SEDATION.
[2020-02-20] MEDS: MIDAZOLAM DRIP 50 mg/50mL 50 ML IV SCH ×4 (00:40→20:22)
[2020-02-20] MEDS: SODIUM CHLORIDE 0.9% 1,000 ML IV SCH ×2 (03:35→20:20)
[2020-02-20] MEDS: ACCU-CHEK COMFORT CURVE STRIP VI SCH ×3 (05:51→17:54)
[2020-02-20] MEDS: METOCLOPRAMIDE HCL 5MG/ml INJ 2ml VIAL IV SCH ×3 (05:51→21:49)
[2020-02-20] MEDS: InsuLIN REG 1unit/0.01ml Soln (100units/ml) SC SCH ×3 (06:00→17:54)
--- NOTE | 2020-02-20 06:53 | NUR ---
At shift start pt began reading 102.1 while cooling blanket was on from previous shift. Placed cooling blanket under pt and applied ice packs and administered tylenol and pt's temp eventually became normal. @6am this morning I noticed pts temp was in 80's. I applied warm blankets and changed the temp on the cooling blanket to warm pt. I also turned the warming light on and added more warm blankets around head and feet. Will continue to monitor.
[2020-02-20] MEDS: INSULIN LANTUS (GLARGINE) 1 /0.01ml (100units/ml) SC SCH (07:00)
[2020-02-20] MEDS: PROPOFOL 100 ML IV SCH ×3 (07:00→21:48)
--- NOTE | 2020-02-20 08:00 | NUR ---
OPENING Report received from Agnieszka. Initial assessment complete.
[2020-02-20 09:37] LABS: Lymphocytes # (auto) 0.5 10 ^3/uL (0.4-5.4); Lymphocytes % (auto) 4.3 % (10.0-50.0); Monocytes # (auto) 0.3 10 ^3/uL (0-1.3); Neutrophils # (auto) 11.3 10 ^3/uL (1.6-8.6); Nucleated Red Blood Cells % 0.1 %
[2020-02-20 09:41] LABS: Basophils # (auto) 0.1 10 ^3/uL (0-0.2); Basophils % (auto) 0.4 % (0.0-2.0); Eosinophils # (auto) 0.1 10 ^3/uL (0-0.8); Eosinophils % (auto) 0.8 % (0.0-7.0); Hematocrit 37.7 % (41.0-53.0); Hemoglobin 12.6 g/dL (13.5-17.5); Mean Corpuscular Hemoglobin 26.1 pg (28.0-32.0); Mean Corpuscular Hgb Conc. 33.4 g/dL (32.0-36.0); Mean Corpuscular Volume 78.2 fL (80.0-100.0); Monocytes % (auto) 2.6 % (0.0-12.0); Neutrophils % (auto) 91.9 % (37.0-80.0); Platelet Count (auto) 218 10^3/uL (140-450); Red Blood Cells 4.83 10^6/uL (4.5-5.90); Red Cell Distribution Width 16.8 % (11.8-14.3); White Blood Cell 12.3 10^3/uL (4.4-10.8)
[2020-02-20] MEDS: cefTRIAXone 1GM/50ML D5W 50 ML IV SCH (09:47)
[2020-02-20] MEDS: ENOXAPARIN SOD 40 MG/0.4 ML SYRINGE SC SCH ×2 (09:48→21:49)
[2020-02-20] MEDS: FAMOTIDINE 20 MG TAB PO SCH ×2 (09:48→21:49)
[2020-02-20] MEDS: VANCOMYCIN 1GM/250ML 250 ML IV SCH ×3 (09:49→23:30)
[2020-02-20 09:53] LABS: Albumin 1.6 g/dL (3.4-5.0); Calcium 7.5 mg/dL (8.5-10.1); Potassium 3.4 mmol/L (3.5-5.1)
[2020-02-20 09:54] LABS: INR 1.27 (0.9-1.15); Partial Thromboplastin Time 30.6 sec (23.0-31.2)
[2020-02-20 09:57] LABS: BUN/Creatinine Ratio 22.2; Bilirubin, Total 3.1 mg/dL (0.2-1.0); Total Protein 5.4 g/dL (6.4-8.2)
--- NOTE | 2020-02-20 11:25 | NUR ---
Nutrition Followup Notes Wt 84.2 kg Pt is COVID positive. Pt is intubated and sedated with propofol running at 18.098 ml/hr providing 478 kcal from lipids. Pt TF is still held pt with last TF recorded 02/16 per RN note, consider restarting TF when medically feasible. Pt is scheduled for a trach and PEG tube after COVID test results come out negative per RN. Est [employer] needs BW 65 [id number] kcals (25-30 kcal/kgBW), Est Protein needs: 65-78 gms/day (1.0-1.2 gm/kgBW). Will continue to monitor and reassess prn. Labs: BUN 5L, Creat 0.30L, Alb 1.7L, Ca 7.6L BM: Pt with last BM 02/12 per RN note Skin: BS 13 mod risk, skin intact, full details in patient care provider note PES; 1) Altered nutrition related lab values r.t current chronic medical condition aeb elev BUN hyperglycemia, mod hypoalb 2) Impaired swallowing r.t current medical condition aeb pt`s intubated sedated with order of NPO Comments: Will continue to monitor PO status, skin status, pertinent labs and weight trends. Will f/u in 2-3 days. 1) consider EN support with Glucerna @ 40 ml/hr per MD approval at current rate of propofol 2) advanced diet as medically feasible 3) refer to CDE on DC 4) continue current plan of care
[2020-02-20] MEDS: NOREPINEPHRINE 8 MG/250ML KIT 250 ML IV SCH (12:52)
[2020-02-20] MEDS ORDERED: SODIUM CHLORIDE 0.9 % NEB SOLN 3ML NEB ONE (13:39)
[2020-02-20] MEDS: ALBUTEROL SULF 2.5 MG/0.5ML(0.5%) NEB SOLN NEB SCH ×2 (14:16→22:25)
--- NOTE | 2020-02-20 15:38 | NUR ---
WOUND CARE NOTE: WOUND CARE IN TO SEE PATIENT FOR REEVALUATION. Patient's Rt lateral ear noted with dry,dark brown scab, area is clean and dry, left open to air. Patient's L heel Stage 1 pressure injury continues to improve, still display erythema but blanchable skin, LEFT OPEN TO AIR. Patient's Rt lateral heel noted with pigmented callous, area is clean and dry, left open to air. Patient's L sacral/abrasion progress to Stage 2 pressure injury. 2x1cm area has dark red with dry serum blister with PINK surrounding skin, no drainage/odor noted. Mariah care given,applied Z Guard cream and covered with Optifoam gentle sacral dressing. New photographs of wounds/skin issue are taken for reference. RECOMMENDATION: Continuation of all wound care orders prescribed by MD, continue with skin/wound plan of care, continue monitoring by wound care while patient is hospitalized. Addendum: 02/20/20 at 1648 by MICHAEL ZHANG RN RN Amended: Links added.
--- NOTE | 2020-02-20 18:00 | NUR ---
BEDSIDE Dr. Sebastian bedside. No new orders received.
[2020-02-20] MEDS: fentaNYL Drip 2500mCg/250mlNS 250 ML IV SCH ×2 (19:20→22:41)
[2020-02-20] MEDS: ACETAMINOPHEN 325 MG TAB PO PRN (21:50)
--- NOTE | 2020-02-20 22:19 | NUR ---
Pt's temp elevated to 102.4. Tylenol administered. Cooling blanket restarted. Pt repositioned. Will continue to monitor.
[2020-02-21] VITALS (62 sets, daily range): BP systolic 79–120; BP diastolic 49–94
--- NOTE | 2020-02-21 01:07 | NUR ---
Pt's temperature now 96.8. Cooling blanket turned off. Will continue to monitor.
[2020-02-21] MEDS: MIDAZOLAM DRIP 50 mg/50mL 50 ML IV SCH ×2 (01:53→22:03)
[2020-02-21] MEDS: NOREPINEPHRINE 8 MG/250ML KIT 250 ML IV SCH (02:24)
[2020-02-21] MEDS: PROPOFOL 100 ML IV SCH (04:16)
[2020-02-21] MEDS: InsuLIN REG 1unit/0.01ml Soln (100units/ml) SC SCH ×5 (06:00→23:38)
[2020-02-21] MEDS: ACCU-CHEK COMFORT CURVE STRIP VI SCH ×5 (06:00→23:22)
[2020-02-21] MEDS: METOCLOPRAMIDE HCL 5MG/ml INJ 2ml VIAL IV SCH ×3 (06:00→21:52)
[2020-02-21] MEDS: ALBUTEROL SULF 2.5 MG/0.5ML(0.5%) NEB SOLN NEB SCH ×3 (06:43→22:30)
[2020-02-21] MEDS: INSULIN LANTUS (GLARGINE) 1 /0.01ml (100units/ml) SC SCH (07:00)
--- NOTE | 2020-02-21 08:19 | NUR ---
OPENING Report received. Initiated care. Initial assessment complete.
[2020-02-21] MEDS: cefTRIAXone 1GM/50ML D5W 50 ML IV SCH (09:11)
--- NOTE | 2020-02-21 09:15 | NUR ---
THERMOREGULATION Patient cannot maintain normal body temperature. Stopping cooling measures at this time. Patient is having frequent episodes of fevers, followed by rapid cooling.
[2020-02-21] MEDS: ENOXAPARIN SOD 40 MG/0.4 ML SYRINGE SC SCH ×2 (09:50→21:53)
[2020-02-21] MEDS: FAMOTIDINE 20 MG TAB PO SCH ×2 (09:50→21:52)
[2020-02-21 10:48] LABS: Basophils # (auto) 0.1 10 ^3/uL (0-0.2); Eosinophils # (auto) 0.2 10 ^3/uL (0-0.8); Eosinophils % (auto) 1.5 % (0.0-7.0); White Blood Cell 12.5 10^3/uL (4.4-10.8)
[2020-02-21 10:50] LABS: Basophils % (auto) 0.7 % (0.0-2.0); Hematocrit 36.1 % (41.0-53.0); Hemoglobin 12.1 g/dL (13.5-17.5); Lymphocytes # (auto) 0.8 10 ^3/uL (0.4-5.4); Lymphocytes % (auto) 6.1 % (10.0-50.0); Mean Corpuscular Hemoglobin 26.4 pg (28.0-32.0); Mean Corpuscular Hgb Conc. 33.4 g/dL (32.0-36.0); Monocytes # (auto) 0.1 10 ^3/uL (0-1.3); Neutrophils # (auto) 11.3 10 ^3/uL (1.6-8.6); Neutrophils % (auto) 90.7 % (37.0-80.0); Nucleated Red Blood Cells % 0.1 %; Platelet Count (auto) 189 10^3/uL (140-450); Red Blood Cells 4.56 10^6/uL (4.5-5.90); Red Cell Distribution Width 16.9 % (11.8-14.3)
[2020-02-21 11:15] LABS: Albumin 1.5 g/dL (3.4-5.0); Calcium 7.5 mg/dL (8.5-10.1); Potassium 3.5 mmol/L (3.5-5.1)
[2020-02-21 11:21] LABS: BUN/Creatinine Ratio 13.8; Bilirubin, Total 1.5 mg/dL (0.2-1.0); Total Protein 5.4 g/dL (6.4-8.2)
[2020-02-21] MEDS: SODIUM CHLORIDE 0.9% 1,000 ML IV SCH (12:55)
[2020-02-21] MEDS: VANCOMYCIN 1GM/250ML 250 ML IV SCH (14:00)
[2020-02-21] MEDS ORDERED: CATHFLO ACTIVASE (ALTEPLASE) 2 MG VIAL IV ONE (19:15)
[2020-02-21] MEDS: fentaNYL Drip 2500mCg/250mlNS 250 ML IV SCH (23:22)
[2020-02-22] VITALS (64 sets, daily range): BP systolic 69–191; BP diastolic 41–94
[2020-02-22] MEDS: PROPOFOL 100 ML IV SCH ×4 (00:42→21:30)
[2020-02-22] MEDS: SODIUM CHLORIDE 0.9% 1,000 ML IV SCH (02:37)
[2020-02-22] MEDS: VANCOMYCIN 1GM/250ML 250 ML IV SCH ×2 (02:38→14:26)
[2020-02-22] MEDS: NOREPINEPHRINE 8 MG/250ML KIT 250 ML IV SCH ×3 (03:10→22:28)
[2020-02-22] MEDS ORDERED: STERILE WATER 10 ML ONE (03:52)
[2020-02-22] MEDS: MIDAZOLAM DRIP 50 mg/50mL 50 ML IV SCH ×4 (04:20→22:42)
[2020-02-22] MEDS: ALBUTEROL SULF 2.5 MG/0.5ML(0.5%) NEB SOLN NEB SCH ×3 (06:06→22:32)
[2020-02-22] MEDS: InsuLIN REG 1unit/0.01ml Soln (100units/ml) SC SCH ×3 (06:40→17:55)
[2020-02-22] MEDS: ACCU-CHEK COMFORT CURVE STRIP VI SCH ×3 (06:43→18:10)
[2020-02-22] MEDS: METOCLOPRAMIDE HCL 5MG/ml INJ 2ml VIAL IV SCH ×3 (06:43→21:11)
[2020-02-22] MEDS: INSULIN LANTUS (GLARGINE) 1 /0.01ml (100units/ml) SC SCH (07:00)
[2020-02-22 07:27] LABS: Eosinophils # (auto) 0.1 10 ^3/uL (0-0.8); Eosinophils % (auto) 1.2 % (0.0-7.0); Hemoglobin 11.6 g/dL (13.5-17.5); Lymphocytes # (auto) 0.7 10 ^3/uL (0.4-5.4); Lymphocytes % (auto) 6.7 % (10.0-50.0); Nucleated Red Blood Cells % 0.1 %; Red Cell Distribution Width 17.2 % (11.8-14.3)
--- NOTE | 2020-02-22 07:30 | NUR ---
ASSUMED CARE PATIENT ON MECHANICAL VENTILATOR, SEDATED CONNECTED TO BEDSIDE MONITORS. PATIENTS RECTAL TEMPERATURE IN PLACE. PATIENT HYPOTHERMIC, CURRENTLY WARMING. PATIENTS BODY TEMPERATURE LABILE. WILL CONTINUE TO MONITOR CLOSELY. PATIENT CURRENTLY SEDATED AND ON LEVOPHED, SEE IV SPREADSHEET. NAZARIO PRESENT AND DRAINING TO GRAVITY. BED IN LOW POSITION AND WITHIN VIEW OF NURSES STATION. WILL CONTINUE TO MONITOR CLOSELY
[2020-02-22 07:31] LABS: Basophils # (auto) 0.1 10 ^3/uL (0-0.2); Basophils % (auto) 0.6 % (0.0-2.0); Hematocrit 35.1 % (41.0-53.0); Mean Corpuscular Hemoglobin 26.1 pg (28.0-32.0); Mean Corpuscular Hgb Conc. 32.9 g/dL (32.0-36.0); Mean Corpuscular Volume 79.4 fL (80.0-100.0); Monocytes # (auto) 0.2 10 ^3/uL (0-1.3); Monocytes % (auto) 2.5 % (0.0-12.0); Neutrophils # (auto) 9.1 10 ^3/uL (1.6-8.6); Platelet Count (auto) 163 10^3/uL (140-450); Red Blood Cells 4.42 10^6/uL (4.5-5.90); White Blood Cell 10.2 10^3/uL (4.4-10.8)
[2020-02-22 07:46] LABS: Albumin 1.3 g/dL (3.4-5.0); Calcium 7.3 mg/dL (8.5-10.1)
[2020-02-22 07:50] LABS: BUN/Creatinine Ratio 22.7; Bilirubin, Total 1.4 mg/dL (0.2-1.0); Total Protein 5.1 g/dL (6.4-8.2)
[2020-02-22 07:55] LABS: Potassium 2.8 mmol/L (3.5-5.1)
--- NOTE | 2020-02-22 08:20 | NUR ---
PAGED DR Aileen CABA REGARDING CRITICAL POTASSIUM VALUE AWAITING RETURN CALL
[2020-02-22] MEDS: POTASSIUM CHL 20MEQ/100ML 100 ML IV SCH ×3 (08:45→12:30)
--- NOTE | 2020-02-22 09:13 | NUR ---
SEDATION VACATION HELD- NOT APPROPRIATE AT THIS TIME DUE TO PATIENTS HEMODYNAMICS AND RESPIRATORY REQUIREMENTS Addendum: 02/22/20 at 913 by Annabella Watt RN Amended: Links added.
[2020-02-22] MEDS ORDERED: POTASSIUM CHL 20MEQ/100ML 100 ML IV PRN (09:15)
[2020-02-22] MEDS ORDERED: MAGNESIUM SULFATE 1GM/100ML 100 ML IV PRN (09:15)
[2020-02-22] MEDS: cefTRIAXone 1GM/50ML D5W 50 ML IV SCH (09:30)
--- NOTE | 2020-02-22 09:30 | NUR ---
RESIDUALS TUBE FEEDINGS (GLUCERNA) CURRENTLY RUNNING AT 10ML/HR. GREATER THAN 50ML RESIDUAL NOTED. FEEDINGS STOPPED AT THIS TIME. WILL REASSESS
[2020-02-22] MEDS: FAMOTIDINE 20 MG TAB PO SCH ×2 (10:00→21:11)
[2020-02-22] MEDS: fentaNYL Drip 2500mCg/250mlNS 250 ML IV SCH ×2 (12:00→22:30)
--- NOTE | 2020-02-22 12:25 | NUR ---
Nutrition Followup Notes Wt 84.2 kg Pt is COVID positive. Pt is intubated and sedated with propofol running at 18.098 ml/hr providing 478 kcal from lipids. pt continues to be NPO [employer] needs BW 65 [id number] kcals (25-30 kcal/kgBW), Est Protein needs: 65-78 gms/day (1.0-1.2 gm/kgBW). Will continue to monitor and reassess prn. Labs: CA 7.3 L, ALB 1.3 L, GLU 172 H BM: Pt with last BM 02/12 per RN note Skin: BS 13 mod risk, skin intact, full details in direct care professional note PES; 1) Altered nutrition related lab values r.t current chronic medical condition aeb elev BUN hyperglycemia, mod hypoalb 2) Impaired swallowing r.t current medical condition aeb pt`s intubated sedated with order of NPO Comments: Will continue to monitor PO status, skin status, pertinent labs and weight trends. Will f/u in 2-3 days. 1) consider EN support with Glucerna @ 40 ml/hr per MD approval at current rate of propofol 2) advanced diet as medically feasible 3) refer to CDE on DC 4) continue current plan of care
--- NOTE | 2020-02-22 12:32 | NUR ---
PATIENTS REMY ERVIN CALLED PROVIDED PASSWORD. UPDATED ON CURRENT STATUS AND PLAN OF CARE. HE IS REQUESTING MD CALL HIM TO DISCUSS PATIENT STATUS AND MD RECOMMENDATIONS. WILL NOTIFY MD
--- NOTE | 2020-02-22 15:30 | NUR ---
HYPERTHERMIC PATIENTS RECTAL TEMPERATURE ELEVATED, COOLING BLANKET TURNED ON. WILL CONTINUE TO MONITOR CLOSELY
--- NOTE | 2020-02-22 15:50 | NUR ---
DR DEVRIES AT BEDSIDE DISCUSSED PATIENTS STATUS AND PLAN OF CARE. NEW ORDERS RECEIVED
[2020-02-22] MEDS ORDERED: FUROSEMIDE 40 MG/4 ML VIAL IV ONE (17:30)
--- NOTE | 2020-02-22 18:00 | NUR ---
PATIENTS TEMPERATURE LABILE COOLING BLANKET TURNED OFF RECTAL TEMPERATURE READING 97.3
--- NOTE | 2020-02-22 18:43 | NUR ---
DR Aileen CABA AT BEDSIDE DISCUSSED PATIENTS STATUS. STATES HE WILL CALL PATIENTS SON AT HIS REQUEST TO DISCUSS PATIENTS POOR PROGNOSIS
[2020-02-23] VITALS (80 sets, daily range): BP systolic 76–130; BP diastolic 40–71
[2020-02-23] MEDS: ACCU-CHEK COMFORT CURVE STRIP VI SCH ×4 (01:00→18:02)
[2020-02-23] MEDS: InsuLIN REG 1unit/0.01ml Soln (100units/ml) SC SCH ×4 (01:00→18:00)
[2020-02-23] MEDS: VANCOMYCIN 1GM/250ML 250 ML IV SCH ×2 (03:20→14:12)
[2020-02-23] MEDS: PROPOFOL 100 ML IV SCH (04:03)
[2020-02-23] MEDS: METOCLOPRAMIDE HCL 5MG/ml INJ 2ml VIAL IV SCH ×3 (05:35→21:13)
--- NOTE | 2020-02-23 05:40 | NUR ---
Regulating pt's temperature is still an issue. Pt's Tmax 102.6. Cooling blanket on. Oral care done. No blankets on pt. Will continue to monitor.
[2020-02-23] MEDS: NOREPINEPHRINE 8 MG/250ML KIT 250 ML IV SCH ×2 (06:33→23:43)
[2020-02-23] MEDS: ACETAMINOPHEN 325 MG TAB PO PRN (06:34)
[2020-02-23] MEDS: MIDAZOLAM DRIP 50 mg/50mL 50 ML IV SCH ×3 (06:34→23:47)
[2020-02-23] MEDS: ALBUTEROL SULF 2.5 MG/0.5ML(0.5%) NEB SOLN NEB SCH ×3 (06:46→22:28)
[2020-02-23] MEDS: INSULIN LANTUS (GLARGINE) 1 /0.01ml (100units/ml) SC SCH (07:00)
[2020-02-23] MEDS: cefTRIAXone 1GM/50ML D5W 50 ML IV SCH (09:00)
[2020-02-23] MEDS: FUROSEMIDE 40 MG/4 ML VIAL IV SCH (09:31)
[2020-02-23] MEDS: FAMOTIDINE 20 MG TAB PO SCH ×2 (09:31→21:13)
[2020-02-23 11:33] LABS: Basophils # (auto) 0 10 ^3/uL (0-0.2); Eosinophils # (auto) 0.1 10 ^3/uL (0-0.8); Hemoglobin 12.3 g/dL (13.5-17.5); Lymphocytes # (auto) 0.8 10 ^3/uL (0.4-5.4); Neutrophils # (auto) 13.1 10 ^3/uL (1.6-8.6); Nucleated Red Blood Cells % 0.1 %
[2020-02-23 11:35] LABS: Basophils % (auto) 0.3 % (0.0-2.0); Eosinophils % (auto) 0.5 % (0.0-7.0); Lymphocytes % (auto) 5.6 % (10.0-50.0); Mean Corpuscular Hemoglobin 25.6 pg (28.0-32.0); Mean Corpuscular Hgb Conc. 32.4 g/dL (32.0-36.0); Mean Corpuscular Volume 78.9 fL (80.0-100.0); Monocytes # (auto) 0.3 10 ^3/uL (0-1.3); Monocytes % (auto) 2.1 % (0.0-12.0); Neutrophils % (auto) 91.5 % (37.0-80.0); Platelet Count (auto) 161 10^3/uL (140-450); Red Blood Cells 4.81 10^6/uL (4.5-5.90); White Blood Cell 14.3 10^3/uL (4.4-10.8)
[2020-02-23 11:50] LABS: INR 1.34 (0.9-1.15); Partial Thromboplastin Time 35.9 sec (23.0-31.2)
[2020-02-23 11:55] LABS: Albumin 1.3 g/dL (3.4-5.0); Calcium 7.6 mg/dL (8.5-10.1); Potassium 3.2 mmol/L (3.5-5.1)
[2020-02-23 11:57] LABS: BUN/Creatinine Ratio 11.3; Bilirubin, Total 1.7 mg/dL (0.2-1.0); Total Protein 5.2 g/dL (6.4-8.2)
[2020-02-23] MEDS: POTASSIUM CHL 20MEQ/100ML 100 ML IV SCH ×2 (21:15→22:30)
[2020-02-23] MEDS: fentaNYL Drip 2500mCg/250mlNS 250 ML IV SCH (23:50)
[2020-02-24] VITALS (98 sets, daily range): BP systolic 67–216; BP diastolic 36–102
[2020-02-24] MEDS: VANCOMYCIN 1GM/250ML 250 ML IV SCH ×2 (02:00→14:31)
[2020-02-24] MEDS: EPINEPHrine HCL 250 ML IV SCH (03:31)
[2020-02-24] MEDS: VASOPRESSIN 50 UNITS in D5W 5% 247.5 ML IV SCH ×2 (03:45→19:30)
[2020-02-24 05:23] LABS: Basophils # (auto) 0 10 ^3/uL (0-0.2); Eosinophils # (auto) 0.1 10 ^3/uL (0-0.8); Hemoglobin 11.4 g/dL (13.5-17.5); Monocytes # (auto) 0.7 10 ^3/uL (0-1.3); Neutrophils # (auto) 12.9 10 ^3/uL (1.6-8.6); Nucleated Red Blood Cells % 0.1 %
[2020-02-24 05:25] LABS: Basophils % (auto) 0.3 % (0.0-2.0); Eosinophils % (auto) 0.5 % (0.0-7.0); Hematocrit 34.2 % (41.0-53.0); Lymphocytes % (auto) 6.9 % (10.0-50.0); Mean Corpuscular Hemoglobin 26.1 pg (28.0-32.0); Mean Corpuscular Hgb Conc. 33.2 g/dL (32.0-36.0); Mean Corpuscular Volume 78.8 fL (80.0-100.0); Monocytes % (auto) 4.8 % (0.0-12.0); Neutrophils % (auto) 87.5 % (37.0-80.0); Platelet Count (auto) 155 10^3/uL (140-450); Red Blood Cells 4.35 10^6/uL (4.5-5.90); Red Cell Distribution Width 17.2 % (11.8-14.3); White Blood Cell 14.7 10^3/uL (4.4-10.8)
[2020-02-24 05:39] LABS: Albumin 1.1 g/dL (3.4-5.0); Calcium 7.1 mg/dL (8.5-10.1); Potassium 4.2 mmol/L (3.5-5.1)
[2020-02-24 05:43] LABS: Bilirubin, Total 1.8 mg/dL (0.2-1.0); Total Protein 4.9 g/dL (6.4-8.2)
[2020-02-24] MEDS: ACCU-CHEK COMFORT CURVE STRIP VI SCH ×4 (06:00→18:01)
[2020-02-24] MEDS: InsuLIN REG 1unit/0.01ml Soln (100units/ml) SC SCH ×4 (06:00→18:01)
[2020-02-24] MEDS ORDERED: SODIUM CHLORIDE 0.9 % NEB SOLN 3ML NEB ONE ×2 (06:05→13:56)
[2020-02-24] MEDS: METOCLOPRAMIDE HCL 5MG/ml INJ 2ml VIAL IV SCH ×3 (06:07→22:00)
[2020-02-24] MEDS: INSULIN LANTUS (GLARGINE) 1 /0.01ml (100units/ml) SC SCH (07:00)
--- NOTE | 2020-02-24 09:12 | NUR ---
SEDATION VACATION- RECEIVED PATIENT OFF SEDATIONS STACKING BREATHS, INCREASED RESPIRATIONS. FENTANYL DRIP RESTARTED AT BEGINNING OF SHIFT Addendum: 02/24/20 at 0919 by Annabella Watt RN Amended: Links added.
[2020-02-24] MEDS: ALBUTEROL SULF 2.5 MG/0.5ML(0.5%) NEB SOLN NEB SCH ×3 (09:25→22:24)
[2020-02-24] MEDS: MAGNESIUM SULFATE 1GM/100ML 100 ML IV PRN ×3 (09:31→13:47)
[2020-02-24] MEDS: FUROSEMIDE 40 MG/4 ML VIAL IV SCH (10:48)
[2020-02-24] MEDS: PROPOFOL 100 ML IV SCH (10:49)
[2020-02-24] MEDS: cefTRIAXone 1GM/50ML D5W 50 ML IV SCH (11:30)
--- NOTE | 2020-02-24 11:52 | NUR ---
Nutrition Followup Notes Wt 84.2 kg Pt is COVID positive. Pt is intubated and sedated with propofol running at 18.098 ml/hr providing 478 kcal from lipids. pt with Glucerna 1.2 ordered at 40 ml/hr. Pt last received TF 02/21 per RN note, pt received 168ml with high residuals. Consider restarting TF when medically feasible Est [employer] needs BW 65 [id number] kcals (25-30 kcal/kgBW), Est Protein needs: 65-78 gms/day (1.0-1.2 gm/kgBW). Will continue to monitor and reassess prn. Labs: GLUC 159H, Alb 1.1L, Ca 7.1L BM: Pt with last BM 02/12 per RN note Skin: BS 9 high risk, skin intact, full details in career development specialist note PES; 1) Altered nutrition related lab values r.t current chronic medical condition aeb elev BUN hyperglycemia, mod hypoalb 2) Impaired swallowing r.t current medical condition aeb pt`s intubated sedated with order of NPO Comments: Will continue to monitor PO status, skin status, pertinent labs and weight trends. Will f/u in 2-3 days. 1) consider EN support with Glucerna @ 40 ml/hr per MD approval at current rate of propofol 2) advanced diet as medically feasible 3) refer to CDE on DC 4) continue current plan of care
--- NOTE | 2020-02-24 13:30 | NUR ---
DR DEVRIES AT BEDSIDE DISCUSSED PATIENTS STATUS AND PLAN OF CARE. ATTEMPTED TO CALL SON FOR MD TO DISCUSS PATIENT. NO ANSWER ON REMY ERVIN'S PHONE, UNABLE TO LEAVE MESSAGE
[2020-02-24] MEDS: FAMOTIDINE 20 MG TAB PO SCH ×2 (14:00→22:00)
--- NOTE | 2020-02-24 14:27 | NUR ---
PATIENTS SON ARCADIO CALLED PROVIDED PASSWORD. HE WAS INFORMED CONTINUOUS WAVE OPERATOR RECOMMENDATION. PATIENTS SON STATES THE FAMILY HAS DISCUSSED AND MADE DECISION TO WITHDRAWAL VENTILATOR ON SUNDAY 02/25 WHEN PATIENTS , SON AND DAUGHTER CAN BE PRESENT. CURRENTLY WAITING FOR DAUGHTER FROM OUT OF STATE TO ARRIVE. THEIR WISHES ARE TO KEEP PATIENT FULL CODE UNTIL THEY ALL CAN BE PRESENT
[2020-02-24] MEDS: MIDAZOLAM DRIP 50 mg/50mL 50 ML IV SCH (19:30)
[2020-02-24] MEDS: fentaNYL Drip 2500mCg/250mlNS 250 ML IV SCH (19:30)
--- NOTE | 2020-02-24 19:45 | NUR ---
Opening Shift Note: Patient is intubated/sedated. ET size 8.0/24 @ lip. Settings: AC rate 16, FiO2 85%, PEEP 10, vT 450. Neuro: 2 mm/sluggish pupils; flaccid extremities; hypoactive cough/ hypoactive gag. Cardio: ST 100s ; BPs 110s; pulses palpable but weak. Resp: ET secretions minimal thick/yellow; oral secretions min rust; anterior lung sounds diminished in throughout. GI: OGT clamped; not tolerating feedings per report. Ackerman inserted on 01/20/20 for strict I/O; ackerman replaced on 02/21/20. Skin: Stage II sacral area: optifoam in place with zguard; left heel healing DTI NELY; right ear scab NELY. IV: right IJ TLC running Fentanyl @ 100; Versed @ 2; Levo @ 18; vasopressin @ 0.05 inserted on 01/20/20. COVID positive, all precautions in place per protocol. Will continue to round/reposition/perform oral care prn. Per report, possible terminal wean on Friday02/26/20.
--- NOTE | 2020-02-24 20:11 | NUR ---
Dr. Eleuterio Pink at bedside. Will obtain repeat COVID test per order.
--- NOTE | 2020-02-24 21:00 | NUR ---
TIA specimen taken to lab personally.
--- NOTE | 2020-02-24 22:24 | NUR ---
FIO2 TITRATED TO 70%, SPO2 NOTED AT 97%.
[2020-02-25] VITALS (98 sets, daily range): BP systolic 82–153; BP diastolic 48–93
[2020-02-25] MEDS: InsuLIN REG 1unit/0.01ml Soln (100units/ml) SC SCH ×5 (00:30→23:59)
[2020-02-25] MEDS: ACCU-CHEK COMFORT CURVE STRIP VI SCH ×5 (00:30→23:58)
[2020-02-25] MEDS: VANCOMYCIN 1GM/250ML 250 ML IV SCH ×2 (01:15→14:00)
[2020-02-25] MEDS: NOREPINEPHRINE 8 MG/250ML KIT 250 ML IV SCH ×2 (01:15→12:59)
[2020-02-25] MEDS: EPINEPHrine HCL 250 ML IV SCH (01:52)
--- NOTE | 2020-02-25 04:00 | NUR ---
Patient bathe/linen change Patient given complete CHG bath. Skin integrity assessed for any changes. Linens and gown changed. Right IJ TLC dressing changed using sterile technique. Patient repositioned for comfort.
[2020-02-25] MEDS: METOCLOPRAMIDE HCL 5MG/ml INJ 2ml VIAL IV SCH ×3 (05:00→22:27)
[2020-02-25] MEDS: INSULIN LANTUS (GLARGINE) 1 /0.01ml (100units/ml) SC SCH (05:01)
[2020-02-25 05:12] LABS: Eosinophils # (auto) 0.1 10 ^3/uL (0-0.8); Nucleated Red Blood Cells % 0.1 %
[2020-02-25 05:15] LABS: Basophils # (auto) 0 10 ^3/uL (0-0.2); Basophils % (auto) 0.2 % (0.0-2.0); Eosinophils % (auto) 0.5 % (0.0-7.0); Hematocrit 31.1 % (41.0-53.0); Hemoglobin 10.5 g/dL (13.5-17.5); Lymphocytes # (auto) 0.9 10 ^3/uL (0.4-5.4); Lymphocytes % (auto) 5.4 % (10.0-50.0); Mean Corpuscular Hemoglobin 26.3 pg (28.0-32.0); Mean Corpuscular Hgb Conc. 33.9 g/dL (32.0-36.0); Mean Corpuscular Volume 77.5 fL (80.0-100.0); Monocytes # (auto) 0.6 10 ^3/uL (0-1.3); Monocytes % (auto) 3.5 % (0.0-12.0); Neutrophils # (auto) 15.4 10 ^3/uL (1.6-8.6); Neutrophils % (auto) 90.4 % (37.0-80.0); Platelet Count (auto) 162 10^3/uL (140-450); Red Blood Cells 4.01 10^6/uL (4.5-5.90)
[2020-02-25 05:33] LABS: Albumin 1.2 g/dL (3.4-5.0); Potassium 3.5 mmol/L (3.5-5.1)
[2020-02-25 05:38] LABS: BUN/Creatinine Ratio 12.3; Bilirubin, Total 2.1 mg/dL (0.2-1.0); Total Protein 4.9 g/dL (6.4-8.2)
--- NOTE | 2020-02-25 05:45 | NUR ---
HR/BP/RR Elevation Upon patient rounding, patient's HR in 150s, SBP 160s, and RR in the 30s with labored breathing/accessory muscle use; oxygen saturation in low 80s; low peak pressures; . No events precipitated the event. Suctioning of ET tube/oral completed with no change in vital signs. Bite block inserted to prevent patient from biting on tube; no change in vital signs. Sedations increased to promote ventilator synchrony with little success in lower the HR to the 130s; SBP 150s; RR high 20s-low 30s. Repositioned head to prevent any kinks in IV tubing to right IJ TLC. Blood return checked on all IJ ports; all ports have positive blood return. Patient's rectal temp is 100.2. Cooling measures started with ice bags on chest/bilateral armpits, and bilateral groin area. Will assess vital signs closely.
[2020-02-25] MEDS: ALBUTEROL SULF 2.5 MG/0.5ML(0.5%) NEB SOLN NEB SCH ×3 (07:43→22:46)
[2020-02-25] MEDS: POTASSIUM CHL 20MEQ/100ML 100 ML IV PRN ×2 (08:32→11:07)
--- NOTE | 2020-02-25 09:05 | NUR ---
SEDATION VACATION HELD- NO APPROPRIATE DUE TO HEMODYNAMICS AND RESPIRATORY STATUS Addendum: 02/25/20 at 0905 by Annabella Watt RN Amended: Links added.
[2020-02-25] MEDS: cefTRIAXone 1GM/50ML D5W 50 ML IV SCH (10:00)
[2020-02-25] MEDS: FUROSEMIDE 40 MG/4 ML VIAL IV SCH (10:30)
[2020-02-25] MEDS: FAMOTIDINE 20 MG TAB PO SCH ×2 (10:30→22:27)
[2020-02-25] MEDS: PROPOFOL 100 ML IV SCH (11:21)
[2020-02-25] MEDS: MIDAZOLAM DRIP 50 mg/50mL 50 ML IV SCH ×2 (12:53→22:28)
[2020-02-25] MEDS: fentaNYL Drip 2500mCg/250mlNS 250 ML IV SCH (12:55)
--- NOTE | 2020-02-25 13:05 | NUR ---
DR DEVRIES AT BEDSIDE DISCUSSED PATIENTS STATUS AND FAMILYS WISHES.
[2020-02-25] MEDS: VASOPRESSIN 50 UNITS in D5W 5% 247.5 ML IV SCH (18:28)
--- NOTE | 2020-02-25 19:30 | NUR ---
OPEN ASSUMED CARE OF MALE PT ORALLY INTUBATED. PT SEDATED ON FENTANYL GTT 200 MCG/HR, AND VERSED GTT 5 MG/HR. PUPILS REACTIVE. COUGH AND GAG HYPOACTIVE. SR ON PRINT DEVELOPER. PT ON LEVOPHED GTT 10 MCG/MIN, AND VASOPRESSIN GTT 0.05 UNIT/MIN. OGT IN PLACE TO LIS DRAINING DARK GREEN BILE. PLACEMENT VERIFIED. RIJ TLC IN PLACE. ALL PORTS PATENT.DRESSING CDI. NAZARIO TO GRAVITY DRAINING CLEAR LIGHT WEN URINE. DELBERT SCD'S IN PLACE. PT WITH SUPERFICIAL PRESSURE WOUND TO COCCYX WITH ZGAURD AND OPTIFOAM GENTLE SACRAL DRESSING IN PLACE. PT ON SPECIALTY AIR MATTRESS WITH PILLOWS USED TO OFFLOAD BONY PROMINENCES AND DELBERT HEELS. PT WITH DTI TO R. EAR. BLANCHABLE PINK TO L. EAR. BLANCHABLE PINK TO L. HEEL. NO INDICATION OF PAIN OBSERVED. PT ON COOLING BLANKET FOR TEMP MANAGEMENT. BED IN LOWEST LOCKED POSITION. SIDE RAILS UP X 2. HOB ELEVATED 30 DEGREES. PT IN FULL VIEW OF RN STATION. PT COVID 19 POSITIVE IN NEGATIVE PRESSURE ROOM WITH PROPPER PPE IN USE. WILL CONTINUE TO CLOSELY MONITOR.
--- NOTE | 2020-02-25 20:00 | NUR ---
RESP/SEDATION PT DOUBLE STACKING ON VENT. VERSED INCREASED PER PROTOCOL. SEE IV SPREADSHEET.
[2020-02-25] MEDS: ACETAMINOPHEN 325 MG TAB PO PRN (22:27)
--- NOTE | 2020-02-25 22:30 | NUR ---
RESPIRATORY PT DESATURATING SPO2 83%. 100% FIO2 DELIVERED ON VENT. R.T. NOTIFIED. FI02 INCREASED TO 80% PER R.T.
[2020-02-26] VITALS (53 sets, daily range): BP systolic 101–133; BP diastolic 58–75
--- NOTE | 2020-02-26 | NUR ---
TEMP MANAGEMENT PT NOW WITHIN NORMAL TEMPERATURE RANGE. COOLING BLANKET SHUT OFF.
[2020-02-26] MEDS: EPINEPHrine HCL 250 ML IV SCH (03:31)
--- NOTE | 2020-02-26 04:00 | NUR ---
RESP/SEDATION PT WITH INCREASED WORK OF BREATHING. VERSED GTT INCREASED PER PROTOCOL. SEE IV SPREADSHEET.
[2020-02-26 05:12] LABS: Eosinophils # (auto) 0.1 10 ^3/uL (0-0.8); Eosinophils % (auto) 0.3 % (0.0-7.0)
[2020-02-26 05:13] LABS: Basophils # (auto) 0 10 ^3/uL (0-0.2); Basophils % (auto) 0.3 % (0.0-2.0); Hematocrit 32.4 % (41.0-53.0); Lymphocytes # (auto) 0.7 10 ^3/uL (0.4-5.4); Lymphocytes % (auto) 4.3 % (10.0-50.0); Mean Corpuscular Hemoglobin 26.1 pg (28.0-32.0); Mean Corpuscular Hgb Conc. 34.1 g/dL (32.0-36.0); Mean Corpuscular Volume 76.6 fL (80.0-100.0); Monocytes # (auto) 0.5 10 ^3/uL (0-1.3); Neutrophils # (auto) 14.8 10 ^3/uL (1.6-8.6); Neutrophils % (auto) 92.1 % (37.0-80.0); Platelet Count (auto) 140 10^3/uL (140-450); Red Blood Cells 4.23 10^6/uL (4.5-5.90); Red Cell Distribution Width 16.8 % (11.8-14.3)
[2020-02-26 05:31] LABS: BUN/Creatinine Ratio 14.6; Calcium 7.1 mg/dL (8.5-10.1); Potassium 3.7 mmol/L (3.5-5.1)
[2020-02-26 05:40] LABS: Bilirubin, Total 3.1 mg/dL (0.2-1.0); Total Protein 5.3 g/dL (6.4-8.2)
[2020-02-26 05:59] LABS: Albumin 0.9 g/dL (3.4-5.0)
[2020-02-26] MEDS: InsuLIN REG 1unit/0.01ml Soln (100units/ml) SC SCH ×2 (06:00→12:00)
[2020-02-26] MEDS: ACCU-CHEK COMFORT CURVE STRIP VI SCH ×2 (06:04→12:00)
[2020-02-26] MEDS: METOCLOPRAMIDE HCL 5MG/ml INJ 2ml VIAL IV SCH (06:04)
[2020-02-26] MEDS: INSULIN LANTUS (GLARGINE) 1 /0.01ml (100units/ml) SC SCH (06:04)
[2020-02-26] MEDS: MIDAZOLAM DRIP 50 mg/50mL 50 ML IV SCH (06:39)
[2020-02-26] MEDS: ALBUTEROL SULF 2.5 MG/0.5ML(0.5%) NEB SOLN NEB SCH (07:12)
[2020-02-26] MEDS: cefTRIAXone 1GM/50ML D5W 50 ML IV SCH (09:00)
[2020-02-26] MEDS: FAMOTIDINE 20 MG TAB PO SCH (09:07)
[2020-02-26] MEDS: FUROSEMIDE 40 MG/4 ML VIAL IV SCH (10:00)
[2020-02-26] MEDS: PROPOFOL 100 ML IV SCH (11:21)
--- NOTE | 2020-02-26 12:00 | NUR ---
FAMILY AT BEDSIDE, EDUCATED ON NEED TO WEAR PPE AND RN ASSISTED THEM INTO PPE PRIOR TO ENTERING ROOM. FAMILY DECIDED TO TERMINALLY WEAN PATIENT TODAY AND DR JAY JAY OBTAINED YESTERDAY FROM DR Aileen MARCELO AND CODE STATUS FORM IN CHART. ALL QUESTIONS ADDRESSED WITH FAMILY. , SON AND TWO DAUGHTERS AT BEDSIDE. DR ROWAN AWARE OF TERMINAL WEANAND DR Aileen MARCELO PAGED REGARDING FAMILY ARRIVAL.
--- NOTE | 2020-02-26 13:00 | NUR ---
FAMILY READY TO TERMINALLY WEAN, OUTSIDE OF ROOM AFTER DOFFING PPE AND WASHING HANDS AND MARQUES RT AT BEDSIDE AND EXTUBATED PATIENT. RN TURNED OFF ALL IV MEDICATIONS CURRENTLY INFUSING.
--- NOTE | 2020-02-26 13:20 | NUR ---
ASYSTOLE AT 1307 FOR APPROXIMATELY 1 MINUTE THEN PECAN MALLOW DIPPER READING SB 40'S AND AT 1320 ASYSTOLE AGAIN. ALONZO SPAULDINGMEDICAL STAFF ASSISTANT PAGED TO PRONOUNCE AND LEFT MESSAGE FOR DR Aileen MARCELO.
--- NOTE | 2020-02-26 13:50 | NUR ---
PRONOUNCEMENT OF ASKED TO PRONOUNCE PT DR. CABA UNAVAILABLE. PT WAS TERMINALLY WEANED AT 1300. FAMILY HAS BEEN IN TO SEE HIM WITH FULL PPE. PT FOUND PULSELESS AND APNEIC. ASYSTOLE IN 3 LEADS. NO HEART TONES OR RESPIRATIONS AFTER ONE FULL MINUTE OF AUSCULTATION. NO CORNEAL, GAG OR DTR'S. TOD 1350
--- NOTE | 2020-02-26 14:29 | NUR ---
TALENT [employer] CALLED DISPATCH STATED THEY WILL CALL BACK
--- NOTE | 2020-02-26 14:30 | NUR ---
DR MARCELO CALLED BACK AFTER 2 VOICEMAILS LEFT AWARE OF TIME OF
--- NOTE | 2020-02-26 14:40 | NUR ---
SPOKE WITH [employer] STATED PATIENT IS NOT A CANDIDATE FOR ORGAN/TISSUE DONATION WITH REFERENCE NUMBER [id number]
--- NOTE | 2020-02-26 14:51 | NUR ---
PER SON ARCADIO URRUTIA, PATIENT HAS CONTRACT WITH [employer] PHONE NUMBER [phone] WITH . RN WILL CALL ONCE MELT HOUSE DRAG OPERATOR RELEASES BODY. BELONGINGS DOUBLE BAGGED AND OUTSIDE OF ROOM FOR FAMILY TO INFORMATION SYSTEMS MANAGER FROM UNIT PER THEIR REQUEST.
--- NOTE | 2020-02-26 15:49 | NUR ---
Nutrition Followup Notes Wt 84.2 kg Pt is COVID positive. Pt is intubated and sedated with Fenanyl and Versed. Pt last received TF 02/21, discontinued d/t pt with high residuals. Per RN doc, pt residuals are being monitored. Est Energy needs BW 65 [id number] kcals (25-30 kcal/kgBW), Est Protein needs: 65-78 gms/day (1.0-1.2 gm/kgBW). Will continue to monitor and reassess prn. Labs: GLUC 127 H, BUN 22 H, Cr 1.561 H, GFR 49 L BM: Pt with last BM 02/12 per RN note Skin: BS 10 high risk, skin intact, full details in health care recruiter note PES; 1) Altered nutrition related lab values r.t current chronic medical condition aeb elev BUN hyperglycemia, mod hypoalb 2) Impaired swallowing r.t current medical condition aeb pt`s intubated sedated with order of NPO Comments: Will continue to monitor PO status, skin status, pertinent labs and weight trends. Will f/u in 2-3 days. 1) consider EN support with Glucerna @ 40 ml/hr per MD approval at current rate of propofol 2) advanced diet as medically feasible 3) refer to CDE on DC 4) continue current plan of care
--- NOTE | 2020-02-26 16:43 | NUR ---
SPOKE WITH [employer] PORTAL CONSULTANT KASEY PARR, RELEASED BODY TO [employer]. NO [employer] PORTAL CONSULTANT CASE NUMBER.
--- NOTE | 2020-02-26 17:30 | NUR ---
[employer] CALLED STATING THEY WILL COME REGULATORY AFFAIRS ASSOCIATE BODY IN 1.5 HRS [place] RN AND AUDIO VISUAL SPECIALIST AWARE
--- NOTE | 2020-02-26 18:00 | NUR ---
FAMILY AWARE PICKUP TIME, BELONGINGS LEFT WITH FOUNDATION DRILL OPERATOR STATED THEY WILL FRUIT LOADER MACHINE OPERATOR BELONGINGS TOMORROW. FOUNDATION DRILL OPERATOR AWARE.
[2020-02-26] MEDS: NOREPINEPHRINE 8 MG/250ML KIT 250 ML IV SCH (18:59)
--- NOTE | 2020-02-26 19:09 | NUR ---
[employer] PICKED UP BODY AT THIS TIME.
== END 2020-02-26 19:10 | disposition expired | DRG 207 ==
LOC: EDUNIT# 19:28 → ER 19:28 → EDBD 19:28 → TELE 19:29 → ICU WEST 01-22 16:20
PROVIDERS: ADMIT Nurse Practitioner; ATTEND Internal Medicine
PROC: 5A09357 Assistance with Respiratory Ventilation, Less than 24 Consecutive Hours, Continuous Positive Airway Pressure (ICD-10-PCS; principal; 2020-01-20)
PROC: 5A1955Z Respiratory Ventilation, Greater than 96 Consecutive Hours (ICD-10-PCS; 2020-01-20)
PROC: 0BH17EZ Insertion of Endotracheal Airway into Trachea, Via Natural or Artificial Opening (ICD-10-PCS; 2020-01-20)
PROC: XW13325 Transfusion of Convalescent Plasma (Nonautologous) into Peripheral Vein, Percutaneous Approach, New Technology Group 5 (ICD-10-PCS; 2020-02-04)
PROC: XW043E5 Introduction of Remdesivir Anti-infective into Central Vein, Percutaneous Approach, New Technology Group 5 (ICD-10-PCS; 2020-02-08)
PROC: 02HV33Z Insertion of Infusion Device into Superior Vena Cava, Percutaneous Approach (ICD-10-PCS; 2020-02-20)
DX: U07.1 COVID-19 (principal); A41.9 Sepsis, unspecified organism; J96.01 Acute respiratory failure with hypoxia; J12.89 Other viral pneumonia; G93.41 Metabolic encephalopathy; R65.21 Severe sepsis with septic shock; N17.9 Acute kidney failure, unspecified; E11.65 Type 2 diabetes mellitus with hyperglycemia; N28.9 Disorder of kidney and ureter, unspecified; I10 Essential (primary) hypertension; D69.6 Thrombocytopenia, unspecified; D69.59 Other secondary thrombocytopenia; E87.6 Hypokalemia; E83.39 Other disorders of phosphorus metabolism; Z74.01 Bed confinement status; E88.09 Other disorders of plasma-protein metabolism, not elsewhere classified
CPT/HCPCS: 36415; 36600; 70450; 71045; 80048; 80053; 80076; 80202; 80307; 81001; 82565; 82728; 82805; 82962; 83605; 83615; 83735; 83880; 84100; 84132; 84443; 84484; 85007; 85025; 85027; 85379; 85610; 85730; 86141; 86850; 86900; 86901; 87040; 87070; 87077; 87081; 87086; 87088; 87186; 87205; 93005; 93970; 94002; 94003; 94640; 94660; 96361; 96365; 96375; 99291; A4605; G0378; J0330; J0696; J1100; J1815; J1956; J2001; J2185; J2250; J2543; J2704; J3480; J3490; J7060